=== PATIENT | female | born 1985 | race Caucasian/White ===

== ENCOUNTER 2017-11-18 11:04 | Emergency (ER) | payer OTHER, SELFPAY ==
[2017-11-18 11:06] VITALS: BP 126/69; PULSE 99; RESP 16; TEMP 36.6; O2SAT 99; BMI 29.7
[2017-11-18 11:47] LABS: Absolute Lymphocyte Count 1.35 X10^3/ul (0.83-4.51); Absolute Neutrophil Count 5.6 X10^3/uL (2.0-7.7); Basophil# 0.04 X10^3/uL; Basophil% 0.5 % (0-1); Eosinophils% 1.3 % (0-5); Hematocrit 42.3 % (37-47); Lymphocyte # 1.35 X10^3/ul (4.0); Lymphocyte % 17.9 % (19-41); Mean Corp Hgb Conc 35.5 g/gl (32-36); Mean Corpuscular Hgb 29.6 pg (27.0-32.0); Mean Corpuscular Volume 83.6 fL (81-99); Mean Platelet Vol. 9.5 fl (6.2-12.0); Monocyte# 0.41 X10^3/uL; Monocyte% 5.4 % (0-10); Neutrophil # 5.63 X10^3/uL (2.7-7.7); Neutrophil % 74.8 % (47-70); POSITIVE COUNT NO; POSITIVE DIFFERENTIAL NO; POSITIVE MORPHOLOGY NO; Platelet Count 212 K/mm3 (150-450); RBC Distribution Width CV 12.7 % (11.6-14.6); RBC Distribution Width SD 38.5 fl (35.1-43.9); Red Blood Count 5.06 M/mm3 (4.2-5.4); White Blood Count 7.5 K/mm3 (4.4-11.0)
[2017-11-18 11:48] VITALS: BP 115/73; BP 119/82; PULSE 84; PULSE 89
[2017-11-18] MEDS: 0.9% Normal Saline 1,000 ML 1000 ML IV (11:50)
[2017-11-18 12:03] LABS: Anion Gap 8 (5-15); BUN 12 mg/dL (7-18); BUN/Creat Ratio 17.1 RATIO (10-20); Calcium,Total 8.9 mg/dL (8.5-10.1); Chloride 106 mmol/L (98-107); EST Glomerular Filtration Rate 102 mL/min (>60); Est Glom Filt Rate - Afr Amer 124 mL/min (>60); Estimated Creatinine Clearance 116.39 ml/min; Glucose 92 mg/dL (74-106); Sodium Level 140 mmol/L (136-145)
--- NOTE | 2017-11-18 13:02 | ED.VISSUMM ---
- ER Visit Summary Date of Service: 11/18/17 Chief Complaint: Syncope and lightheadedness History of Present Illness: The patient is a 32 F who presents because of inability to stand without assistance. Last evening while she was putting on her sleep attire she passed out. She does recall becoming warm nauseous prior to passing out. She denies any vomiting or diarrhea. She denies black or maroon stool. She denies any abdominal pain or back pain. She has not had a menstrual period in 1 years since she underwent ablation. She denies fever, chills or night sweats. She denies chest pain, shortness of breath or difficulty breathing. She denies leg pain, swelling or discoloration. She denies any urologic symptoms. For chronic back pain secondary to occupation. was concerned because she complains of bifrontal headache and light sensitivity. She denies neck pain or neck stiffness. She denies any other symptoms. Please read written note. Physical Examination: Vital signs are normal. Orthostatic vital signs were unobtainable because patient cannot stand. Head is atraumatic normocephalic. Pupils are equal round reactive. Extraocular muscles are intact. TMs are pearly white with landmarks noted. Nares patent with no drainage. Posterior pharynx without erythema or exudate. Uvula is midline. There is no dysphonia or dysphasia. Trachea is midline. There is no stridor with auscultation of the neck. Heart is regular without murmur, gallop or rub. S1 and S2 are normal. Lungs are clear to auscultation with good movement of air bilaterally. Abdomen is soft nontender. No hepatosplenomegaly. No guarding or rebound tenderness. There is no asymmetry, swelling, discoloration, leg vein distention, palpable cords or tenderness along the distribution of the deep venous system. Patient is alert and oriented ?3. Motor is 5 over 5. Sensory is intact. DTRs are symmetric with no clonus or Babinski sign. Cranial 2 through 12 are intact. Cerebellar testing is normal. Test Results: CBC and BMP are unremarkable. Orthostatic vital signs are positive. Emergency Department Course and Treatment: Static vital signs and baseline blood work. She did receive 1 L normal saline. After receiving the 1 L normal saline she is now able to stand and was able to walk to the restroom to void. Treatment Plan: Appropriate home-going instructions Disposition: Discharged home in stable and improved condition with spouse Impression: 1. Vasovagal syncopal episode 2. Orthostatic hypotension This note was generated with [employer] dictation software. It may contain incorrect words, spelling, and punctuation that were not noted in review of the chart prior to signing ED Disposition - Plan for ED Patient: Disposition: Home or Assisted Living Chief Complaint: Syncope Instructions: ED Hypotension Orthostatic, ED Syncope Vasovagal Referrals: Jovana Rudd MD [Primary Care Provider] - As Needed
--- NOTE | 2017-11-18 13:12 | ED.RN ---
REVIEWED D/C INSTRUCTIONS, FOLLOW UP CARE, AND S/S THAT WOULD WARRANT A RETURN TO THE ED WITH PT. PT VERBALIZED AN UNDERSTANDING AND DENIES FURTHER QUESTIONS FOR THIS RN. PT SKIN P/W/D, RESP EVEN AND UNLABORED, PT A&O X 3, NO DISTRESS NOTED. PT AMBULATED OUT OF ED, GAIT STEADY.
== END 2017-11-18 13:12 | disposition home or self-care (01) ==
PROVIDERS: Emergency Provider Emergency Medicine; Family Provider Internal Medicine; PCP Internal Medicine
DX: I95.1 Orthostatic hypotension (principal); F32.9 Major depressive disorder, single episode, unspecified
CPT/HCPCS: 80048; 85025; 99284

== ENCOUNTER → 2024-12-11 | Outpatient (CLI) | payer BC, SELFPAY ==
--- NOTE | 2024-12-11 12:56 | US_ITS ---
PROCEDURE: PELVIC W/ TRANSVAGINAL 12/11/2024 REASON FOR EXAM: PELVIC PAIN; POST ABLATION 2016 TECHNIQUE: Transabdominal pelvic ultrasound COMPARISON: None. FINDINGS: The uterus is retroverted and heterogeneous in appearance. The uterus measures up to 8.6 x 6.4 x 5.4 cm. A fibroid is noted within the uterus measuring up to 2 x 1.6 x 1.5 cm. The fibroid is located within the posterior wall. The endometrial thickness measures up to 6.5 mm. The ovaries demonstrate normal arterial and venous flow without evidence of ovarian torsion. The right ovary measures up to 2.4 x 3.1 x 2.3 cm. The left ovary measures up to 2.9 x 3.8 x 1.7 cm. Bilateral ovaries contains cysts. Trace free fluid seen within the cul-de-sac. US/Pelvic w/ Transvaginal IMPRESSION: The uterus appears somewhat heterogeneous. Correlate clinically for adenomyosi s. A 2 cm fibroid is noted within the uterus. No evidence of ovarian torsion. Reading Location: [id number]
== END | disposition home or self-care (01) ==
PROVIDERS: Referring Provider Nurse Practitioner Family; Visit Provider Nurse Practitioner Family
DX: R10.2 Pelvic and perineal pain (principal)
CPT/HCPCS: 76830; 76856

== ENCOUNTER 2025-05-08 05:22 | Day surgery (SDC) | payer BC, SELFPAY ==
[2025-04-24 16:43] LABS: Hematocrit 39.0 % (37-47); Hemoglobin 13.1 g/dL (12.0-15.0); Immature Granulocytes Count 0.030 X10^3/uL (0.0-0.0); Mean Corp Hgb Conc 33.6 g/dL (32-36); Mean Corpuscular Volume 86.9 fL (81-99); Mean Platelet Vol. 9.5 fl (6.2-12.0); NRBC Flagged by Analyzer 0 % (0-5); Platelet Count 263 K/mm3 (150-450); RBC Distribution Width CV 12.4 % (11.6-14.6); RBC Distribution Width SD 39.3 fl (35.1-43.9); Red Blood Count 4.49 M/mm3 (4.2-5.4); White Blood Count 9.0 K/mm3 (4.4-11.0)
[2025-04-24 17:04] LABS: Magnesium 1.9 mg/dL (1.5-2.2)
[2025-05-08] VITALS (15 sets, daily range): BP systolic 109–155; BP diastolic 72–97; PULSE 70–93; RESP 14–22; TEMP 36.1–36.9; O2SAT 95–100; BMI 32.8
--- OUTSIDE RECORDS SUMMARY | 2025-05-08 05:25 | XMS RPT_ITS | CCD ---
Author Organization [facility] Care Team Providers Care Certified Peer Specialist Name Role Phone PHYSICIAN, NONE Primary Care Physician Unavailab Starla Manrique MD Primary Care Provider CLEMENTE SEGURA MD Attending Unavailable BILLY MADISON MD Attending Unavailable STARLA EDDY Primary Care Unavailable PODLOGARCAROL Attending Unavailable STARLA EDDY Primary Care Unavailable Dr. Starla Eddy MD Primary Care Provider Dr. Starla Eddy MD Referring Provider Anayeli Garcia Attending Provider Krishna RIVET TESTER-CAnayeli Referring Provider Care Physician, No Primary Primary Care Provider Unavailable Care Physician, No Primary Referring Provider Un available Dr. Ambika Prieto DO Attending Provider Care Physician, No Primary Primary Care Provider Unavailable Ambika Prieto Attending Unavailabl e Care Physician, No Primary Referring Unava ilable Care Physician, No Primary Primary Care Unava ilable Care Physician, No Primary Primary Care Unava ilable Ambika Prieto Attending Unavailabl e Care Physician, No Primary Referring Unava ilable Care Physician, No Primary Primary Care Unava ilable Ambika Prieto Attending Unavailabl e Care Physician, No Primary Referring Unava ilable Starla Eddy Referring Unavailable Starla Eddy Primary Care Unavailable Anayeli Keller Attending Unavailable Ambika Prieto Attending UnavailAmbika Jacques Referring Unavailabl e Care Physician, No Primary Primary Care Unava ilable Care Physician, No Primary Primary Care Unava ilable Anayeli Keller Attending Unavailable Anayeli Keller Referring Unavailable Anayeli Keller Referring Unavailable Care Physician, No Primary Primary Care Unava ilable Barkman, Anayeli Attending Unavailable Medications Current Medications Medication Drug Class(es) Dates Sig (Normalized) Sig (Original) acetaminophen 325 mg / HYDROcodone bitartrate 5 mg oral tablet (2 sources) Opioid Agonist Start: 2024 End: 02-19-2024 take 1 tablet by mouth every six hours as needed for pain Hudson 325- 5 mg oral tablet Dose = 1 tab(s), Oral, q6h, PRN As needed for severe pain, X 3 day(s), # 12 tab(s), 0 Refill(s), Pyelonephritis, 87 Start Date: 02/16/24 Stop Date: 02/19/24 Status: Ordered Start: 02-18-2023 End: 02-21-2023 take 1 tablet by mouth every four hours as needed for pain Hudson 325- 5 mg oral tablet Dose = 1 tab(s), Oral, q4h, PRN as needed for pain, X 3 day(s), # 18 tab(s), 0 Refill(s), [facility]acy: [facility] #[id number], Status post laparoscopy Status post hysteroscopy, 170.2, cm, 02/18/23 7:15:00 EDT, Height, 92.7 Start Date: 02/18/23 Stop Date: 02/21/23 Status: Ordered cephalexin 500 mg oral capsule (3 sources) Cephalosporin Antibacterial Start: 02-12-2024 End: 02-22-2024 cephalexin 500 mg oral capsule Dose : 500 mg = 1 cap(s), Oral, q6hr, X 10 day(s), # 40 cap(s), 0 Refill(s), 02/22/24 5:43:00 PM EDT, 92.7 Start Date: 02/12/24 Stop Date: 02/22/24 Status: Ordered ibuprofen 600 mg oral tablet (3 sources) Nonsteroidal Anti-inflammatory Drug Start: 02-18-2023 ibuprofen 600 mg oral tablet Dose : 600 mg = 1 tab(s), Oral, q6h, # 40 tab(s), 0 Refill(s), Pharmacy: [facility] #[id number], 170.2, cm, 02/18/23 7:15:00 EDT, Height Start Date: 6/29/23 Status: Ordered magnesium gluconate 500 mg oral tablet (4 sources) Start: 02-04-2023 magnesium gluconate 500 mg oral tablet Dose : 1,000 mg = 2 tab(s), Oral, qHS, 0 Refill(s) Start Date: 02/04/23 Status: Ordered multivitamin tablet (3 sources) take 1 tablet by mouth once daily multivitamin tablet Take 1 tablet by mouth once daily. 0 Active naproxen sodium 550 mg oral tablet (2 sources) Nonsteroidal Anti-inflammatory Drug Start: 02-12-2024 End: 02-22-2024 take 1 tablet by mouth once, then take 1 tablet by mouth twice daily Anaprox-DS 550 mg oral tablet Dose : 550 mg = 1 tab(s), PO, BID, X 10 day(s), # 20 tab(s), 0 Refill(s), 02/22/24 5:43:00 PM EDT Start Date: 02/12/24 Stop Date: 02/22/24 Status: Ordered Kalaeloa (Nk) (2 sources) Start: 03-09-2025 Kalaeloa (Nk) Active March 09, 2025 12:00am ondansetron 4 mg oral tablet (3 sources) Serotonin-3 Receptor Antagonist Start: 2024 End: 02-19-2024 Zofran 4 mg oral tablet Dose : 4 mg = 1 tab(s), Oral, q6h, PRN As needed for nausea and vomiting, X 3 day(s), # 12 tab(s), 0 Refill(s), 02/19/24 12:12:00 PM EDT Start Date: 02/16/24 Stop Date: 02/19/24 Status: Ordered Start: 02-12-2024 End: 02-15-2024 take 1 tablet by mouth twice daily as needed for nausea Zofran ODT use ondansetron oral tablet, disintegrating Dose : 8 mg =, Oral, BID, As needed for nausea vomiting, # 6 tab(s), 0 Refill(s) Start Date: 02/12/24 Stop Date: 02/15/24 Status: Ordered Probiotic (4 sources) Start: 02-04-2023 take 1 capsule by mo uth once daily Probiotic 1 cap, Oral, Daily, 0 Refill(s) Start Date: 02/04/23 Status: Ordered Completed/Discontinued Medications Medication Drug Class(es) Dates Sig (Normalized) Sig (Original) 24 hr buPROPion hydrochloride 150 mg extended release oral tablet (3 sources) Aminoketone Start: 11-18-2017 End: 11-27-2024 take 1 tablet by mouth once daily Bupropion Hcl 150 MG tablet extended release 24 hr Discontinued 150 mg PO DAILY November 18, 2017 12:00am November 27, 2024 11:25am Problems Active Problems Problem Classification Problem Date Documented Date Episodic/Chronic Complications of surgical procedures or medical care (2 sources) Postoperative complication; 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] 03-09-2025 Episodic Disorders of lipid metabolism (3 sources) Hyperlipidemia; Translations: [Hyperlipidemia, unspecified] 10-17-2006 Chronic Menstrual disorders (6 sources) Menorrhagia; Translations: [Excessive and frequent menstruation with regular cycle] Onset: 6 10-08-2015 Chronic Other screening for suspected conditions (not mental disorders or infectious disease) (2 sources) Encounter for screening mammogram for malignant neoplasm of breast; Translations: [Encounter for other screening for malignant neoplasm of breast] Onset: 5 Episodic Other upper respiratory disease (3 sources) Allergic rhinitis; Translations: [Other allergic rhinitis] 06-08-2006 Chronic Residual codes; unclassified (2 sources) Past history of procedure; Translations: [Other specified postprocedural states] Onset: 3 Episodic Urinary tract infections (3 sources) Tubulointerstitial nephritis; Translations: [Tubulo-interstitial nephritis, not specified as acute or chronic] Onset: 4 Episodic Past or Other Problems Problem Classification Problem Date Documented Da te Episodic/Chronic Abdominal pain (15 sources) Right lower quadrant pain; Translations: [Right lower quadrant pain] Onset: 12-16-2006 Resolved: 11-30-2012 Episodic Comment on above: s/p ablation 2017 Anxiety disorders (3 sources) Anxiety state; Translations: [Generalized anxiety disorder] Resolved: 03-13-2013 03-13-2013 Chronic Biliary tract disease (3 sources) Gallstone; Translations: [Calculus of gallbladder without cholecystitis without obstruction] Onset: 09-15-2007 Resolved: 11-30-2012 11-30-2012 Episodic Contraceptive and procreative management (4 sources) Reversal of sterilization done; Translations: [Encounter for reversal of previous sterilization] Onset: 02-18-2023 Resolved: 11-30-2012 Episodic Other gastrointestinal disorders (3 sources) History of pancreatitis; Translations: [Personal history of other diseases of the digestive system] Onset: 03-29-2014 Resolved: 04-05-2014 08-18-2021 Episodic Other non-traumatic joint disorders (3 sources) Pain in right shoulder; Translations: [Pain in joint, shoulder region] Onset: 11-12-2017 11-12-2017 Episodic Other and delivery including normal (9 sources) ; Translations: [Encounter for supervision of normal , unspecified, unspecified trimester] Onset: 10-18-2012 Resolved: 12-19-2014 08-18-2021 Episodic Pancreatic disorders (not diabetes) (3 sources) Chronic pancreatitis; Translations: [Other chronic pancreatitis] Onset: 09-16-2007 Resolved: 03-13-2013 08-18-2021 Chronic Pancreatic disorders (not diabetes) (3 sources) Acute pancreatitis; Translations: [Acute pancreatitis without necrosis or infection, unspecified] Resolved: 03-13-2013 03-13-2013 Episodic Spondylosis; intervertebral disc disorders; other back problems (3 sources) Low back pain; Translations: [Lumbago] Onset: 02-19-2006 Resolved: 06-08-2006 06-08-2006 Episodic Sprains and strains (3 sources) Strain of right trapezius muscle; Translations: [Strain of other muscles, fascia and tendons at shoulder and upper arm level, right arm, initial encounter] Onset: 11-12-2017 11-12-2017 Episodic Results Test Name Value Interpretation Reference Range Facility CBC W/Diff, Automatedon 09-0 -2024 Absolute Lymph 2.76 X10 3/uL Normal 0.83-4.51 [facility] Comment on above: Performed By: #### L 100.0100, BTSPAT #### [facility] [address] [place], [place], [id number] Absolute Neut 5.4 X10 3/uL Normal 2.0-7.7 [facility] Comment on above: Performed By: #### L 100.0100, BTSPAT #### [facility] [address] [place], [address] Basophils/100 WBC (Bld) 0.8 % Normal 0-1 [facility] Comment on above: Performed By: #### L 100.0100, BTSPAT #### [facility] [address] [place], [address] Eosinophils/100 WBC (Bld) 3.7 % Normal 0-5 [facility] Comment on above: Performed By: #### L 100.0100, BTSPAT #### [facility] [address] [place], [address] Erythrocyte distribution width (RBC) [Ratio] 12.4 % Normal 11.6-14.6 [facility] Comment on above: Performed By: #### L 100.0100, BTSPAT #### [facility] [address] [place], [address] Hematocrit (Bld) [Volume fraction] 39.0 % Normal 37-47 [facility] Comment on above: Performed By: #### L 100.0100, BTSPAT #### [facility] [address] [place], [address] Hemoglobin (Bld) [Mass/Vol] 13.1 g/dL Normal 12.0-15.0 [facility] Comment on above: Performed By: #### L 100.0100, BTSPAT #### [facility] [address] [place], [address] IG% 0.300 Normal 0.0-0.9 [facility] Comment on above: Result Comment: IG% - Immature Granulocytes (promyelocytes, myelocytes and metamyelocytes) > 1% indicates that a LEFT SHIFT is Present. Performed By: #### L 100.0100, BTSPAT #### [facility] [address] [place], [address] Lymphocytes/100 WBC (Bld) 30.7 % Normal 19-41 [facility] Comment on above: Performed By: #### L 100.0100, BTSPAT #### [facility] [address] [place], [address] MCH (RBC) [Entitic mass] 29.2 pg Normal 27.0-32.0 [facility] Comment on above: Performed By: #### L 100.0100, BTSPAT #### [facility] [address] [place], [address] MCHC (RBC) [Mass/Vol] 33.6 g/dL Normal 32-36 [facility] Comment on above: Performed By: #### L 100.0100, BTSPAT #### [facility] [address] [place], [address] MCV (RBC) [Entitic vol] 86.9 fL Normal 81-99 [facility] Comment on above: Performed By: #### L 100.0100, BTSPAT #### [facility] [address] [place], [address] Monocytes/100 WBC (Bld) 4.7 % Normal 0-10 [facility] Comment on above: Performed By: #### L 100.0100, BTSPAT #### [facility] [address] [place], [address] Neutrophils/100 WBC (Bld) 59.8 % Normal 47-70 [facility] Comment on above: Performed By: #### L 100.0100, BTSPAT #### [facility] [address] [place], [address] Nucleated RBC (Bld) [#/Vol] 0 10*3/uL Normal 0-5 [facility] Comment on above: Performed By: #### L 100.0100, BTSPAT #### [facility] [address] [place], [address] Platelet mean volume (Bld) [Entitic vol] 9.5 fL Normal 6.2-12.0 [facility] Comment on above: Performed By: #### L 100.0100, BTSPAT #### [facility] [address] [place], [address] Platelets (Bld) [#/Vol] 263 10*3/uL Normal 150-450 [facility] Comment on above: Performed By: #### L 100.0100, BTSPAT #### [facility] [address] [place], [address] RBC (Bld) [#/Vol] 4.49 10*6/uL Normal 4.2-5.4 [facility] Comment on above: Performed By: #### L 100.0100, BTSPAT #### [facility] [address] [place], [address] RDW SD 39.3 fl Normal 35.1-43.9 [facility] Comment on above: Performed By: #### L 100.0100, BTSPAT #### [facility] [address] [place], [address] WBC (Bld) [#/Vol] 9.0 10*3/uL Normal 4.4-11.0 [facility] Comment on above: Performed By: #### L 100.0100, BTSPAT #### [facility] [address] [place], [address] Magnesiumon 04-24-2025 Magnesium [Mass/Vol] 1.9 mg/dL Normal 1.5-2.2 [facility] Comment on above: Performed By: #### L 501.5200 #### [facility] [address] [place], [address] [employer] Office Visit Reporton 04-24-2025 [employer] Office Visit Report [facility], [address] [place] [address] OFFICE VISIT Date of Service: 04/24/25 MR#: [id number] Acct: [id number] Name: VIC PAZ Rep #: [id number] : 1985 Provider: Dr. Ambika Castellanos DO Age/Sex: 40/F [place] [facility] [place]: Signed Intake Vital Signs 03/09/25 14:32 04/24/25 15:57 04/24/25 15:59 Height 5 ft 8 in 5 ft 8 in 5 ft 8 in Weight: 207 lb 4 oz 214 lb BMI 31.5 32.5 BP 128/79 H 109/72 Intake Visit Reasons: TRH Cysto End Lathe Operator Required: No Is patient in pain?: No Allergies No Known Allergies Allergy (Verified 04/24/25 15:57) Medications ???Medication ???Instructions ???Recorded ???Confirmed ???Type NK 03/09/25 04/24/25 History Post menopausal: No Patient : No : No PFSH Medical History Former smoker Headache Lipoma Anxiety High cholesterol Surgical History H/O bilateral salpingectomy S/P D C (status post dilation and curettage) S/P appendectomy S/P tonsillectomy and adenoidectomy S/P cholecystectomy Family History Grandmother Hypertension Grandfather Heart disease CVA (cerebral vascular accident) Social History adopted: No household members: family housing: house number of children: 3 current occupational status: employed current occupation: [employer] pets and animals: Yes pets and animals: cat(s) and dog(s) history of recent travel: No sexually active: Yes Smoking Status: Former smoker second hand exposure: No alcohol intake: current alcohol intake frequency: holidays/special occasions only Alcohol type: wine substance use type: does not use well-balanced diet: daily or most days caffeine: Yes Type: carbonated beverages Number of servings: 1 and coffee Number of servings: 1 eating out: other details: 1/week during the past year weight has: decreased > 10 lbs what type of physical activity do you participate in: other details: gym frequency: 3-4 times per week duration: 30-45 minutes/day eileen/faith: Yarsanism seatbelt use: always do you feel safe at home: Yes additional social history: - Jonnathan HPI TRH Cysto Details: VIC PAZ is a 40 year old (vaginal) who presents for surgery consultation. She is status post ablation and tubal ligation with essure and then laparoscopy. 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 SHe still has light bleeding from time to time but her pain is severe enough that it keeps her in bed. Ultrasound showed the following: REASON FOR EXAM: PELVIC PAIN; POST ABLATION 2017 TECHNIQUE: Transabdominal pelvic ultrasound COMPARISON: None. FINDINGS: The uterus is retroverted and heterogeneous in appearance. The uterus measures up to 8.6 x 6.4 x 5.4 cm. A fibroid is noted within the uterus measuring up to 2 x 1.6 x 1.5 cm. The fibroid is located within the posterior wall. The endometrial thickness measures up to 6.5 mm. The ovaries demonstrate normal arterial and venous flow without evidence of ovarian torsion. The right ovary measures up to 2.4 x 3.1 x 2.3 cm. The left ovary measures up to 2.9 x 3.8 x 1.7 cm. Bilateral ovaries contains cysts. Trace free fluid seen within the cul-de-sac. US/Pelvic w/ Transvaginal IMPRESSION: The uterus appears somewhat heterogeneous. Correlate clinically for adenomyosis. A 2 cm fibroid is noted within the uterus. No evidence of ovarian torsion. History 5 Elective abortions Hx Para 3 Spontaneous abortions Hx # Term Pregnancies Ectopic pregnancies Hx # Pregnancies Multiple births # of living children 3 ROS Const ROS Unobtainable: All systems reviewed are unremarkable except as noted in H Resp Resp: Reports system reviewed and no additional complaints, except as documented; Denies cough GI GI: Reports as per HPI Psych Psych: Reports system reviewed and no additional complaints, except as documented Exam Const General: cooperative, healthy appearing, comfortable and no acute distress Resp Effort Inspection: normal respiratory effort Skin General: no rashes or lesions noted Psych Appearance: grossly normal Speech and Movement: speech and movement normal Coding Level of Care Code Off vis,est,level 4 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 Normal [facility] Type AND Screen - PAT ONLYon 04-24-2025 Ab SCREEN GEL Negative Normal [facility] Comment on above: Order Comment: Surge ry Date: 04/24/25 Reason for Laboratory Test SUGRERY [id number] No N N S HYSTERECTOMY Performed By: #### L 100.0100, BTSPAT #### [facility] [address] [place], [address] [employer] Office Visit Reporton 03-09-2025 [employer] Office Visit Report [facility] [address], [address] [place] [address] OFFICE VISIT Date of Service: 03/09/25 MR#: [id number] Acct: [id number] Name: VIC PAZ Joyce Rep #: [id number] : 1985 Provider: Dr. Ambika Castellanos DO Age/Sex: 40/F [place] [facility] [place]: Signed Intake Vital Signs 11/27/24 11:22 03/09/25 14:32 Height 5 ft 8 in 5 ft 8 in Weight: 207 lb 4 oz BMI 31.5 BP 128/79 H Intake Visit Reasons: Hysterectomy consult *$30 copay ok per triage Chief Complaint: Hysterectomy Consult End Lathe Operator Required: No Is patient in pain?: No Allergies No Known Allergies Allergy (Verified 03/09/25 14:30) Medications ???Medication ???Instructions ???Recorded ???Confirmed ???Type NK 03/09/25 03/09/25 History Post menopausal: No Patient : No : No PFSH Medical History Headache Lipoma Anxiety High cholesterol Surgical History H/O bilateral salpingectomy S/P D C (status post dilation and curettage) S/P appendectomy S/P tonsillectomy and adenoidectomy S/P cholecystectomy Family History Grandmother Hypertension Grandfather Heart disease CVA (cerebral vascular accident) Social History adopted: No household members: family housing: house number of children: 3 current occupational status: employed current occupation: [employer] pets and animals: Yes pets and animals: cat(s) and dog(s) history of recent travel: No sexually active: Yes Smoking Status: Never smoker second hand exposure: No alcohol intake: current alcohol intake frequency: holidays/special occasions only Alcohol type: wine substance use type: does not use well-balanced diet: daily or most days caffeine: Yes Type: carbonated beverages Number of servings: 1 and coffee Number of servings: 1 eating out: other details: 1/week during the past year weight has: decreased > 10 lbs what type of physical activity do you participate in: other details: gym frequency: 3-4 times per week duration: 30-45 minutes/day eileen/faith: Yarsanism seatbelt use: always do you feel safe at home: Yes additional social history: - Jonnathan YAZMIN Hysterectomy consult *$30 copay ok per triage Details: VIC PAZ is a 40 year old (vaginal) who presents for surgery consultation. She is status post ablation and tubal ligation with essure and then laparoscopy. 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 SHe still has light bleeding from time to time but her pain is severe enough that it keeps her in bed. Ultrasound showed the following: REASON FOR EXAM: PELVIC PAIN; POST ABLATION 2016 TECHNIQUE: Transabdominal pelvic ultrasound COMPARISON: None. FINDINGS: The uterus is retroverted and heterogeneous in appearance. The uterus measures up to 8.6 x 6.4 x 5.4 cm. A fibroid is noted within the uterus measuring up to 2 x 1.6 x 1.5 cm. The fibroid is located within the posterior wall. The endometrial thickness measures up to 6.5 mm. The ovaries demonstrate normal arterial and venous flow without evidence of ovarian torsion. The right ovary measures up to 2.4 x 3.1 x 2.3 cm. The left ovary measures up to 2.9 x 3.8 x 1.7 cm. Bilateral ovaries contains cysts. Trace free fluid seen within the cul-de-sac. US/Pelvic w/ Transvaginal IMPRESSION: The uterus appears somewhat heterogeneous. Correlate clinically for adenomyosis. A 2 cm fibroid is noted within the uterus. No evidence of ovarian torsion. History 5 Elective abortions Hx Para 3 Spontaneous abortions Hx # Term Pregnancies Ectopic pregnancies Hx # Pregnancies Multiple births # of living children 3 ROS Const ROS Unobtainable: All systems reviewed are unremarkable except as noted in H Resp Resp: Reports system reviewed and no additional complaints, except as documented; Denies cough GI GI: Reports as per HPI Psych Psych: Reports system reviewed and no additional complaints, except as documented Exam Const General: cooperative, healthy appearing, comfortable and no acute distress Resp Effort Inspection: normal respiratory effort Skin General: no rashes or lesions noted Psych Appearance: grossly normal Speech and Movement: speech and movement normal Coding Level of Care Code Off vis,est,level 4 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 Normal [facility] Pelvic w/ Transvaginalon Pelvic w/ Transvaginal [facility] [address] [place] [address] Pelvic w/ Transvaginal MR#: [id number] Acct: [id number] Name: VIC PAZ Joyce Rep #: [id number] : 1985 F 39 From: Guerrero Madison i, MD PCP: Care Physician,No Primary Status: REG CLI Study: Pelvic w/ Transvaginal Date of Exam: 12/11/24 Exam# [id number] Ordering Dr: Anayeli Keller RIVET TESTER-C PROCEDURE: PELVIC W/ TRANSVAGINAL 12/11/2024 REASON FOR EXAM: PELVIC PAIN; POST ABLATION 2016 TECHNIQUE: Transabdominal pelvic ultrasound COMPARISON: None. FINDINGS: The uterus is retroverted and heterogeneous in appearance. The uterus measures up to 8.6 x 6.4 x 5.4 cm. A fibroid is noted within the uterus measuring up to 2 x 1.6 x 1.5 cm. The fibroid is located within the posterior wall. The endometrial thickness measures up to 6.5 mm. The ovaries demonstrate normal arterial and venous flow without evidence of ovarian torsion. The right ovary measures up to 2.4 x 3.1 x 2.3 cm. The left ovary measures up to 2.9 x 3.8 x 1.7 cm. Bilateral ovaries contains cysts. Trace free fluid seen within the cul-de-sac. US/Pelvic w/ Transvaginal IMPRESSION: The uterus appears somewhat heterogeneous. Correlate clinically for adenomyosis. A 2 cm fibroid is noted within the uterus. No evidence of ovarian torsion. Reading Location: [id number] CC: MARILUZ Keller; No Primary Care Physician Application Spec: Signed Normal [facility] [employer] Office Visit Reporton 11-27-2024 [employer] Office Visit Report [facility] [address], [address] [place] [address] OFFICE VISIT Date of Service: 11/27/24 MR#: [id number] Acct: [id number] Name: VIC PAZ Rep #: [id number] : 1985 Provider: MARILUZ Negro Age/Sex: 39/F Location[facility] Status: Signed Intake Vital Signs 11/18/17 11:06 11/27/24 11:15 11/27/24 11:22 Height 5 ft 8 in 5 ft 8 in 5 ft 8 in Weight: 201 lb BMI 30.5 BP 105/70 Intake Visit Reasons: 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) End Lathe Operator Required: No Is patient in pain?: No Allergies No Known Allergies Allergy (Verified 11/27/24 11:18) Is last menstrual period known: No Patient : No : No Do you think of yourself as: straight/heterosexu al Current gender identity: female [facility]LY [facility] Medical History (Updated 11/27/24 @ 11:50 by MARILUZ Pradhan) Headache Lipoma Anxiety High cholesterol Surgical History (Updated 11/27/24 @ 11:26 by Anayeli Keller NP-C) H/O bilateral salpingectomy S/P D C (status post dilation and curettage) S/P appendectomy S/P tonsillectomy and adenoidectomy S/P cholecystectomy Family History Grandmother Hypertension Grandfather Heart disease CVA (cerebral vascular accident) Social History adopted: No household members: family housing: house number of children: 3 current occupational status: employed current occupation: [employer] pets and animals: Yes pets and animals: cat(s) and dog(s) history of recent travel: No sexually active: Yes Smoking Status: Never smoker second hand exposure: No alcohol intake: current alcohol intake frequency: holidays/special occasions only Alcohol type: wine substance use type: does not use well-balanced diet: daily or most days caffeine: Yes Type: carbonated beverages Number of servings: 1 and coffee Number of servings: 1 eating out: other details: 1/week during the past year weight has: decreased > 10 lbs what type of physical activity do you participate in: other details: gym frequency: 3-4 times per week duration: 30-45 minutes/day eileen/faith: Yarsanism seatbelt use: always do you feel safe at home: Yes additional social history: - Jonnathan History 5 Elective abortions Hx Para 3 Spontaneous abortions Hx # Term Pregnancies Ectopic pregnancies Hx # Pregnancies Multiple births # of living children 3 HPI Encounter for routine gynecological examination Details: VIC PAZ is a 39 year old who presents for annual exam. She reports she has history of ablation-completed in 2016. She reports in the last year and a half/2 yrs she has had spotting and cramping. She reports sometimes her cramping is so severe that she has to take Motrin and heating pad. She does have spotting with this. In 2022 she did have a procedure to have a piece of Essure removed from uterus. Last PAP: 2022; normal per patient-Dr Rivera [facility] office[place]. Request records. History of abnormal PAP: at age 20; LEEP completed and negative per patient. Normal PAP smears since. Last mammogram: None History of abnormal mammogram: None Colon cancer screening: none Other preventative health care screenings: PCP: --for records if needed. Female Reproductive History Last Menstrual Period: 10/21/24 (around this time; unsure specific. ) Cycle Length: 21-35 Bleeding Duration: 2 Questions: metorrhagia: No, sexually active: Yes, dyspareunia: No and PCB: No ROS Const Constitutional: Denies chills, fatigue, fever(s), headache(s) or weight loss Eyes Eyes: Denies change in vision ENT ENT: Denies dizziness Resp Resp: Denies cough GI GI: Denies abdominal pain, constipation or nausea : Denies difficulty voiding, dysuria, hematuria, nipple discharge, pelvic pain, prolapse symptoms, urinary incontinence, vaginal discharge, vaginal dryness, vaginal odor or vaginal pruritus Skin Skin/Breast: Denies alopecia, rash, breast mass, breast pain, breast skin changes or nipple discharge Neuro Neuro: Denies dizziness Psych Psych: Denies anxiety or depression Endo Endo: Denies cold intolerance, excessive sweating or heat intolerance Exam Const General: cooperative, healthy appearing, comfortable, no acute distress, well groomed and well hydrated Nutritional Appearance: well nourished Orientation: alert, awake and oriented x3 HENMT Head: normal to inspection and normocephalic Ears: hearing grossly normal bilaterally and external ears normal Nose: external nose normal Face and sinus: normal facial exam Eyes General: appearance normal, both eyes and all related structures Neck Neck: normal visual inspection, full ROM and no lymphadenopathy Thyroid: thyroid no (more content not included)... Normal [facility] Bacteria Ur Culton Bacteria identified Cx Nom (U) CULTURE, URINE: No growth (<1,000 CFU/ml) Normal [facility] Comment on above: Performed By: #### 6 30-4 #### [facility] CLIA [id number] [address] [place] [address] [place] CNOVon 03-23-2024 CNOV Office Visit (UCWSTR) ---- VIC PAZ ([id number]) 1985 F Date Time Provider Department 03/23/24 4:45 PM JOHNATHAN TREJO UCWSTR During your visit today, we recorded the following information about you: Temperature Pulse Respiration Blood pressure 98.4 degrees 65/minute 18/minute 124/85 Weight Last Period 86 kg 03/23/24 Johnathan Trejo APRN.WINE CONSULTANT 03/23/2024 5:30 PM Signed Subjective HPI Nontoxic-appearing female presents urgent care chief complaint left flank pain. Duration of symptom 1 day. Associated symptoms episodic left flank pain. Rates pain 3-4 out of 10. No current pain. Presents today concerned about possible kidney infection. 4 weeks ago was seen at [facility]. Diagnosed with pyelonephritis. Urine culture positive susceptible to antibiotics. During skin no calculi were noted. Presents today for evaluation. States this does not feel muscle skeletal. Pain is not reproducible. Has not had pain during today's visit. Denies any fever body aches chills nausea vomiting abdominal pain vaginal discharge vaginal itching. No rashes. Currently on menstrual cycle. Is not breast-feeding. Denies chance of . Past medical history prescription medications allergies reviewed. .Patient presents with: Flank Pain: Left side x 1 day PAST MEDICAL HISTORY 2005: Abnormal Pap smear of cervix 11/27: Acute pancreatitis Comment: idiopathic vs ? ocp (was on 1 yr)-no problem since No date: Allergic rhinitis due to other allergen No date: Anemia No date: Anxiety state, unspecified Comment: on 6 mo, w/ ocd traits No date: Benign neoplasm of skin, site unspecified Comment: rt shoulder, large melanocytic, but no change since childhood No date: Headache(784.0) Comment: see 11/27 notes No date: Lipoma Comment: mid back, 2 cm, not changed in yrs No date: Other and unspecified hyperlipidemia Comment: ldl 160+ No date: Surveillance of other previously prescribed contraceptive method Comment: depo: too much spotting- used for 6mo. Loestrin: ? pancreatitis. 11/12/2017: Trapezius muscle strain, right, initial encounter PAST SURGICAL HISTORY 2008: APPENDECTOMY 02/26: CHOLECYSTECTOMY Comment: chronic sweta without stones No date: DILATION AND CURETTAGE DXAND/THER NONOBSTETRIC Comment: Dilation AND curettage 01/24/15: ESSURE 2017: HYSTEROSCOPY,W/ENDO METRIAL ABLATION Comment: Chayo No date: PAST SURGICAL HISTORY OF Comment: Tubes in ears 2017: SALPINGECTOMY Comment: removal of essures 1995: TONSILLECTOMY PRIMARY/SECONDARY Comment: Tonsillectomy ALLERGIES Patient has no known allergies. MEDICATIONS multivitamin tablet Take 1 tablet by mouth once daily. FAMILY HISTORY Problem Relation Age of Onset Hypertension Maternal Grandmother Stroke Maternal Grandfather Hypertension Paternal Grandmother Heart Paternal Grandfather Social History Tobacco Use Smoking status: Former Packs/day: 0.50 Years: 7.00 Additional pack years: 0.00 Total pack years: 3.50 Types: Cigarettes Quit date: 10/21/2009 Years since quittin.4 Smokeless tobacco: Never Substance Use Topics Alcohol use: Yes Comment: maybe once or twice a month, couple drinks,NOT WHILE Drug use: No BP 124/85 Pulse 65 Temp 36.9 ?C (98.4 ?F) Resp 18 Wt 86 kg (189 lb 9.5 oz) LMP 03/23/2024 SpO2 100% BMI 30.14 kg/m? Review of Systems Constitutional: Negative for chills, fever and malaise/fatigue. HENT: Negative for congestion, ear discharge, ear pain, sinus pain and sore throat. Eyes: Negative for blurred vision, pain, discharge and redness. Respiratory: Negative for cough, hemoptysis, sputum production, shortness of breath, wheezing and stridor. Cardiovascular: Negative for chest pain. Gastrointestinal: Negative for abdominal pain, diarrhea, nausea and vomiting. Genitourinary: Positive for flank pain. Negative for dysuria, frequency, hematuria and urgency. Musculoskeletal: Negative for myalgias. Skin: Negative for itching and rash. Neurological: Negative for dizziness and headaches. Objective Physical Exam Constitutional: General: She is not in acute distress. Appearance: She is not diaphoretic. HENT: Head: Normocephalic. Jaw: No trismus, tenderness, swelling or pain on movement. Eyes: Conjunctiva/sclera: Conjunctivae normal. Pupils: Pupils are equal, round, and reactive to light. Cardiovascular: Rate and Rhythm: Normal rate and regular rhythm. Heart sounds: Normal heart sounds. Pulmonary: Effort: Pulmonary effort is normal. No tachypnea, accessory muscle usage or respiratory distress. Breath sounds: Normal breath sounds. No stridor. No wheezing, rhonchi or rales. Abdominal: General: There is no distension. Palpations: Abdomen is soft. Tenderness: There is no abdominal tenderness. There is no right CVA tenderness, left CVA tenderness, guarding (more content not included)... Normal [facility] UA DIP, URINE (POC)on 2023 BILIRUBIN UA (POCT) Negative Negative [facility] CLARITY UA (POCT) Clear [facility] COLOR UA (POCT) Yellow [facility] GLUCOSE UA (POCT) Negative Negative mg/dL [facility] Hemoglobin Ql (U) Trace-intact Abnormal Negative [facility] Interpretation and review of laboratory results Abnormal [facility] KETONE UA (POCT) Negative Negative mg/dL [facility] LEUKOCYTES UA (POCT) Negative Negative [facility] NITRITE UA (POCT) Negative Negative [facility] PH UA (POCT) 6.5 4.5 - 8.0 [facility] Protein Ql (U) Negative Negative mg/dL [facility] SPECIFIC GRAVITY UA (POCT) 1.025 1.005 - 1.030 [facility] UROBILINOGEN UA (POCT) 0.2 Normal E.U./dL [facility] Location:[address], [place], [place], [id number] [place] [address] POINT OF CARE [facility] .Auto Diffon 2024 Basophil, Absolute 0.0 10 3/mcL Normal 0.0-0.2 [facility] ([place]) Comment on above: Performed By: #### M JARED, ANEU, ADIFF, CBC #### [address] [place], [place] [address] Basophils/100 WBC (Bld) 0.4 % Normal 0.0-2.5 [facility] ([place]) Comment on above: Performed By: #### M JARED, ANEU, ADIFF, CBC #### [address] [place], [place] [address] Eosinophil, Absolute 0.1 10 3/mcL Normal 0.0-0.4 [facility] ([place]) Comment on above: Performed By: #### M JARED, ANEU, ADIFF, CBC #### [address] [address] Eosinophils/100 WBC (Bld) 0.6 % Normal 0.0-7.0 [facility] ([place]) Comment on above: Performed By: #### M JARED, ANEU, ADIFF, CBC #### [address] [address] Lymphocyte, Absolute 1.6 10 3/mcL Normal 0.8-3.9 [facility] ([place]) Comment on above: Performed By: #### M JARED, ANEU, ADIFF, CBC #### [address] [address] Lymphocytes/100 WBC (Bld) 16.6 % Normal 10.0-50.0 [facility] ([place]) Comment on above: Performed By: #### M JARED, ANEU, ADIFF, CBC #### [address] [address] Monocyte, Absolute 1.1 10 3/mcL High 0.2-1.0 [facility] ([place]) Comment on above: Performed By: #### M JARED, ANEU, ADIFF, CBC #### [address] [address] Monocytes/100 WBC (Bld) 10.7 % Normal 1.7-13.0 [facility] ([place]) Comment on above: Performed By: #### M JARED, ANEU, ADIFF, CBC #### [address] [address] Neutrophils/100 WBC (Bld) 71.7 % Normal 37.0-80.0 [facility] ([place]) Comment on above: Performed By: #### M JARED, ANEU, ADIFF, CBC #### [address] [address] .GFRon 2024 GFR 93 ml/min/1.73sqm Normal [facility] ([place]) Comment on above: Result Comment: GFR Population mean for , Non- Americans Ages 20-29 = 116 mL/min/1.73 sq.m. Ages 30-39 = 107 mL/min/1.73 sq.m. Ages 40-49 = 99 mL/min/1.73 sq.m. Ages 50-59 = 93 mL/min/1.73 sq.m. Ages 60-69 = 85 mL/min/1.73 sq.m. Ages 70+ = 75 mL/min/1.73 sq.m. Chronic Kidney Disease: Less than 60 mL/min/1.73 square meters End Stage Renal Disease: Less than 15 mL/min/1.73 square meters Performed By: #### P REGU, UA, UAMICAO #### [address] [address] GFR Non- 77 ml/min/1.73sqm Normal [facility] ([place]) Comment on above: Result Comment: GFR Population mean for , Non- Americans Ages 20-29 = 116 mL/min/1.73 sq.m. Ages 30-39 = 107 mL/min/1.73 sq.m. Ages 40-49 = 99 mL/min/1.73 sq.m. Ages 50-59 = 93 mL/min/1.73 sq.m. Ages 60-69 = 85 mL/min/1.73 sq.m. Ages 70+ = 75 mL/min/1.73 sq.m. Chronic Kidney Disease: Less than 60 mL/min/1.73 square meters End Stage Renal Disease: Less than 15 mL/min/1.73 square meters Performed By: #### P REGU, UA, UAMICAO #### [address] [address] .MDWon 2024 Monocyte Distribution Width 25.56 High 0.00-20.00 [facility] ([place]) Comment on above: Result Comment: For adults in ED, MDW>20.0 may be associated with a higher risk of sepsis during the first 12hrs of hospital admission Performed By: #### M JAN COLEMAN ADIFF, CBC #### [address] [address] .NEUABSon 2024 Neutrophil, Absolute 7.1 10 3/mcL High 2.9-6.2 [facility] ([place]) Comment on above: Performed By: #### M JARED ANEU, ADIFF, CBC #### [place] [id number] CBCon 2024 Erythrocyte distribution width (RBC) [Ratio] 12.9 % Normal 11.5-14.5 [facility] ([place]) Comment on above: Performed By: #### M JARED, ANEU, ADIFF, CBC #### [place] [address] Hematocrit (Bld) [Volume fraction] 36.6 % Low 37.0-47.0 [facility] ([place]) Comment on above: Performed By: #### M JAN COLEMAN, ADIFF, CBC #### [place] [address] Hgb 12.7 G/dL Normal 12.0-16.0 [facility] ([place]) Comment on above: Performed By: #### M JARED, ANEU, ADIFF, CBC #### [place] [address] MCH (RBC) [Entitic mass] 29.7 pg Normal 27.0-31.2 [facility] ([place]) Comment on above: Performed By: #### M JARED ANEU, ADIFF, CBC #### [place] [address] MCHC 34.8 G/dL Normal 33.0-37.0 [facility] ([place]) Comment on above: Performed By: #### M JARED, ANEU, ADIFF, CBC #### [place] [address] MCV (RBC) [Entitic vol] 85.4 fL Normal 80.0-94.0 [facility] ([place]) Comment on above: Performed By: #### M JARED, ANEU, ADIFF, CBC #### [place] [address] Platelet 238 10 3/mcL Normal 130-400 [facility] ([place]) Comment on above: Performed By: #### M JAN COLEMAN ADIFF, CBC #### [address] [address] Platelet mean volume (Bld) [Entitic vol] 7.4 fL Normal 7.4-10.4 [facility] ([place]) Comment on above: Performed By: #### M JAN COLEMAN ADIFF, CBC #### [address] [address] RBC 4.28 10 6/mcL Normal 4.20-5.40 [facility] ([place]) Comment on above: Performed By: #### M JAN COLEMAN ADIFF, CBC #### [address] [address] WBC 9.9 10 3/mcL Normal 4.6-10.8 [facility] ([place]) Comment on above: Performed By: #### M JAN COLEMAN ADIFF, CBC #### [address] [address] CMPon 2024 Albumin Level 3.5 G/dL Normal 3.5-5.0 [facility] ([place]) Comment on above: Performed By: #### C MP, GFR #### [address] [address] Albumin/Globulin [Mass ratio] 0.9 {ratio} Low 1.1-2.5 [facility] ([place]) Comment on above: Performed By: #### C MP, GFR #### [address] [address] ALP [Catalytic activity/Vol] 105 U/L Normal 40-135 [facility] ([place]) Comment on above: Performed By: #### C MP, GFR #### [address] [address] ALT [Catalytic activity/Vol] 35 U/L Normal 14-59 [facility] ([place]) Comment on above: Performed By: #### C MP, GFR #### [address] [address] AST [Catalytic activity/Vol] 20 U/L Normal 10-40 [facility] ([place]) Comment on above: Performed By: #### C MP, GFR #### [address] [address] Bili Total 0.4 mg/dL Normal 0.2-1.0 [facility] ([place]) Comment on above: Result Comment: Use of this assay is not recommended for patients undergoing treatment with eltrombopag due to the potential for falsely elevated results. Performed By: #### C MP, GFR #### [address] [address] BUN/Creatinine Ratio 11 ratio Normal 7-27 [facility] ([place]) Comment on above: Performed By: #### C MP, GFR #### [address] [address] Calcium [Mass/Vol] 8.5 mg/dL Normal 8.4-10.2 [facility] ([place]) Comment on above: Performed By: #### C MP, GFR #### [address] [address] Chloride [Moles/Vol] 102 mmol/L Normal 98-107 [facility] ([place]) Comment on above: Performed By: #### C MP, GFR #### [address] [address] CO2 [Moles/Vol] 30 mmol/L High 22-29 [facility] ([place]) Comment on above: Performed By: #### C MP, GFR #### [address] [address] Creatinine [Mass/Vol] 0.83 mg/dL Normal 0.55-1.02 [facility] ([place]) Comment on above: Performed By: #### C MP, GFR #### [address] [address] Electrolyte Balance 9.0 mEq/L Normal 4.0-15.0 [facility] ([place]) Comment on above: Performed By: #### C MP, GFR #### [address] [address] Globulin 3.7 G/dL Normal [facility] ([place]) Comment on above: Performed By: #### C MP, GFR #### [address] [address] Glucose [Mass/Vol] 87 mg/dL Normal 70-105 [facility] ([place]) Comment on above: Performed By: #### C MP, GFR #### [address] [address] Potassium [Moles/Vol] 3.4 mmol/L Low 3.5-5.1 [facility]) Comment on above: Performed By: #### C MP, GFR #### [address] [address] Sodium [Moles/Vol] 141 mmol/L Normal 136-145 [facility]) Comment on above: Performed By: #### C MP, GFR #### [address] [address] Total Protein 7.2 G/dL Normal 6.4-8.2 [facility]) Comment on above: Performed By: #### C MP, GFR #### [address] [address] Urea nitrogen [Mass/Vol] 9 mg/dL Normal 7-18 [facility]) Comment on above: Performed By: #### C MP, GFR #### [address] [address] LABORATORYOrdered By: SYSTEM SYSTEM on 2024 Albumin BCP dye [Mass/Vol] 3.5 G/dL Normal 3.5 - 5.0 G/dL AO ADM SS Albumin/Globulin [Mass ratio] 0.9 {ratio} Low 1.1 - 2.5 ratio AO ADM SS ALP [Catalytic activity/Vol] 105 U/L Normal 40 - 135 U/L AO ADM SS ALT With P-5'-P [Catalytic activity/Vol] 35 U/L Normal 14 - 59 U/L AO ADM SS AST With P-5'-P [Catalytic activity/Vol] 20 U/L Normal 10 - 40 U/L AO ADM SS Basophil, Absolute 0.0 103/mcL Normal 0.0 - 0.2 10^3/mcL AO Workflow SS Basophils/100 WBC (Bld) 0.4 % Normal 0.0 - 2.5 % AO Workflow SS Bilirubin [Mass/Vol] 0.4 mg/dL Normal 0.2 - 1 .0 mg/dL AO ADM SS Comment on above: Interpretive Data: U se of this assay is not recommended for patients undergoing treatment with eltrombopag due to the potential for falsely elevated results. Calcium [Mass/Vol] 8.5 mg/dL Normal 8.4 - 10. 2 mg/dL AO ADM SS Chloride [Moles/Vol] 102 mmol/L Normal 98 - 10 7 mmol/L AO ADM SS CO2 [Moles/Vol] 30 mmol/L High 22 - 29 mmol/L AO ADM SS Creatinine [Mass/Vol] 0.83 mg/dL Normal 0.55 - 1.02 mg/dL AO ADM SS Electrolyte Balance 9.0 mEq/L Normal 4.0 - 15 .0 mEq/L AO ADM SS Eosinophil, Absolute 0.1 103/mcL Normal 0.0 - 0 .4 10^3/mcL AO Workflow SS Eosinophils/100 WBC (Bld) 0.6 % Normal 0.0 - 7.0 % AO Workflow SS Erythrocyte distribution width (RBC) [Ratio] 12.9 % Normal 11.5 - 14.5 % AO Workflow SS GFR/1.73 sq M.predicted among blacks MDRD (S/P/Bld) [Vol rate/Area] 93 ml/min/1.73sqm Invalid Interpretation Code AO Chemistry S Comment on above: Interpretive Data: GFR Population mean for , Non- Americans Ages 20-29 = 116 mL/min/1.73 sq.m. Ages 30-39 = 107 mL/min/1.73 sq.m. Ages 40-49 = 99 mL/min/1.73 sq.m. Ages 50-59 = 93 mL/min/1.73 sq.m. Ages 60-69 = 85 mL/min/1.73 sq.m. Ages 70+ = 75 mL/min/1.73 sq.m. Chronic Kidney Disease: Less than 60 mL/min/1.73 square meters End Stage Renal Disease: Less than 15 mL/min/1.73 square meters GFR/1.73 sq M.predicted among non-blacks MDRD (S/P/Bld) [Vol rate/Area] 77 ml/min/1.73sqm Invalid Interpretation Code AO Chemistry S Comment on above: Interpretive Data: GFR Population mean for , Non- Americans Ages 20-29 = 116 mL/min/1.73 sq.m. Ages 30-39 = 107 mL/min/1.73 sq.m. Ages 40-49 = 99 mL/min/1.73 sq.m. Ages 50-59 = 93 mL/min/1.73 sq.m. Ages 60-69 = 85 mL/min/1.73 sq.m. Ages 70+ = 75 mL/min/1.73 sq.m. Chronic Kidney Disease: Less than 60 mL/min/1.73 square meters End Stage Renal Disease: Less than 15 mL/min/1.73 square meters Globulin 3.7 G/dL Invalid Interpretation Code AO ADM SS Glucose [Mass/Vol] 87 mg/dL Normal 70 - 105 mg/dL AO ADM SS Hematocrit (Bld) [Volume fraction] 36.6 % Low 37.0 - 47.0 % AO Workflow SS Hemoglobin (Bld) [Mass/Vol] 12.7 G/dL Normal 12.0 - 16.0 G/dL AO Workflow SS Lipase [Catalytic activity/Vol] 41 U/L Normal 16 - 77 U/L AO ADM SS Lymphocyte, Absolute 1.6 103/mcL Normal 0.8 - 3 .9 10^3/mcL AO Workflow SS Lymphocytes/100 WBC (Bld) 16.6 % Normal 10.0 - 50.0 % AO Workflow SS MCH (RBC) [Entitic mass] 29.7 pg Normal 27.0 - 31.2 pg AO Workflow SS MCHC 34.8 G/dL Normal 33.0 - 37.0 G/dL AO Workflow SS MCV (RBC) [Entitic vol] 85.4 fL Normal 80.0 - 94.0 fL AO Workflow SS Monocyte distribution width Auto (Bld) [Entitic vol] 25.56 1 High 0.00 - 20.00 AO Workflow SS Comment on above: Result Comment: For adults in ED, MDW>20.0 may be associated with a higher risk of sepsis during the first 12hrs of hospital admission Monocyte, Absolute 1.1 103/mcL High 0.2 - 1.0 10^3/mcL AO Workflow SS Monocytes/100 WBC (Bld) 10.7 % Normal 1.7 - 13.0 % AO Workflow SS Neutrophil, Absolute 7.1 103/mcL High 2.9 - 6 .2 10^3/mcL AO Workflow SS Neutrophils/100 WBC (Bld) 71.7 % Normal 37.0 - 80.0 % AO Workflow SS Platelet mean volume (Bld) [Entitic vol] 7.4 fL Normal 7.4 - 10.4 fL AO Workflow SS Platelets (Bld) [#/Vol] 238 103/mcL Normal 130 - 400 10^3/mcL AO Workflow SS Potassium [Moles/Vol] 3.4 mmol/L Low 3.5 - 5.1 mmol/L AO ADM SS Protein [Mass/Vol] 7.2 G/dL Normal 6.4 - 8.2 G/dL AO ADM SS RBC (Bld) [#/Vol] 4.28 106/mcL Normal 4.20 - 5.4 0 10^6/mcL AO Workflow SS Sodium [Moles/Vol] 141 mmol/L Normal 136 - 145 mmol/L AO ADM SS Urea nitrogen [Mass/Vol] 9 mg/dL Normal 7 - 18 mg/dL AO ADM SS Urea nitrogen/Creatinine [Mass ratio] 11 ratio Normal 7 - 27 ratio AO ADM SS WBC (Bld) [#/Vol] 9.9 103/mcL Normal 4.6 - 10.8 10^3/mcL AO Workflow SS LIPon 2024 Lipase Level 41 U/L Normal 16-77 [facility] ([place]) Comment on above: Performed By: #### P LIBORIO FITCH, HAROON #### Timothy [address] [address] CNOVon 02-14-2024 CNOV Office Visit (FAMPWS) ---- VIC PAZ ([id number]) 1985 F Date Time Provider Department 02/14/24 1:20 PM CAROL CURIEL During your visit today, we recorded the following information about you: Temperature Pulse Respiration Blood pressure 97.6 degrees 71/minute 16/minute 104/70 Weight 87.5 kg Carol Curiel APRN.WINE CONSULTANT 02/14/2024 1:59 PM Signed 02/14/2024 Patient presents with: ED Follow-up: Seen Sat 02/11 at [facility], diagnosed with kidney infection SUBJECTIVE: This is a 38 year old that is here today for Above Complaints. HOSPITAL/ER FOLLOW UP: Reason for visit: left flank pain Which facility: [facility] [place] Date of visit: 02/12/2024 Diagnosis: pyelonephritis Testing done: CT ABD/PEL Treatment given: Keflex Taking Keflex as prescribed. Reports doesn't feel a whole lot better. Fever with chills last night of 100.9. Alternating Motrin and Tylenol with mild little relief. Still with left flank pain 3/10 and wraps around to her left abdomen. Appetite is decreased. Urinating without difficulty. Denies nausea, vomiting, or dysuria. Currently on her menses so does have some blood mixed with her urine No ER records to review at appointment PAST MEDICAL HISTORY Diagnosis Date Abnormal Pap smear of cervix 2005 Acute pancreatitis 11/27 idiopathic vs ? 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 Loestrin: ? pancreatitis. Trapezius muscle strain, right, initial encounter 11/12/2017 ALLERGIES Patient has no known allergies. MEDICATIONS Current Outpatient Medications Medication Sig multivitamin tablet Take 1 tablet by mouth once daily. No current facility-administer ed medications for this visit. Medications and allergies reviewed by this provider. SOCIAL HISTORY Social History Tobacco Use Smoking status: Former Packs/day: 0.50 Years: 7.00 Additional pack years: 0.00 Total pack years: 3.50 Types: Cigarettes Quit date: 10/21/2009 Years since quittin.3 Smokeless tobacco: Never Substance Use Topics Alcohol use: Yes Comment: maybe once or twice a month, couple drinks,NOT WHILE Drug use: No REVIEW OF SYSTEMS All other reviewed and negative other than HPI. OBJECTIVE: BP 104/70 Pulse 71 Temp 36.4 ?C (97.6 ?F) Resp 16 Wt 87.5 kg (192 lb 12.8 oz) LMP 11/06/2016 SpO2 97% BMI 30.65 kg/m? . Vital signs reviewed by this provider. APPEARANCE Well appearing, alert, in no acute distress, well-hydrated, well nourished. EYES conjunctiva and sclera normal. HEART RRR with normal S1 and S2, no murmurs, no gallops, no JVD appreciated LUNG clear to auscultation. No wheezes, rhonchi or rales ABDOMEN bowel sounds normoactive, no bruits, soft, non-tender, non-distended BACK: Patient reports CVA tenderness with palpation SKIN Skin color, texture, turgor normal, no suspicious rashes or lesions to exposed skin Hepatitis B Vaccine(1 of 3 - 19+ 3-dose series) Never done HPV Vaccine(2 - 3-dose series) due on 06/04/2007 Covid-19 Vaccine( - 2022- season) Never done Behavioral Health Screening Never done Cervical Cancer Screening due on 10/29/2023 Influenza Vaccine(Season Ended) due on 04/23/2024 DTaP,Tdap,Td Vaccine(4 - Td or Tdap) due on 08/17/2024 Hepatitis C Screening Completed HIV Screening Completed ASSESSMENT/PLAN: 1. Acute pyelonephritis - ICD9: 590.10, ICD10: N10 - reviewed ER discharge and it says to follow-up with Dr. Luna at [facility] for culture results which she has not - discussed with patient she can reach out to them to see if culture results are back which would let them know if she is on appropriate antibiotic- if she is unable to get a hold of them I recommend she return to ER for re evaluation. Patient agreeable with plan Carol Podlogar, DUSTER TENDER.WINE CONSULTANT Prescription instructions reviewed with patient as applicable. Patient advised if symptoms do not improve or if symptoms worsen sooner, to contact their primary care physician. Potential red flag symptoms discussed with the patient. Reviewed appropriate action plan to take if red flag symptoms occur. Patient agreeable to treatment plan. I spent a total of 25 minutes on the date of the service which included preparing to see the patient, [id number] patient care, completing clinical documentation, obtaining and/or reviewing separately obtained history, performing a medically appropriate examination, and counseling and educating (more content not included)... Normal [facility] .Urinalysis Microscopic (AO) on 02-12-2024 UA Bacteria 4+ /hpf Abnormal [facility] ([place]) Comment on above: Performed By: #### P REGU, UA, UAMICAO #### [address] [address] UA RBC 5-10 Abnormal None Seen [facility] ([place]) Comment on above: Performed By: #### P REGU, UA, UAMICAO #### [address] [address] UA Squam Epithelial 5-10 Abnormal None Seen [facility] ([place]) Comment on above: Performed By: #### P REGU, UA, UAMICAO #### [address] [address] UA WBC LOADED Abnormal None Seen [facility] ([place]) Comment on above: Performed By: #### P REGU, UA, UAMICAO #### [address] [address] [address] ABDOMEN/PELVIS W/O CONTRA STon 02-12-2024 CT ABDOMEN/PELVIS W/O CONTRAST ORIGINAL EXAMINATION: CT OF THE ABDOMEN AND PELVIS WITHOUT CONTRAST 02/12/2024 5:13 pm TECHNIQUE: CT of the abdomen and pelvis was performed without the administration of intravenous contrast. Multiplanar reformatted images are provided for review. Automated exposure control, iterative reconstruction, and/or weight based adjustment of the mA/kV was utilized to reduce the radiation dose to as low as reasonably achievable. COMPARISON: CT abdomen pelvis 08/10/2015 HISTORY: ORDERING SYSTEM PROVIDED HISTORY: Reason for Exam: LEFT flank pain FINDINGS: No acute osseous abnormalities. No significant degenerative changes. Small bilateral pars defects at L5-S1. The visualized lung bases are predominantly clear. No pleural or pericardial effusion. Cholecystectomy clips. The unenhanced liver, spleen, pancreas, and adrenal glands are unremarkable. Mild haziness and fat stranding surrounding the left kidney. No evidence of hydronephrosis or urolithiasis. Small calcific density adjacent to the left uterus was also seen on prior and is favored to represent a pelvic phlebolith. The bladder is unremarkable. Small calcific density in the right uterus may represent a calcified fibroid or surgical clip. No adnexal masses. Small amount of free pelvic fluid, which may be physiologic in nature. Small calcifications in the region of the cervix/lower uterus. The uterus is retroflexed and retroverted, unchanged since 2015. The stomach and small bowel are unremarkable. The appendix is not definitively identified, however no pericecal inflammation is seen. The colon is unremarkable. Nonaneurysmal aorta. No pathologically enlarged lymph nodes are identified. No free intraperitoneal air. Small fat containing umbilical hernia. IMPRESSION: Mild haziness and fat stranding surrounding the left kidney with no visualized obstructive uropathy. This may be seen with an ascending infectious/inflamma tory process. Correlation with urinalysis is recommended. Additional chronic and incidental findings as above. I have personally reviewed the images of this examination and agree with the resident's findings and interpretation. Interpreted by: Nikolai Brewster Preliminary Report By: Idalia Samson Electronically signed By Nikolai Brewster Dictated Date: 02/12/2024 5:24:21 PM Prelim Date: 02/12/2024 5:32:48 PM Sign Date: 02/12/2024 5:37:47 PM Ordering Provider: CLEMENTE Garcia [facility] ([place]) LABORATORYOrdered By: Kay Lassiter on 02-12-2024 Appearance (U) Slightly Cloudy *ABN* (02/12/24 4:22 PM) Invalid Interpretation Code Clear AO Auto Urine SS Bacteria LM.HPF (Urine sed) [#/Area] 4 /[HPF] Invalid Interpretation Code AO Auto Urine SS Bilirubin Ql (U) Negative (02/12/24 4:22 PM) Normal Negative AO Auto Urine SS Color (U) Yellow (02/12/24 4:22 PM) Normal AO Auto Urine SS Glucose Test strip (U) [Mass/Vol] Negative Normal Negative AO Auto Urine SS HCG ( test) Ql Negative (02/12/24 4:22 PM) Normal AO Manual Urine SS Hemoglobin Auto test strip (U) [Mass/Vol] Small *ABN* (02/12/24 4:22 PM) Invalid Interpretation Code Negative AO Auto Urine SS Ketones Ql (U) Negative Normal Negative AO Auto Ur ine SS test (u) int Not detected Invalid Interpretation Code AO Manual Urine SS UA Leuk Est Moderate *ABN* (02/12/24 4:22 PM) Invalid Interpretation Code Negative AO Auto Urine SS UA Nitrite Positive *ABN* (02/12/24 4:22 PM) Invalid Interpretation Code Negative AO Auto Urine SS UA pH 6.0 (02/12/24 4:22 PM) Normal 5.0 - 8.0 AO Auto Urine SS UA Protein Trace mg/dL Normal Negative AO Auto Urine SS UA RBC 5-10 /HPF Invalid Interpretation Code None Seen AO Auto Urine SS UA Spec Grav 1.025 (02/12/24 4:22 PM) Normal 1.015-1.025 AO Auto Urine SS UA Specimen Type Clean Catch (02/12/24 4:22 PM) Normal AO Auto Urine SS UA Squam Epithelial 5-10 /HPF Invalid Interpretation Code None Seen AO Auto Urine SS UA Urobilinogen 0.2 E.U./dL Normal 0.2-1.0 AO Auto Urine SS WBC LM.HPF (Urine sed) [#/Area] LOADED /HPF Invalid Interpretation Code None Seen AO Auto Urine SS PREGUon 02-12-2024 HCG ( test) Ql (U) Negative Normal [facility] ([place]) Comment on above: Performed By: #### P REGU, UA, UAMICAO #### [address] [address] test (u) int Not detected Invalid Interpretation Code [facility] ([place]) Comment on above: Performed By: #### P REGU, UA, UAMICAO #### [address] [address] UAon 02-12-2024 Color (U) Yellow Normal [facility] ([place]) Comment on above: Performed By: #### P REGU, UA, UAMICAO #### [address] [address] Glucose (U) [Mass/Vol] Negative Normal Negative [facility] ([place]) Comment on above: Performed By: #### P REGU, UA, UAMICAO #### [address] [address] Ketones Ql (U) Negative Normal Negative [facility] ([place]) Comment on above: Performed By: #### P REGU, UA, UAMICAO #### [place] [address] UA Appear Slightly Cloudy Abnormal Clear [facility] ([place]) Comment on above: Performed By: #### P REGU, UA, UAMICAO #### [address] [address] UA Blood Small Abnormal Negative [facility] ([place]) Comment on above: Performed By: #### P REGU, UA, UAMICAO #### [address] [address] UA Leuk Est Moderate Abnormal Negative [facility] ([place]) Comment on above: Performed By: #### P REGU, UA, UAMICAO #### [place] [id number] UA Nitrite Positive Abnormal Negative [facility] ([place]) Comment on above: Performed By: #### P REGU, UA, UAMICAO #### [place] [address] UA pH 6.0 Normal 5.0 - 8.0 [facility] ([place] Comment on above: Performed By: #### P REGU, UA, UAMICAO #### [place] [address] UA Protein Trace Normal Negative [facility] ([place]) Comment on above: Performed By: #### P REGU, UA, UAMICAO #### [place] [address] UA Spec Grav 1.025 Normal 1.015-1.025 [facility] ([place]) Comment on above: Performed By: #### P REGU, UA, UAMICAO #### [address] [address] UA Specimen Type Clean Catch Normal [facility] ([place]) Comment on above: Performed By: #### P REGU, UA, UAMICAO #### [address] [address] UA Urobilinogen 0.2 E.U./dL Normal 0.2-1.0 [facility] ([place]) Comment on above: Performed By: #### P REGU, UA, UAMICAO #### [address] [address] Urobilinogen (U) [Mass/Vol] Negative Normal Negative [facility] ([place]) Comment on above: Performed By: #### P REGU, UA, UAMICAO #### [address] [address] LABORATORYOrdered By: Lloyd Reza on 02-18-2023 HCG ( test) Ql Negative (02/18/23 6:46 AM) Invalid Interpretation Code AO Manual Urine SS test (u) int Not detected Invalid Interpretation Code AO Manual Urine SS LABORATORYOrdered By: Kait Lei on 02-04-2023 Basophil, Absolute 0.1 103/mcL Invalid Interpretation Code 0.0 - 0.2 10^3/mcL AO Workflow SS Basophils/100 WBC (Bld) 1.2 % Invalid Interpretation Code 0.0 - 2.5 % AO Workflow SS Eosinophil, Absolute 0.1 103/mcL Invalid Interpretation Code 0.0 - 0.4 10^3/mcL AO Workflow SS Eosinophils/100 WBC (Bld) 1.9 % Invalid Interpretation Code 0.0 - 7.0 % AO Workflow SS Erythrocyte distribution width (RBC) [Ratio] 13.1 % Invalid Interpretation Code 11.5 - 14.5 % AO Workflow SS Hematocrit (Bld) [Volume fraction] 41.0 % Invalid Interpretation Code 37.0 - 47.0 % AO Workflow SS Hemoglobin (Bld) [Mass/Vol] 14.0 G/dL Invalid Interpretation Code 12.0 - 16.0 G/dL AO Workflow SS Lymphocyte, Absolute 2.4 103/mcL Invalid Interpretation Code 0.8 - 3.9 10^3/mcL AO Workflow SS Lymphocytes/100 WBC (Bld) 34.5 % Invalid Interpretation Code 10.0 - 50.0 % AO Workflow SS MCH (RBC) [Entitic mass] 28.7 pg Invalid Interpretation Code 27.0 - 31.2 pg AO Workflow SS MCHC 34.2 G/dL Invalid Interpretation Code 33.0 - 37.0 G/dL AO Workflow SS MCV (RBC) [Entitic vol] 83.9 fL Invalid Interpretation Code 80.0 - 94.0 fL AO Workflow SS Monocyte, Absolute 0.3 103/mcL Invalid Interpretation Code 0.2 - 1.0 10^3/mcL AO Workflow SS Monocytes/100 WBC (Bld) 3.7 % Invalid Interpretation Code 1.7 - 13.0 % AO Workflow SS Neutrophil, Absolute 4.1 103/mcL Invalid Interpretation Code 2.9 - 6.2 10^3/mcL AO Workflow SS Neutrophils/100 WBC (Bld) 58.7 % Invalid Interpretation Code 37.0 - 80.0 % AO Workflow SS Platelet mean volume (Bld) [Entitic vol] 8.5 fL Invalid Interpretation Code 7.4 - 10.4 fL AO Workflow SS Platelets (Bld) [#/Vol] 238 103/mcL Invalid Interpretation Code 130 - 400 10^3/mcL AO Workflow SS RBC (Bld) [#/Vol] 4.89 106/mcL Invalid Interpretation Code 4.20 - 5.40 10^6/mcL AO Workflow SS WBC (Bld) [#/Vol] 7.0 103/mcL Invalid Interpretation Code 4.6 - 10.8 10^3/mcL AO Workflow SS LABORATORYOrdered By: SYSTEM SYSTEM on 02-04-2023 Calcium [Mass/Vol] 8.9 mg/dL Invalid Interpretation Code 8.4 - 10.2 mg/dL AO ADM SS Chloride [Moles/Vol] 104 mmol/L Invalid Interpretation Code 98 - 107 mmol/L AO ADM SS CO2 [Moles/Vol] 25 mmol/L Invalid Interpretation Code 22 - 29 mmol/L AO ADM SS Creatinine [Mass/Vol] 0.83 mg/dL Invalid Interpretation Code 0.55 - 1.02 mg/dL AO ADM SS Electrolyte Balance 12.0 mEq/L Invalid Interpretation Code 4.0 - 15.0 mEq/L AO ADM SS GFR/1.73 sq M.predicted among blacks MDRD (S/P/Bld) [Vol rate/Area] 94 ml/min/1.73sqm Invalid Interpretation Code AO Chemistry S GFR/1.73 sq M.predicted among non-blacks MDRD (S/P/Bld) [Vol rate/Area] 77 ml/min/1.73sqm Invalid Interpretation Code AO Chemistry S Glucose [Mass/Vol] 100 mg/dL Invalid Interpretation Code 70 - 105 mg/dL AO ADM SS Potassium [Moles/Vol] 4.2 mmol/L Invalid Interpretation Code 3.5 - 5.1 mmol/L AO ADM SS Sodium [Moles/Vol] 141 mmol/L Invalid Interpretation Code 136 - 145 mmol/L AO ADM SS Urea nitrogen [Mass/Vol] 10 mg/dL Invalid Interpretation Code 7 - 18 mg/dL AO ADM SS Urea nitrogen/Creatinine [Mass ratio] 12 ratio Invalid Interpretation Code 7 - 27 ratio AO ADM SS CBC and Differentialon 07-17 Abs Baso 0.03 k/uL Normal <0.11 [facility] Comment on above: Performed By: #### C BCDIF, BETAMM, CMP, LIPA #### [facility] [address] [facility] [phone] Abs [place] 0.37 k/uL Normal <0.87 [facility] Comment on above: Performed By: #### C BCDIF, BETAMM, CMP, LIPA #### [facility] [address] [facility] [phone] Abs Neut 5.44 k/uL Normal 1.45-7.50 [facility] Comment on above: Performed By: #### C BCDIF, BETAMM, CMP, LIPA #### [facility] [address] [facility] [phone] Basophils/100 WBC (Bld) 0.4 % Normal [facility] Comment on above: Performed By: #### C BCDIF, BETAMM, CMP, LIPA #### [facility] [address] [facility] [phone] Eosinophils (Bld) [#/Vol] 0.34 10*3/uL Normal <0.46 [facility] Comment on above: Performed By: #### C BCDIF, BETAMM, CMP, LIPA #### [facility] [address] Eosinophils/100 WBC (Bld) 4.2 % Normal [facility] Comment on above: Performed By: #### C BCDIF, BETAMM, CMP, LIPA #### [facility] [address] [place] [address] Erythrocyte distribution width (RBC) [Ratio] 12.8 % Normal 11.5-15.0 [facility] Comment on above: Performed By: #### C BCDIF, BETAMM, CMP, LIPA #### [facility] [address] [place] [address] Hematocrit (Bld) [Volume fraction] 41.5 % Normal 36.0-46.0 [facility] Comment on above: Performed By: #### C BCDIF, BETAMM, CMP, LIPA #### [facility] [address] [place] [address] Hemoglobin (Bld) [Mass/Vol] 13.9 g/dL Normal 11.5-15.5 [facility] Comment on above: Performed By: #### C BCDIF, BETAMM, CMP, LIPA #### [facility] [address] [place] [address] Lymphocytes (Bld) [#/Vol] 1.95 10*3/uL Normal 1.00-4.00 [facility] Comment on above: Performed By: #### C BCDIF, BETAMM, CMP, LIPA #### [facility] [address] [place], [place] [phone] Lymphocytes/100 WBC (Bld) 24.0 % Normal [facility] Comment on above: Performed By: #### C BCDIF, BETAMM, CMP, LIPA #### [facility] [address] [place] [address] MCH (RBC) [Entitic mass] 28.0 pG Normal 26.0-34.0 [facility] Comment on above: Performed By: #### C BCDIF, BETAMM, CMP, LIPA #### [facility] [address] [place] [address] MCHC (RBC) [Mass/Vol] 33.5 g/dL Normal 30.5-36.0 [facility] Comment on above: Performed By: #### C BCDIF, BETAMM, CMP, LIPA #### [facility] [address] [place] [phone] MCV (RBC) [Entitic vol] 83.5 fL Normal 80.0-100.0 [facility] Comment on above: Performed By: #### C BCDIF, BETAMM, CMP, LIPA #### [facility] [address] [place] [phone] Monocytes/100 WBC (Bld) 4.6 % Normal [facility] Comment on above: Performed By: #### C BCDIF, BETAMM, CMP, LIPA #### [facility] [address] Neutrophils/100 WBC (Bld) 66.8 % Normal [facility] Comment on above: Performed By: #### C BCDIF, BETAMM, CMP, LIPA #### [facility] [address] [place] [address] Platelet mean volume (Bld) [Entitic vol] 10.0 fL Normal 9.0-12.7 [facility] Comment on above: Performed By: #### C BCDIF, BETAMM, CMP, LIPA #### [facility] [address] [place], [place] [address] Platelets (Bld) [#/Vol] 232 10*3/uL Normal 150-400 [facility] Comment on above: Performed By: #### C BCDIF, BETAMM, CMP, LIPA #### [facility] [address] [place] [phone] RBC (Bld) [#/Vol] 4.97 10*6/uL Normal 3.90-5.20 [facility] Comment on above: Performed By: #### C BCDIF, BETAMM, CMP, LIPA #### [facility] [address] [place], [place] [address] WBC (Bld) [#/Vol] 8.13 10*3/uL Normal 3.70-11.00 [facility] Comment on above: Performed By: #### C BCDIF, BETAMM, CMP, LIPA #### [facility] [address] [facility] [phone] Comp Metabolic Panelon 07-17 Albumin [Mass/Vol] 4.2 g/dL Normal 3.9-4.9 [facility] Comment on above: Performed By: #### C BCDIF, BETAMM, CMP, LIPA #### [facility] [address] [facility] [phone] ALP [Catalytic activity/Vol] 58 U/L Normal 34-123 [facility] Comment on above: Performed By: #### C BCDIF, BETAMM, CMP, LIPA #### [facility] [address] [facility] [phone] ALT [Catalytic activity/Vol] 13 U/L Normal 7-38 [facility] Comment on above: Performed By: #### C BCDIF, BETAMM, CMP, LIPA #### [facility] [address] [facility] [phone] Anion gap [Moles/Vol] 10 mmol/L Normal 9-18 [facility] Comment on above: Performed By: #### C BCDIF, BETAMM, CMP, LIPA #### [facility] [address] [facility] [phone] AST [Catalytic activity/Vol] 16 U/L Normal 13-35 [facility] Comment on above: Performed By: #### C BCDIF, BETAMM, CMP, LIPA #### [facility] [address] [facility] [phone] Bilirubin [Mass/Vol] 0.3 mg/dL Normal 0.2-1.3 [facility] Comment on above: Performed By: #### C BCDIF, BETAMM, CMP, LIPA #### [facility] [address] [facility] [phone] Calcium [Mass/Vol] 9.2 mg/dL Normal 8.5-10.2 [facility] Comment on above: Performed By: #### C BCDIF, BETAMM, CMP, LIPA #### [facility] [address] [facility] [phone] Chloride [Moles/Vol] 102 mmol/L Normal 97-105 [facility] Comment on above: Performed By: #### C BCDIF, BETAMM, CMP, LIPA #### [facility] [address] [facility] [phone] CO2 [Moles/Vol] 28 mmol/L Normal 22-30 [facility] Comment on above: Performed By: #### C BCDIF, BETAMM, CMP, LIPA #### [facility] [address] [facility] [phone] Creatinine [Mass/Vol] 0.73 mg/dL Normal 0.58-0.96 [facility] Comment on above: Performed By: #### C BCDIF, BETAMM, CMP, LIPA #### [facility] [address] [facility] [phone] eGFR- Amer. >60 Normal [facility] Comment on above: Performed By: #### C BCDIF, BETAMM, CMP, LIPA #### [facility] [address] [facility] [phone] GFR/1.73 sq M predicted among non-blacks MDRD (S/P/Bld) [Vol rate/Area] mL/min/{1.73_m2} Normal [facility] Comment on above: Result Comment: eGFR (Estimated GFR) Units of measure: mL/min/1.73 meters squared eGFR is derived from the reexpressed MDRD Study equation using the following parameters: serum creatinine, age, gender and race. The creatinine assay has been calibrated to be traceable to IDMS. An eGFR <60 mL/min/1.73m2 for >3 months is consistent with chronic kidney disease. Refer to KDOQI guidelines for clinical interpretation. In patients with unstable renal function, e.g. those with acute kidney injury, the eGFR may not accurately reflect actual GFR. Performed By: #### C BCDIF, BETAMM, CMP, LIPA #### [facility] [address] [facility] [phone] Glucose [Mass/Vol] 78 mg/dL Normal 74-99 [facility] Comment on above: Result Comment: The [place] [employer] (ADA) provides guidance for cutoff values for fasting glucose and random glucose. The ADA defines fasting as no caloric intake for at least 8 hours. Fasting plasma glucose results between 100 to 125 mg/dL indicate increased risk for diabetes (prediabetes). Fasting plasma glucose results greater than or equal to 126 mg/dL meet the criteria for diagnosis of diabetes. In the absence of unequivocal hyperglycemia, results should be confirmed by repeat testing. In a patient with classic symptoms of hyperglycemia or hyperglycemic crisis, random plasma glucose results greater than or equal to 200 mg/dL meet the criteria for diagnosis of diabetes. Reference: Standards of Medical Care in Diabetes 2016, [place] [employer]. Diabetes Care. 2016.39(Suppl 1). Performed By: #### C BCDIF, BETAMM, CMP, LIPA #### [facility] [address] [place], [place] [phone] Potassium [Moles/Vol] 3.7 mmol/L Normal 3.7-5.1 [facility] Comment on above: Performed By: #### C BCDIF, BETAMM, CMP, LIPA #### [facility] [address] [place] [address] Protein [Mass/Vol] 6.9 g/dL Normal 6.3-8.0 [facility] Comment on above: Performed By: #### C BCDIF, BETAMM, CMP, LIPA #### [facility] [address] [place] [address] Sodium [Moles/Vol] 140 mmol/L Normal 136-144 [facility] Comment on above: Performed By: #### C BCDIF, BETAMM, CMP, LIPA #### [facility] [address] [place] [address] Urea nitrogen [Mass/Vol] 9 mg/dL Normal 7-21 [facility] Comment on above: Performed By: #### C BCDIF, BETAMM, CMP, LIPA #### [facility] [address] [place], [place] [id number] ED NOTEon 07-17-2019 ED NOTE HNO ID: [id number] Author: Jelena WilliamsonRn) MEENAKSHI Lucia Service: ? Author Type: Registered Nurse Type: ED Notes Filed: 07/17/2019 3:59 PM Note Text: Discharge instructions and prescriptions reviewed with patient via teachback. 2 prescriptions sent with patient. Pt awake and alert, respirations regular and unlabored. Pt verbalizes understanding. No further questions for this RN. [facility] ED NOTE HNO ID: [id number] Author: Yuridia WilliamsonRn) MEENAKSHI Alejandre Service: ? Author Type: Registered Nurse Type: ED Notes Filed: 07/17/2019 2:18 PM Note Text: Medic at bedside for line/labs Normal [facility] ED NOTE HNO ID: [id number] Author: Nguyen (Rn) MEENAKSHI Blandon Service: Nursing Author Type: Registered Nurse Type: ED Notes Filed: 07/17/2019 1:44 PM Note Text: Patient presents to ED with abdominal pain that started this a.m. Patient states she has a hx of pancreatitis, last flare up was about 15 years ago and this feels similar. Patient states pancreatitis was determined to be related to stress [facility] ED PROV NOTEon 07-17-2019 ED PROV NOTE HNO ID: [id number] Author: Pramod Mcwilliams (Pa) Service: ? Author Type: Physician Ap Processor Type: ED Provider Notes Filed: 07/17/2019 3:55 PM Note Text: ED Provider Note Patient Name: Vic Paz SERVICE DATE: 07/17/19 History Patient presents with: Abdominal Pain 34-year-old female with a past medical history of pancreatitis, anxiety, presents that ED today with a chief complaint of abdominal pain. Patient states the pain started this morning and has progressively worsened throughout the day. The pain is in the middle of her abdomen that she states this feels very similar to her pancreatitis flareup. She has had her gallbladder removed as well as her appendix. She denies any alcohol use. Denies any urinary frequency, denies any blood in the urine or stool, denies any vaginal bleeding or discharge, denies any constipation or diarrhea. Patient denies any shortness of breath or chest pain. She took some Motrin this morning without any relief. She denies any other complaints. PAST MEDICAL HISTORY Diagnosis Date - Abnormal Pap smear of cervix 2005 - Acute pancreatitis 11/27 idiopathic vs ? ocp (was on 1 yr)-no problem since - Allergic rhinitis due to other allergen - Anemia - Anxiety state, unspecified on 6 mo, w/ ocd traits - Benign neoplasm of skin, site unspecified rt shoulder, large melanocytic, but no change since childhood - Headache(784.0) see 11/27 notes - Lipoma mid back, 2 cm, not changed in yrs - Other and unspecified hyperlipidemia ldl 160+ - Surveillance of other previously prescribed contraceptive method depo: too much spotting- used for 6mo. Loestrin: ? pancreatitis. - Trapezius muscle strain, right, initial encounter 11/12/2017 PAST SURGICAL HISTORY Procedure Laterality Date - APPENDECTOMY 2007 - DANDC, DIAG AND/OR THERAPEUTIC Dilation AND curettage - ESSURE 01/24/15 - HYSTEROSCOPY,W/ENDO METRIAL ABLATION 2017 [place] - PAST SURGICAL HISTORY OF Tubes in ears - REMOVAL GALLBLADDER 02/26 chronic sweta without stones - REMOVAL OF TONSILS,<12 Y/O 1994 Tonsillectomy - SALPINGECTOMY 2016 removal of essures FAMILY HISTORY Problem Relation Age of Onset - Hypertension Maternal Grandmother - Stroke Maternal Grandfather - Hypertension Paternal Grandmother - Heart Paternal Grandfather Social History Tobacco Use - Smoking status: Former Smoker Packs/day: 0.50 Years: 7.00 Pack years: 3.50 Types: Cigarettes Last attempt to quit: 10/21/2009 Years since quittin.7 - Smokeless tobacco: Never Used Substance and Sexual Activity - Alcohol use: Yes Comment: maybe once or twice a month, couple drinks,NOT WHILE - Drug use: No - Sexual activity: Yes Partners: Male control/protection: Surgical ALLERGIES No Known Allergies Review of Systems Constitutional: Negative for chills and fever. HENT: Negative for drooling, ear discharge, hearing loss, mouth sores, postnasal drip, sneezing and voice change. Eyes: Negative for photophobia and visual disturbance. Respiratory: Negative for chest tightness, shortness of breath and wheezing. Cardiovascular: Negative for chest pain and palpitations. Gastrointestinal: Positive for abdominal pain and nausea. Negative for abdominal distention, anal bleeding, blood in stool, constipation, diarrhea, rectal pain and vomiting. Genitourinary: Negative for dysuria, flank pain, hematuria, pelvic pain, vaginal bleeding and vaginal discharge. Musculoskeletal: Negative for arthralgias, neck pain and neck stiffness. Skin: Negative for color change. Neurological: Negative for dizziness, numbness and headaches. Psychiatric/Behavio ral: Negative for agitation and confusion. The patient is not hyperactive. Physical Exam BP 118/61 Pulse 67 Temp (Src) 97.8 (Oral) Resp 16 Wt 200 lb (90.7kg) SpO2 99% O2 Therapy: Room Air Physical Exam Constitutional: Appearance: She is well-developed. HENT: Head: Normocephalic and atraumatic. Eyes: Conjunctiva/sclera: Conjunctivae normal. Neck: Musculoskeletal: Normal range of motion and neck supple. Cardiovascular: Rate and Rhythm: Normal rate and regular rhythm. Pulmonary: Effort: Pulmonary effort is normal. No respiratory distress. Breath sounds: Normal breath sounds. No wheezing. Abdominal: General: Bowel sounds are normal. Palpations: Abdomen is soft. Tenderness: There is tenderness in the epigastric area. Comments: Abdomen is soft. Bowel sounds active in all 4 quadrants. TTP over the Epigastric region. There is no guarding or rebound tenderness on exam, no murphys or McBurneys, no mass or hernia appreciated on exam, no CVA tenderness Musculoskeletal: Normal range of motion. Skin: General: Skin is warm and dry. Neurological: Mental Status: She is alert and oriented to person, place, and time. Psychiatric: Behavior: Behavior normal. Diagnostic Testing ED Labs Ordered and Reviewed - No data to display Procedures ED Course / Clinical Impression Clinical Impressions as of Jul 17 1552 Epigastric abdominal pain Elevated lipase (R10.13) Epigastric abdominal pain (primary encounter diagnosis) Comment: acute Plan: oxyCODONE-acetamino phen (PERCOCET) 5-325 mg tablet Fluids Zofran Percocet See pcp see gi Return to ed if sx worsen (R74.8) Elevated lipase Comment: acute Plan: oxyCODONE-acetamino phen (PERCOCET) 5-325 mg tablet Fluids Zofran Percocet See pcp and gi Return to ed if sx worsen MDM / Disposition / Plan The medical record is reviewed.Triage note is reviewed and incorporated. The nursing note is reviewed and consistent with patient's history and physical exam findings. The vital signs were reviewed and the vital signs are : BP 118/61 Pulse 67 Temp 36.6 ?C (97.8 ?F) (Oral) Resp 16 Wt 90.7 kg (200 lb) SpO2 99% BMI 31.80 kg/m? This is a well-appearing female with a pmh of pancreatitis who presents to the ED with a chief complaint of abdominal pain who is, afebrile , hemodynamically stable, in no acute distress patient whose symptoms are controlled in the ED with ivf, morphine, zofran and benadryl . The plan is to obtain labs, . Based on patient's pmh, chief complaint and physical exam findings, differential diagnoses include but is not limited, pancreatitis vs acute abdomen, vs pud, vs vs uti. LABS Reveal : lipase of 175 cbc and cmp within normal limits ua within normal limits negative hcg ASSESSMENT AND PLAN: 34-year-old female presents ED for abdominal pain. Patient had a history of peptic otitis in the past and feels that she might have the same thing. Patient states that the symptoms started this morning. She does not drink alcohol, does not have a gallbladder in place. She was told last time she had the pancreatitis flareup that it was stress-induced. After IV fluids and pain medication, patient feels better. Sister. is at bedside. We went over the lab work and due to her elevated lipase I did offer patient an admission for observation for symptomatic control however patient would like to go home. I will give her Percocet and Zofran to go home. She'll hold her PCP and GI doctor. DISCHARGE INSTRUCTIONS The patient has remained hemodynamically stable throughout the entire ED visit and is without objective evidence or laboratory findings for acute process requiring urgent intervention or hospitalization. The patient and/or family had all the tests and diagnosis explained to them and were given both verbal and written discharge instructions. I answered the patient's question as well as family to the best of my ability about the patient's symptoms. The patient is stable for discharge, and patient is instructed to follow up with pcp and educated to return to ed if symptoms worsen or starts to experience any new symptoms. I did educate the patient that at this time there is no indication for urgent intervention or hospitalization, however certain conditions or diagnosis sometimes take time to present, therefore if symptoms worsen, patient should presents back to the ED. Patient and family are agreeable with plan and are comfortable with the disposition. . At this time, based on the patient's history, physical exam findings, lab results and clinical picture , the most likely diagnosis is elevated lipase Pt educated on the most common causes of Elevated lipase Pt was sent home with prescription of zofran, percocet Pt instructed to follow up with PCP in 1-2 days Discharge care instructions, medications, follow up instructions, and reasons to return to the ED immediately, such as worsening of symptoms or any new symptoms, were provided verbally and in writing to patient (patient guardian / sales representative printing), who verbalized understanding. This note was partially generated using [employer] voice recognition system, and there may be some incorrect words, spellings, and punctuation that were not noted in checking the note before saving SIGNATURE: GURJIT Slaughter (Pa) 07/17/19 1555 Normal [facility] Lipaseon 07-17-2019 Lipase [Catalytic activity/Vol] 175 U/L High 16-61 [facility] Comment on above: Performed By: #### C BCDIF, BETAMM, CMP, LIPA #### [facility] [address] [address] Serum Beta HCG East//ANNE/ME D/SL/LOon 07-17-2019 HCG.beta subunit Qn Negative Normal Negative [facility] Comment on above: Result Comment: Fals e positives and false negatives are rare but have been described. Clinical correlation of the findings is recommended. Performed By: #### C BCDIF, BETAMM, CMP, LIPA #### [facility] [address] [place] [address] Urinalysison 07-17-2019 Bilirubin, Urine Negative Normal Negative [facility] Comment on above: Performed By: #### U A, UAMIC #### [facility] [address] [place] [address] Clarity (U) Clear Normal Clear [facility] Comment on above: Performed By: #### U A, UAMIC #### [facility] [address] [place] [address] Color (U) Yellow Normal Yellow [facility] Comment on above: Performed By: #### U A, UAMIC #### [facility] [address] [place] [address] Glucose Ql (U) Negative Normal Negative [facility] Comment on above: Performed By: #### U A, UAMIC #### [facility] [address] [place] [address] Hemoglobin/Blood,Ur Trace Critically abnormal Negative [facility] Comment on above: Performed By: #### U A, UAMIC #### [facility] [address] [place] [address] Ketones Ql (U) Negative Normal Negative [facility] Comment on above: Performed By: #### U A, UAMIC #### [facility] [address] [phone] Leukest Trace Critically abnormal Negative [facility] Comment on above: Performed By: #### U A, UAMIC #### [facility] [address] [place] [address] Nitrite Ql (U) Negative Normal Negative [facility] Comment on above: Performed By: #### U A, UAMIC #### [facility] [address] [address] pH (Bld) 6.0 Normal 5.0-8.0 [facility] Comment on above: Performed By: #### U A, UAMIC #### [facility] [address] [address] Protein (U) [Mass/Vol] Negative Normal Negative [facility] Comment on above: Performed By: #### U A, UAMIC #### [facility] [address] [place] [address] Specific [place], Ur 1.010 Normal 1.001-1.029 [facility] Comment on above: Performed By: #### U A UAMIC #### [facility] [address] [place] [address] Urobilinogen Qn (U) 0.2 Normal 0.2-1.0 [facility] Comment on above: Performed By: #### U A, UAMIC #### [facility] [address] [place] [address] Urine Microscopic (FOR LAB U SE ONLY)on 07-17-2019 Bacteria LM.HPF (Urine sed) [#/Area] Few Critically abnormal 0 [facility] Comment on above: Performed By: #### U A UAMIC #### [facility] [address] [place], [place] [phone] Cast SEE COMMENT Normal 0 [facility] Comment on above: Result Comment: 0 Performed By: #### U A, UAMIC #### [facility] [address] [place] [address] Epithelial cells LM.HPF (Urine sed) [#/Area] SEE COMMENT Normal [facility] Comment on above: Result Comment: 0-5 Squamous Epithelial Cells Performed By: #### U A, UAMIC #### [facility] [address] [place], [place] [phone] RBC (U) [#/Vol] 0-3 Normal 0-3 [facility] Comment on above: Performed By: #### U A, UAMIC #### [facility] [address] [facility] [phone] WBC (Bld) [#/Vol] 0-5 Normal 0-5 [facility] Comment on above: Performed By: #### U A, UAMIC #### [facility] [address] [facility] [phone] Vital Signs Date Time Vital Sign Value Performing Clinician Facility 04-24-2025 15:59-0400 Body height 172.72 cm No Primary Care Physician [facility] 04-24-2025 15:57-0400 Body mass index (BMI) [Ratio] 32.5 kg/m2 No Primary Care Physician [facility] 04-24-2025 15:57-0400 Body weight 97.06 kg No Primary Care Physician [facility] 04-24-2025 15:57-0400 Diastolic blood pressure 72 mm[Hg] No Primary Care Physician [facility] 04-24-2025 15:57-0400 Systolic blood pressure 109 mm[Hg] No Primary Care Physician [facility] 03-09-2025 14:32-0400 Body height 172.[address] Starla Eddy MD Work Phone: [phone] [place] [address] 03-09-2025 14:32-0400 Body mass index (BMI) [Ratio] 31.5 kg/m2 Dr. Starla Eddy MD Work Phone: [phone] [place] [address] 03-09-2025 14:32-0400 Body weight [address] Starla Eddy MD Work Phone: [phone])[phone] [place] [address] 03-09-2025 14:32-0400 Diastolic blood pressure 79 mm[Hg] Dr. Starla Eddy MD Work Phone: [phone])[phone] [place] [address] 03-09-2025 14:32-0400 Systolic blood pressure 128 mm[Hg] Dr. Starla Eddy MD Work Phone: [phone] [place] [address] 11-27-2024 11:22-0400 Body height 172.[address] Starla Eddy MD Work Phone: [phone] [place] [address] 11-27-2024 11:15-0400 Body mass index (BMI) [Ratio] 30.5 kg/m2 Dr. Starla Eddy MD Work Phone: [facility] 11-27-2024 11:15-0400 Body weight 91.[address] Starla Eddy MD Work Phone: [facility] 11-27-2024 11:15-0400 Diastolic blood pressure 70 mm[Hg] Dr. Starla Eddy MD Work Phone: [facility] 11-27-2024 11:15-0400 Systolic blood pressure 105 mm[Hg] Dr. Starla Eddy MD Work Phone: [facility] 03-23-2024 16:58-0400 Body mass index (BMI) [Ratio] 30.14 kg/m2 Johnathan Neil DUSTER TENDER.WINE CONSULTANT Work Phone: [facility] 03-23-2024 16:58-0400 Body temperature 98.4 [degF] Johnathan Trejo DUSTER TENDER.WINE CONSULTANT Work Phone: [facility] 03-23-2024 16:58-0400 Body weight 86 kg Johnathan Trejo DUSTER TENDER.WINE CONSULTANT Work Phone: [facility] 03-23-2024 16:58-0400 Diastolic blood pressure 85 mm[Hg] Johnathan Trejo DUSTER TENDER.WINE CONSULTANT Work Phone: [facility] 03-23-2024 16:58-0400 Heart rate 65 /min Johnathan Trejo DUSTER TENDER.WINE CONSULTANT Work Phone: [facility] 03-23-2024 16:58-0400 Respiratory rate 18 /min Johnathan Trejo DUSTER TENDER.WINE CONSULTANT Work Phone: [facility] 03-23-2024 16:58-0400 SaO2% (BldA) [Mass fraction] 100 % Johnathan Trejo DUSTER TENDER.WINE CONSULTANT Work Phone: [facility] 03-23-2024 16:58-0400 Systolic blood pressure 124 mm[Hg] Johnathan Trejo DUSTER TENDER.WINE CONSULTANT Work Phone: [facility] 2024 10:59-0400 Body height 172.7 cm BILLY MADISON MD [facility] 2024 10:59-0400 Body temperature 98.24 [degF] BILLY MADISON MD [facility] 2024 10:59-0400 Body weight 87 kg BILLY MADISON MD [facility] 2024 10:59-0400 Diastolic Blood Pressure Non-Invasive 76 mm[Hg] BILLY MADISON MD [facility] 2024 10:59-0400 Heart rate 91 /min BILLY MADISON MD [facility] 2024 10:59-0400 Respiratory rate 18 /min BILLY MADISON MD [facility] 2024 10:59-0400 Systolic Blood Pressure Non-Invasive 110 mm[Hg] BILLY MADISON MD [facility] 02-14-2024 13:28-0400 Body mass index (BMI) [Ratio] 30.65 kg/m2 Carol Santoslogjairo DUSTER TENDER.WINE CONSULTANT Work Phone: [facility] 02-14-2024 13:28-0400 Body temperature 97.59 [degF] Carol Podlogjairo DUSTER TENDER.WINE CONSULTANT Work Phone: [facility] 02-14-2024 13:28-0400 Body weight 87.45 kg Carol Santoslogjairo DUSTER TENDER.WINE CONSULTANT Work Phone: [facility] 02-14-2024 13:28-0400 Diastolic blood pressure 70 mm[Hg] Carol Podlogjairo DUSTER TENDER.WINE CONSULTANT Work Phone: [facility] 02-14-2024 13:28-0400 Heart rate 71 /min Carol Podlogar DUSTER TENDER.WINE CONSULTANT Work Phone: [facility] 02-14-2024 13:28-0400 Respiratory rate 16 /min Carol Podlogar DUSTER TENDER.WINE CONSULTANT Work Phone: [facility] 02-14-2024 13:28-0400 SaO2% (BldA) [Mass fraction] 97 % Carol Podlogar DUSTER TENDER.WINE CONSULTANT Work Phone: [facility] 02-14-2024 13:28-0400 Systolic blood pressure 104 mm[Hg] Carol Podlogar DUSTER TENDER.WINE CONSULTANT Work Phone: [facility] 02-12-2024 17:59-0400 Diastolic Blood Pressure Non-Invasive 76 mm[Hg] CLEMENTE SEGURA MD [facility] 02-12-2024 17:59-0400 Heart rate 112 /min CLEMENTE SEGURA MD [facility] 02-12-2024 17:59-0400 Respiratory rate 18 /min CLEMENTE SEGURA MD [facility] 02-12-2024 17:59-0400 Systolic Blood Pressure Non-Invasive 109 mm[Hg] CLEMENTE SEGURA MD [facility] 02-12-2024 16:00-0400 Blood Pressure Cuff Size CLEMENTE SEGURA MD [facility] 02-12-2024 16:00-0400 Blood Pressure Location CLEMENTE SEGURA MD [facility] 02-12-2024 16:00-0400 Blood Pressure Method CLEMENTE SEGURA MD [facility] 02-12-2024 16:00-0400 Body temperature 97.16 [degF] CLEMENTE SEGURA MD [facility] 02-12-2024 16:00-0400 Diastolic Blood Pressure Non-Invasive 80 mm[Hg] CLEMENTE SEGURA MD [facility] 02-12-2024 16:00-0400 Heart rate 109 /min CLEMENTE SEGURA MD [facility] 02-12-2024 16:00-0400 Systolic Blood Pressure Non-Invasive 124 mm[Hg] CLEMENTE SEGURA MD [facility] 02-18-2023 11:00-0400 Diastolic Blood Pressure Non-Invasive 78 1 AMINTA SHEROCK DO [facility] 02-18-2023 11:00-0400 Heart rate 64 /min AMINTA SHEROCK DO [facility] 02-18-2023 11:00-0400 Respiratory rate 16 /min AMINTA SHEROCK DO [facility] 02-18-2023 11:00-0400 Systolic Blood Pressure Non-Invasive 107 1 AMINTA SHEROCK DO [facility] 02-18-2023 10:45-0400 Diastolic Blood Pressure Non-Invasive 69 1 AMINTA SHEROCK DO [facility] 02-18-2023 10:45-0400 Heart rate 68 /min AMINTA SHEROCK DO [facility] 02-18-2023 10:45-0400 Respiratory rate 12 /min AMITNA SHEROCK DO [facility] 02-18-2023 10:45-0400 Systolic Blood Pressure Non-Invasive 114 1 AMINTA SHEROCK DO [facility] 02-18-2023 10:35-0400 Diastolic Blood Pressure Non-Invasive 61 1 AMINTA RAPP DO [facility] 02-18-2023 10:35-0400 Heart rate 71 /min AMINTA RAPP DO [facility] 02-18-2023 10:35-0400 Respiratory rate 23 /min AMINTA NICOLASOCK DO [facility] 02-18-2023 10:35-0400 Systolic Blood Pressure Non-Invasive 113 1 AMINTA RAPP DO [facility] 02-18-2023 10:21-0400 Body temperature 96.8 [degF] AMINTA NICOLASOCK DO [facility] 02-18-2023 10:15-0400 Respiratory Rate - Anes 6 br/min AMINTA RAPP DO [facility] 02-18-2023 10:10-0400 Respiratory Rate - Anes 33 br/min AMINTA RAPP DO [facility] 02-18-2023 10:05-0400 Body temperature 97.52 [degF] AMINTA NICOLASOCK DO [facility] 02-18-2023 10:05-0400 Respiratory Rate - Anes 30 br/min AMINTA RAPP DO [facility] 02-18-2023 10:00-0400 Body temperature 97.38 [degF] AMINTA SHEROCK DO [facility] 02-18-2023 09:55-0400 Body temperature 97.39 [degF] AMINTA FIDENCIOOCK DO [facility] 02-18-2023 06:57-0400 Body height 170.2 cm AMINTA SHEROCK DO [facility] 02-18-2023 06:57-0400 Body temperature 98.42 [degF] AMINTA SHEROCK DO [facility] 02-18-2023 06:57-0400 Body weight 92.7 kg AMINTA SHEROCK DO [facility] 02-18-2023 06:57-0400 Heart rate 87 /min AMINTA SHEROCK DO [facility] 02-04-2023 09:12-0400 Blood Pressure Location AMINTA SHEROCK DO [facility] 02-04-2023 09:12-0400 Body height 170.2 cm AMINTA SHEROCK DO [facility] 02-04-2023 09:12-0400 Body weight 92.7 kg AMINTA SHEROCK DO [facility] 02-04-2023 09:12-0400 Body weight 32 kg/m2 AMINTA SHEROCK DO [facility] 02-04-2023 09:12-0400 Diastolic Blood Pressure Non-Invasive 68 1 AMINTA SHEROCK DO [facility] 02-04-2023 09:12-0400 Heart rate 71 /min AMINTA SHEROCK DO [facility] 02-04-2023 09:12-0400 Respiratory rate 20 /min AMINTA SHEROCK DO [facility] 02-04-2023 09:120400 Systolic Blood Pressure Non-Invasive 104 1 AMINTA RAPP [facility] Encounters Encounter Date Encounter Type Care Provider Facility Start: 05-04-2025 Encounter for other preprocedural examination Ambika Prieto [facility] Start: 04-24-2025 End: 04-24-[address] Ambika Prieto DO -[facility] Work Phone: Start: 04-24-2025 End: 04-24-2025 ambulatory No Primary Care Physician -[facility] Start: 03-09-2025 End: 03-09-[address] Ambika Prieto DO -[facility] Work Phone: Start: 03-09-2025 End: 03-09-[address] Starla Eddy MD Work Phone: -[facility] Start: 03-05-2025 ambulatory No Primary Car e Physician Facility[facility] Start: 02-20-2025 ambulatory No Primary Car e Physician Facility:[facility] Start: 12-11-2024 End: 12-11-[address] Starla Eddy MD Work Phone: [facility] Work Phone: Start: 12-11-2024 End: 12-11-2024 Patient encounter procedure Anayeli MCGRAW -Ultrasound, [facility] Work Phone: Start: 12-11-2024 End: 12-11-2024 ambulatory Anayeli Keller [facility] [facility] Start: 11-27-2024 End: 11-27-2024 Patient encounter procedure Anayeli MCGRAW -[facility] @ Start: 11-27-2024 End: 11-27-2024 Patient encounter status Anayeli MCGRAW [facility] Start: 11-27-2024 End: 11-27-2024 ambulatory Starla Eddy [facility] Start: 03-23-2024 End: 03-23-2024 ambulatory STARLA EDDY Facility:[facility] Start: 03-23-2024 End: 03-23-2024 Office outpatient visit 15 minutes Johnathan Neil DUSTER TENDER.WINE CONSULTANT Work Phone: [facility] Comment on above: Flank pain (Primary Dx) Start: 2024 End: 2024 Emergency department patient visit BILLY MADISON MD [facility] Start: 02-14-2024 End: 02-14-2024 ambulatory CAROL PODLOGAR Facility:[facility] Start: 02-14-2024 End: 02-14-2024 Patient encounter procedure Carol Podlogjairo DUSTER TENDER.WINE CONSULTANT Work Phone: [facility] Comment on above: Acute pyelonephritis (Primary Dx) Start: 02-13-2024 ambulatory Madelin burch RN NURSE WATER OPERATOR Start: 02-13-2024 Follow-up encounter Madelin Lockwood RN NURSE WATER OPERATOR Comment on above: Follow Up Start: 02-12-2024 End: 02-12-2024 Emergency department patient visit CLEMENTE SEGURA MD [facility] Start: 02-18-2023 End: 02-18-2023 SAME DAY STAY AMINTA RAPP DO [facility] Start: 02-04-2023 End: 02-04-2023 Admission to establishment AMINTA RAPP DO [facility] Procedures Date Procedure Procedure Detail Performing Clinician Start: 12-11-[address] Percy Eddy MD Work Phone: Start: 03-23-2024 Urnls dip stick/tabl et rgnt auto w/o microscopy Alex Gipson PA Work Phone: Appendectomy AMINTA Brice DO Cholecystectomy AMINTA TILLEY DO Ligation of fallopian tube N RHEA RAPP DO Plan of Treatment Date Care Activity Detail Author Start: 05-08-2025 ambulatory Ambulatory Facility:[facility] Start: 02-19-2025 MG Breast - bilatera l Screening [facility] Start: 08-17-2024 Urine microalbumin profile DTaP,Tdap,Td Vaccine (4 - Td or Tdap) [facility] Start: 04-23-2024 Influenza vaccination [facility] Start: 10-29-2023 Screening for malign ant neoplasm of cervix Cervical Cancer Screening [facility] Start: 08-23-2023 Behavioral Health Screening Behavioral Health Screening [facility] Start: 04-23-2023 Covid-19 Vaccine ( season) Covid-19 Vaccine ( season) [facility] Start: 06-04-2007 HPV Vaccine (2 - 3-d ose series) HPV Vaccine (2 - 3-dose series) [facility] Start: 02-17-2004 Hepatitis B Vaccine (1 of 3 - 19+ 3-dose series) Hepatitis B Vaccine (1 of 3 - 19+ 3-dose series) [facility] Start: 2003 Anxiety Screening Anxiety Screening [facility] Start: 2003 Depression Screening Depression Scre ening [facility] Bacteria identified in Urine by Culture URINE CULTURE Microbiology Routine Flank pain Ordered: 03/23/2024 [facility] Work Phone: Comment on above: Ordered: 03/23/2024 MG Breast - bilatera l Screening [facility] Immunizations Immunization Date Immunization Notes Care Provider Fa cility 07-30-2021 influenza virus vacc ine, unspecified formulation Madelin Lockwood RN [facility] 08-17-2014 tetanus toxoid, redu carter diphtheria toxoid, and acellular pertussis vaccine, adsorbed Madelin Lockwood RN [facility] 05-28-2014 influenza, seasonal, injectable Madelin Lockwood RN [facility] 01-04-2013 tetanus toxoid, redu carter diphtheria toxoid, and acellular pertussis vaccine, adsorbed Madelin Lockwood RN [facility] 05-07-2007 human papilloma viru s vaccine, quadrivalent Madelin Lockwood RN [facility] 06-08-1997 tetanus and diphther ia toxoids, not adsorbed, for adult use Madelin Lockwood RN [facility] Payers Date Payer Category Payer Self-pay [id number] 2024 Unknown [id number] 2024 Unknown [id number] 2022 Unknown ANTHEM [employer]ALJ[employer]E SS PPO [id number] 2022-Present [phone] [address] [place] [address] PPO [id number] 2022 Unknown [id number] 2021 Private Health Insurance [facility] CHOICE PLUS [id number] 2021-Present [phone] [address] [place] [address] HMO [id number] 1985 Unknown [id number] 1985 Unknown [id number] Unknown [id number] Unknown [id number] Unknown [id number] Unknown [id number] Unknown [id number] Unknown [id number] Unknown [id number] Unknown [id number] Social History Date Type Detail Facility Start: 02-04-2023 End: 04-24-2025 Tobacco smoking status Ex-smoker (finding) [facility] Sex [facility] End: 10-21-2009 History of tobacco use Current smoker [facility] End: 10-21-2009 History of tobacco use Cigarette Smoker [facility] Start: 12-19-2012 End: 09-18-2022 Cigarettes smoked current (pack per day) - Reported 0.5 [facility] Start: 12-19-2012 End: 02-14-2024 Tobacco use and exposure Smokeless tobacco non-user [facility] Start: 07-09-2020 End: 03-23-2024 Alcohol intake Current drinker of alcohol (finding) [facility] Start: 07-09-2020 End: 09-18-2022 Tobacco use panel [facility] PHQ2 Score 0 [facility] Start: 10-18-2012 Alcohol Comment maybe once or twice a month, couple drinks,NOT WHILE [facility] Start: 1985 Sex Assigned At Not on file [facility] Start: 11-27-2024 [facility] Never [facility] tobacco (finding) [facility] Start: 12-14-2024 Sex Female (finding) [facility] Start: 1985 Sex Assigned At Female [facility] Sexual Orientation Heterosexual (finding) [facility] Functional Status Date Assessment Result Facility 2024 Functional Status Assistive Device None A [facility] 02-12-2024 Functional Status Ambulation in [place], Ambulation in Room [facility] 02-18-2023 Functional Status ice on [facility] 02-18-2023 Functional Status Maintained [facility] 02-04-2023 Functional Status Sensory Deficits None A [facility] Mental Status Date Assessment Result Facility 2024 Mental Status Orientation Oriented x 4 [facility] 02-12-2024 Mental Status Oriented x 4 [facility] 02-18-2023 Mental Status Orientation Oriented x 4 [facility] 02-18-2023 Mental Status [facility] Clinical Notes 02-18-2023 to 03-09-2025 Note Date & Type Note Facility 03-09-2025 Evaluation note Diagnosis Onset Date Resolution Pelvic pain acute March 09 2:28pm 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 2:28pm [facility] Work Phone: 1(874) 572-829304-22-2025 Radiology Diagnostic study note [facility] Imaging Services [address] [place] [address] Pelvic w/ Transvaginal MR#: [id number] Acct: [id number] Name: VIC PAZ Rep #: [id number] : 1985 F 39 From: Daniel Mccullough MD PCP: Care Physician,No Primary Status: REG CLI Study:Pelvic w/ Transvaginal Date of Exam: 12/11/24 Exam# [id number] Ordering Dr: Anayeli Keller RIVET TESTER-C PROCEDURE: PELVIC W/ TRANSVAGINAL 12/11/2024 REASON FOR EXAM: PELVIC PAIN; POST ABLATION 2016 TECHNIQUE: Transabdominal pelvic ultrasound COMPARISON: None. FINDINGS: The uterus is retroverted and heterogeneous in appearance. The uterus measures up to 8.6 x 6.4 x 5.4 cm. A fibroid is noted within the uterus measuring up to 2 x 1.6 x 1.5 cm. The fibroid is located within the posterior wall. The endometrial thickness measures up to 6.5 mm. The ovaries demonstrate normal arterial and venous flow without evidence of ovarian torsion. The right ovary measures up to 2.4 x 3.1 x 2.3 cm. The left ovary measures up to 2.9 x 3.8 x 1.7 cm. Bilateral ovaries contains cysts. Trace free fluid seen within the cul-de-sac. US/Pelvic w/ Transvaginal IMPRESSION: The uterus appears somewhat heterogeneous. Correlate clinically for adenomyosis. A 2 cm fibroid is noted within the uterus. No evidence of ovarian torsion. Reading Location: [id number] CC: MARILUZ Keller; No Primary Care Physician ~ Application Spec: Signed [facility]04-07-2025 Evaluation note* Diagnosis Onset Date Resolution Status Admit Date Pelvic pain acute November 27 11:00am Encounter for routine gynecological examination noneactive November 27, 2024 11:00am [facility] Work Phone: 1(157) 175-588008-01-2024 NoteHNO ID: [id number] Author: JOHNATHAN TREJO APRN.WINE CONSULTANT Service: ? Author Type: Nurse Practitioner Type: Progress Notes Filed: 03/23/2024 17:30 Note Text: Subjective HPI Nontoxic-appearing female presents urgent care chief complaint left flank pain. Duration of symptom 1 day. Associated symptoms episodic left flank pain. Rates pain 3-4 out of 10. No current pain. Presents today concerned about possible kidney infection. 4 weeks ago was seen at [facility]. Diagnosed with pyelonephritis. Urine culture positive susceptible to antibiotics. During skin no calculi were noted. Presents today for evaluation. States this does not feel muscle skeletal. Pain is not reproducible. Has not had pain during today's visit. Denies any fever body aches chills nausea vomiting abdominal pain vaginal discharge vaginal itching. No rashes. Currently on menstrual cycle. Is not breast-feeding. Denies chance of . Past medical history prescription medications allergies reviewed. .Patient presents with: Flank Pain: Left side x 1 day PAST MEDICAL HISTORY 2006: Abnormal Pap smear of cervix 11/27: Acute pancreatitis Comment: idiopathic vs ? ocp (was on 1 yr)-no problem since No date: Allergic rhinitis due to other allergen No date: Anemia No date: Anxiety state, unspecified Comment: on 6 mo, w/ ocd traits No date: Benign neoplasm of skin, site unspecified Comment: rt shoulder, large melanocytic, but no change since childhood No date: Headache(784.0) Comment: see 11/27 notes No date: Lipoma Comment: mid back, 2 cm, not changed in yrs No date: Other and unspecified hyperlipidemia Comment: ldl 160+ No date: Surveillance of other previously prescribed contraceptive method Comment: depo: too much spotting- used for 6mo. Loestrin: ? pancreatitis. 11/12/2017: Trapezius muscle strain, right, initial encounter PAST SURGICAL HISTORY 2008: APPENDECTOMY 02/26: CHOLECYSTECTOMY Comment: chronic sweta without stones No date: DILATION AND CURETTAGE DXAND/THER NONOBSTETRIC Comment: Dilation AND curettage 01/24/15: ESSURE 2017: HYSTEROSCOPY,W/ENDOMETRIAL ABLATION Comment: Chayo No date: PAST SURGICAL HISTORY OF Comment: Tubes in ears 2017: SALPINGECTOMY Comment: removal of essures 1994: TONSILLECTOMY PRIMARY/SECONDARY Comment: Tonsillectomy ALLERGIES Patient has no known allergies. MEDICATIONS multivitamin tablet Take 1 tablet by mouth once daily. FAMILY HISTORY Problem Relation Age of Onset Hypertension Maternal Grandmother Stroke Maternal Grandfather Hypertension Paternal Grandmother Heart Paternal Grandfather Social History Tobacco Use Smoking status: Former Packs/day: 0.50 Years: 7.00 Additional pack years: 0.00 Total pack years: 3.50 Types: Cigarettes Quit date: 10/21/2009 Years since quittin.4 Smokeless tobacco: Never Substance Use Topics Alcohol use: Yes Comment: maybe once or twice a month, couple drinks,NOT WHILE Drug use: No BP 124/85 Pulse 65 Temp 36.9 ?C (98.4 ?F) Resp 18 Wt 86 kg (189 lb 9.5 oz) LMP 03/23/2024 SpO2 100% BMI 30.14 kg/m? Review of Systems Constitutional: Negative for chills, fever and malaise/fatigue. HENT: Negative for congestion, ear discharge, ear pain, sinus pain and sore throat. Eyes: Negative for blurred vision, pain, discharge and redness. Respiratory: Negative for cough, hemoptysis, sputum production, shortness of breath, wheezing and stridor. Cardiovascular: Negative for chest pain. Gastrointestinal: Negative for abdominal pain, diarrhea, nausea and vomiting. Genitourinary: Positive for flank pain. Negative for dysuria, frequency, hematuria and urgency. Musculoskeletal: Negative for myalgias. Skin: Negative for itching and rash. Neurological: Negative for dizziness and headaches. Objective Physical Exam Constitutional: General: She is not in acute distress. Appearance: She is not diaphoretic. HENT: Head: Normocephalic. Jaw: No trismus, tenderness, swelling or pain on movement. Eyes: Conjunctiva/sclera: Conjunctivae normal. Pupils: Pupils are equal, round, and reactive to light. Cardiovascular: Rate and Rhythm: Normal rate and regular rhythm. Heart sounds: Normal heart sounds. Pulmonary: Effort: Pulmonary effort is normal. No tachypnea, accessory muscle usage or respiratory distress. Breath sounds: Normal breath sounds. No stridor. No wheezing, rhonchi or rales. Abdominal: General: There is no distension. Palpations: Abdomen is soft. Tenderness: There is no abdominal tenderness. There is no right CVA tenderness, left CVA tenderness, guarding or rebound. Musculoskeletal: Cervical back: Normal range of motion and neck supple. No edema, erythema, rigidity or tenderness. No pain with movement. Normal range of motion. Lymphadenopathy: Cervical: No cervical adenopathy. Skin: General: Skin is warm and dry. Neurological: Mental Status: She (more content not included)...[facility] 03-23-2024 History of Present illness Narrative* Johnathan Trejo, VERA.[facility] - 03/23/2024 5:25 PM EDT Subjective HPI Nontoxic-appearing female presents urgent care chief complaint left flank pain. Duration of symptom1 day. Associated symptoms episodic left flank pain. Rates pain 3-4 out of 10. No current pain. Presents today concerned about possible kidney infection. 4 weeks ago was seen at [facility]. Diagnosedwith pyelonephritis. Urine culture positive susceptible to antibiotics. During skin no calculi werenoted. Presents today for evaluation. States this does not feel muscle skeletal. Pain is not reproducible. Has not had pain during today's visit. Denies any fever body aches chills nausea vomiting abdominal pain vaginal discharge vaginal itching. No rashes. Currently on menstrual cycle. Is not breast-feeding. Denies chance of . Past medical history prescription medications allergies reviewed. .Patient presents with: Flank Pain: Left side x 1 day PAST MEDICAL HISTORY 2005: Abnormal Pap smear of cervix 11/27: Acute pancreatitis Comment: idiopathic vs ? ocp (was on 1 yr)-no problem since No date: Allergic rhinitis due to other allergen No date: Anemia No date: Anxiety state, unspecified Comment: on 6 mo, w/ ocd traits No date: Benign neoplasm of skin, site unspecified Comment: rt shoulder, large melanocytic, but no change since childhood No date: Headache(784.0) Comment: see 11/27 notes No date: Lipoma Comment: mid back, 2 cm, not changed in yrs No date: Other and unspecified hyperlipidemia Comment: ldl 160+ No date: Surveillance of other previously prescribed contraceptive method Comment: depo: too much spotting- used for 6mo. Loestrin: ? pancreatitis. 11/12/2017: Trapezius muscle strain, right, initial encounter PAST SURGICAL HISTORY 2008: APPENDECTOMY 02/26: CHOLECYSTECTOMY Comment: chronic sweta without stones No date: DILATION & CURETTAGE DX&/THER NONOBSTETRIC Comment: Dilation & curettage 01/24/15: ESSURE 2017: HYSTEROSCOPY,W/ENDOMETRIAL ABLATION Comment: Chayo No date: PAST SURGICAL HISTORY OF Comment: Tubes in ears 2017: SALPINGECTOMY Comment: removal of essures 1994: TONSILLECTOMY PRIMARY/SECONDARY <AGE 12 Comment: Tonsillectomy ALLERGIES Patient has no known allergies. MEDICATIONS multivitamin tablet Take 1 tablet by mouth once daily. FAMILY HISTORY Problem Relation Age of Onset Hypertension Maternal Grandmother Stroke Maternal Grandfather Hypertension Paternal Grandmother Heart Paternal Grandfather Social History Tobacco Use Smoking status: Former Packs/day: 0.50 Years: 7.00 Additional pack years: 0.00 Total pack years: 3.50 Types: Cigarettes Quit date: 10/21/2009 Years since quittin.4 Smokeless tobacco: Never Substance Use Topics Alcohol use: Yes Comment: maybe once or twice a month, couple drinks,NOT WHILE Drug use: No BP 124/85 Pulse 65 Temp 36.9 C (98.4 F) Resp 18 Wt 86 kg (189 lb 9.5 oz) LMP 03/23/2024 SpO2 100% BMI 30.14 kg/m Review of Systems Constitutional: Negative for chills, fever and malaise/fatigue. HENT: Negative for congestion, ear discharge, ear pain, sinus pain and sore throat. Eyes: Negative for blurred vision, pain, discharge and redness. Respiratory: Negative for cough, hemoptysis, sputum production, shortness of breath, wheezing and stridor. Cardiovascular: Negative for chest pain. Gastrointestinal: Negative for abdominal pain, diarrhea, nausea and vomiting. Genitourinary: Positive for flank pain. Negative for dysuria, frequency, hematuria and urgency. Musculoskeletal: Negative for myalgias. Skin: Negative for itching and rash. Neurological: Negative for dizziness and headaches. Objective Physical Exam Constitutional: General: She is not in acute distress. Appearance: She is not diaphoretic. HENT: Head: Normocephalic. Jaw: No trismus, tenderness, swelling or pain on movement. Eyes: Conjunctiva/sclera: Conjunctivae normal. Pupils: Pupils are equal, round, and reactive to light. Cardiovascular: Rate and Rhythm: Normal rate and regular rhythm. Heart sounds: Normal heart sounds. Pulmonary: Effort: Pulmonary effort is normal. No tachypnea, accessory muscle usage or respiratory distress. Breath sounds: Normal breath sounds. No stridor. No wheezing, rhonchi or rales. Abdominal: General: There is no distension. Palpations: Abdomen is soft. Tenderness: There is no abdominal tenderness. There is no right CVA tenderness, left CVA tenderness, guarding or rebound. Musculoskeletal: Cervical back: Normal range of motion and neck supple. No edema, erythema, rigidity or tenderness. No pain with movement. Normal range of motion. Lymphadenopathy: Cervical: No cervical adenopathy. Skin: General: Skin is warm and dry. Neurological: Mental Status: She is alert and oriented to person, place, and time. ASSESSMENT/PLAN: 1. Flank pain - ICD9: 789.09, ICD10: R10.9 - UA DIP, URINE (POC) - URINE CULTURE No acute findings noted on urine dip other than trace amount of blood. No abnormal findings noted on assessment. Will culture urine. Treat according to culture results. Red flags for ER evaluation discussed. Patient was educated on supportive therapies. Patient will follow up with primary care provider as needed. Patient was instructed to immediately proceed to emergency room for any new, worsening, or symptoms lasting longer than anticipated. The patient's clinical presentation is otherwise unremarkable at this time. Based on exam and clinical finding, the patient is stable for discharge. Plan of care was discussed with patient. Patient verbalizes understanding and agrees to plan of care. This note was generated using Gridium software. It may contain errors in wording, punctuation, or spelling. Johnathan Trejo APRN.WINE CONSULTANT [facility] Discharge instructions Patient Education 2024 12:12:31 Pyelonephritis, Female (Adult) Kidney Infection (Adult Female) An infection in one or both kidneys is called pyelonephritis. It usually happens when bacteria (or rarely, viruses, fungi, or other disease-causing organisms) get into the kidney. The bacteria (or other disease-causing organisms) can enter the kidneys from the bladder or blood traveling from other parts of the body. A kidney infection can become serious. It can cause severe illness, scarring ofthe kidneys, or kidney failure if not treated properly. Common causes for this problem include: Not keeping the genital area clean and dry, which promotes the growth of bacteria Wiping back to front which drags bacteria from the rectum toward the urinary opening (urethra) Wearing tight pants or underwear (this lets moisture build up in the genital area, which helps bacteria grow) Holding urine in for long periods of time Dehydration Kidney infections can cause symptoms similar to a bladder infection. Symptoms include: Pain (or burning) when urinating Having to urinate more often than usual Blood in the urine (pink or red) Abdominal pain or discomfort, usually in the lower abdomen Pain in the side or back Pain above the pubic bone Fever or chills Vomiting Loss of appetite Treatment is oral antibiotics, or in more severe cases, intramuscular or IV antibiotics. These are started right away and may be changed once urine culture results determine the infecting organisms. Treatment helps prevent a more serious kidney infection. Medicines Medicines can help in the treatment of a bladder infection: Take antibiotics until they are used up, even if you feel better. It is important to finish them tomake sure the infection is gone. Unless another medicine was prescribed, you can use [id number] medicines for pain, fever, or discomfort. If you have chronic liver of kidney disease, talk with your healthcare provider before using these medicines. Also talk with your provider if you've ever had a stomach ulcer or gastrointestinal (GI) bleeding, or are taking blood thinners. Home care The following are general care guidelines: Stay home from work or school. Rest in bed until your fever breaks and you are feeling better, or as advised by your healthcare provider. Drink lots of fluid unless you must restrict fluids for other medical reasons. This will force the medicine into your urinary system and flush the bacteria out of your body. Ask your healthcare provider how much you should drink. Don't have sex until you have finished all of your medicine and your symptoms are gone. Don't have caffeine, alcohol, or spicy foods. These foods may irritate the kidneys and bladder. Don't take bubble baths. Sensitivity to the chemicals in bubble baths can irritate the urethra. Make sure you wipe from front to back after using the toilet. Wear loose cloths and cotton underwear. Prevention These self-care steps can help prevent future infections: Drink plenty of fluids to prevent dehydration and flush out the bladder. Do this unless you must restrict fluids for other health reasons, or your healthcare provider told you not to. Proper cleaning after going to the bathroom in important. Make sure you wipe from front to back after using the toilet. Urinate more often. Don't try to hold urine in for a long time. Don't wear tight-fitting pants and underwear. Improve your diet to prevent constipation. Eat more fruits, vegetables, and fiber. Eat less junk and fatty foods. Constipation can make a urinary tract infection more likely. Talk with your healthcare provider if you have trouble with bowel movements. Urinate right after intercourse to flush out the bladder. Follow-up care Follow up with your healthcare provider, or as advised. Additional testing may be needed to make sure the infection has cleared. Close follow-up and further testing is very important to find the cause and to prevent future infections. If a urine culture was done, you will be contacted if your treatment needs to be changed. If directed, you may call to find out the results. If you had an X-ray, CT scan, or other diagnostic test, you will be notified of any new findings that may affect your care. Call 911 Call 911 if any of the following occur: Trouble breathing Fainting or loss of consciousness Rapid or very slow heart rate Weakness, dizziness, or fainting Difficulty arousing or confusion When to seek medical advice Call your healthcare provider right away if any of these occur: Fever 100.4 F (38 C) or higher, or as directed by your healthcare provider Not feeling better within 1 to 2 days after starting antibiotics Any symptom that continues after 3 days of treatment Increasing pain in the stomach, back, side, or groin area Repeated vomiting Not able to take prescribed medicine due to nausea or another reason Bloody, dark-colored, or foul smelling urine Trouble urinating or decreased urine output No urine for 8 hours, no tears when crying, sunken eyes, or dry mouth [id number] [employer]. [address] [place] [address] 11818. All rights reserved. This information is not intended as a substitute for professional medical care. Always follow yourhealthcare professional's instructions. Follow Up Care 2024 10:50:03 With:Follow up with primary care provider Address:Unknown When:3-5 days Comments:Schedule appointment for follow-up.Push fluids.Continue Tylenol and Advil for pain and fever as needed.Use Hudson as prescribed for severe pain and Zofran for nausea and vomiting as needed.Finish antibiotic (cephalexin) as previously prescribed.Return to the ED if symptoms worsen. [facility] 06-26-2024 Note Discharge Instructions Thank you for allowing [facility] to assist you with your healthcare needs. The following is importantdischarge information regarding your hospital visit. Diagnosis from Today's Visit Pyelonephritis What to Do Next Instructions from Your Care Team No qualifying data available. Post Acute Orders No qualifying data available. You Need to Schedule the Following Appointments Follow Up with Follow up with primary care provider When:Within 3-5 days Additional Information: Schedule appointment for follow-up. Push fluids. Continue Tylenol and Advil for pain and fever as needed. Use Hudson as prescribed for severe pain and Zofran for nausea and vomiting as needed. Finish antibiotic (cephalexin) as previously prescribed. Return to the ED if symptoms worsen. Allergies [facility] Medications Please ask your primary doctor or pharmacist before taking any other medication not listed, including over the counter drugs, herbal medications, vitamins and or supplements as they may interact withyour home medications. What How Much When Why Instructions Last Dose New acetaminophen-hydrocodone (Hudson 325- 5 mg oral tablet) 1 tab(s) by mouth Every 6 hours as needed for As needed for severe pain Pyelonephritis Duration: 3 Days Printed Prescription Changed ondansetron (Zofran 4 mg oral tablet) 1 tab(s) by mouth Every 6 hours as needed for As needed for nausea and vomiting Duration: 3 Days Printed Prescription Changed ondansetron (Zofran ODT use ondansetron oral tablet, disintegrating ) 8 Milligram by mouth Two (2) times a day Duration: 3 Days As needed for nausea vomiting Unchanged cephalexin (cephalexin 500 mg oral capsule) 1 cap by mouth Every 6 hours Duration: 10 Days Unchanged herbal/ nutritional product (Probiotic) 1 cap by mouth Every day Unchanged ibuprofen (ibuprofen 600 mg oral tablet) 1 tab(s) by mouth Every 6 hours Unchanged magnesium gluconate (magnesium gluconate 500 mg oral tablet) 2 tab(s) by mouth Daily at bedtime Unchanged naproxen (Anaprox-DS 550 mg oral tablet) 1 tab(s) by mouth Two (2) times a day Duration: 10 Days Please take this list to your next doctor s visit. Bring all medications you take, including over the counter medications, herbals and other supplements with you to your doctor s visit. Patients and families are reminded to discard old lists and to update any records with all medication providers or retail pharmacies. Medication Leaflets acetaminophen and hydrocodone (a SEET a [place] and dayami BORGES done) Verdrocet What is the most important information I should know about acetaminophen and hydrocodone? MISUSE OF OPIOID MEDICINE CAN CAUSE ADDICTION, OVERDOSE, OR . Keep the medication in a place where others cannot get to it. Taking opioid medicine during may cause life-threatening withdrawal symptoms in the . Fatal side effects can occur if you use opioid medicine with alcohol, or with other drugs that cause drowsiness or slow your breathing. Stop taking this medicine and call your doctor right away if you have skin redness or a rash that spreads and causes blistering and peeling. What is acetaminophen and hydrocodone? Acetaminophen and hydrocodone is a combination medicine used to relieve moderate to severe pain. Acetaminophen and hydrocodone contains an opioid medicine, and may be habit-forming. Acetaminophen and hydrocodone may also be used for purposes not listed in this medication guide. What should I discuss with my healthcare provider before taking acetaminophen and hydrocodone? You should not use this medicine if you are allergic to acetaminophen or hydrocodone, or if you have: severe asthma or breathing problems; or a blockage in your stomach or intestines. Tell your doctor if you have ever had: breathing problems, sleep apnea (breathing stops during sleep); liver disease; a drug or alcohol addiction; kidney disease; a head injury or seizures; urination problems; or problems with your thyroid, pancreas, or gallbladder. If you use opioid medicine while you are , your baby could become dependent on the drug. This can cause life-threatening withdrawal symptoms in the baby after it is born. Babies born dependent on opioids may need medical treatment for several weeks. Ask a doctor before using opioid medicine if you are . Tell your doctor if you notice severe drowsiness or slow breathing in the nursing baby. How should I take acetaminophen and hydrocodone? Follow all directions on your prescription label. Never take this medicine in larger amounts, or for longer than prescribed. An overdose can damage your liver or cause . Tell your doctor if you feel an increased urge to use more of this medicine. Never share this medicine with another person, especially someone with a history of drug abuse or addiction. MISUSE CAN CAUSE ADDICTION, OVERDOSE, OR . Keep the medicine in a place where others cannot get to it. Selling or giving away this medicine is against the law. Measure liquid medicine carefully. Use the dosing syringe provided, or use a medicine dose-measuring device (not a kitchen spoon). If you need surgery or medical tests, tell the doctor ahead of time that you are using this medicine. You should not stop using this medicine suddenly. Follow your doctor's instructions about tapering your dose. Store at room temperature away from moisture and heat. Keep track of your medicine. You should be aware if anyone is using it improperly or without a prescription. Do not keep leftover opioid medication. Just one dose can cause in someone using this medicine accidentally or improperly. Ask your pharmacist where to locate a drug take-back disposal program.If there is no take-back program, flush the unused medicine down the toilet. What happens if I miss a dose? Since this medicine is used for pain, you are not likely to miss a dose. Skip any missed dose if itis almost time for your next dose. Do not use two doses at one time. What happens if I overdose? Seek emergency medical attention or call the Poison Help line at . An overdose of this medicine can be fatal, especially in a child or other person using the medicine without a prescription. Overdose symptoms may include nausea, vomiting, sweating, severe drowsiness, pinpoint pupils, slow breathing, or no breathing. Your doctor may recommend you get naloxone (a medicine to reverse an opioid overdose) and keep it with you at all times. A person caring for you can give the naloxone if you stop breathing or don't wake up. Your caregiver must still get emergency medical help and may need to perform CPR (cardiopulmonary resuscitation) on you while waiting for help to arrive. Anyone can buy naloxone from a pharmacy or local health department. Make sure any person caring foryou knows where you keep naloxone and how to use it. What should I avoid while taking acetaminophen and hydrocodone? Avoid driving or operating machinery until you know how this medicine will affect you. Dizziness ordrowsiness can cause falls, accidents, or severe injuries. Do not drink alcohol. Dangerous side effects or could occur. Ask a doctor or pharmacist before using any other medicine that may contain acetaminophen (sometimes abbreviated as APAP). Taking certain medications together can lead to a fatal overdose. What are the possible side effects of acetaminophen and hydrocodone? Get emergency medical help if you have signs of an allergic reaction: hives; difficulty breathing; swelling of your face, lips, tongue, or throat. Opioid medicine can slow or stop your breathing, and may occur. A person caring for you should give naloxone and/or seek emergency medical attention if you have slow breathing with long pauses,blue colored lips, or if you are hard to wake up. In rare cases, acetaminophen may cause a severe skin reaction that can be fatal. This could occur even if you have taken acetaminophen in the past and had no reaction. Stop taking this medicine and call your doctor right away if you have skin redness or a rash that spreads and causes blistering andpeeling. Call your doctor at once if you have: noisy breathing, sighing, shallow breathing, breathing that stops; a light-headed feeling, like you might pass out; liver problems--nausea, upper stomach pain, tiredness, loss of appetite, dark urine, slim-colored stools, jaundice (yellowing of the skin or eyes); low cortisol levels-- nausea, vomiting, loss of appetite, dizziness, worsening tiredness or weakness; o high levels of serotonin in the body--agitation, hallucinations, fever, sweating, shivering, fast heart rate, muscle stiffness, twitching, loss of coordination, nausea, vomiting, diarrhea. Serious breathing problems may be more likely in older adults and in those who are debilitated or have wasting syndrome or chronic breathing disorders. Common side effects include: dizziness, drowsiness, feeling tired; nausea, vomiting, stomach pain; constipation; or headache. This is not a complete list of side effects and others may occur. Call your doctor for medical advice about side effects. You may report side effects to FDA at 9-703-DZQ-9155. What other drugs will affect acetaminophen and hydrocodone? You may have breathing problems or withdrawal symptoms if you start or stop taking certain other medicines. Tell your doctor if you also use an antibiotic, antifungal medication, heart or blood pressure medication, seizure medication, or medicine to treat HIV or hepatitis C. Opioid medication can interact with many other drugs and cause dangerous side effects or . Be sure your doctor knows if you also use: cold or allergy medicines, bronchodilator asthma/COPD medication, or a diuretic ('water pill'); medicines for motion sickness, irritable bowel syndrome, or overactive bladder; other opioids--opioid pain medicine or prescription cough medicine; a sedative like Valium--diazepam, alprazolam, lorazepam, Xanax, Klonopin, Versed, and others; drugs that make you sleepy or slow your breathing--a sleeping pill, muscle relaxer, medicine to treat mood disorders or mental illness; drugs that affect serotonin levels in your body--a stimulant, or medicine for depression, Parkinson's disease, migraine headaches, serious infections, or nausea and vomiting. This list is not complete. Other drugs may affect acetaminophen and hydrocodone, including prescription and [id number]-cdjwzsl medicines, vitamins, and herbal products. Not all possible interactions are listed here. Where can I get more information? Your doctor or pharmacist can provide more information about acetaminophen and hydrocodone. Remember, keep this and all other medicines out of the reach of children, never share your medicines with others, and use this medication only for the indication prescribed. Every effort has been made to ensure that the information provided by [employer]') is accurate, up-to-date, and complete, but no guarantee is made to that effect. Drug information contained herein may be time sensitive. [employer] information has been compiled for use by healthcare practitioners and consumers in the [place] and therefore [employer] does not warrant that uses outside of the [place] are appropriate, unless specifically indicated otherwise. [employer] drug information does not endorse drugs, diagnose patients or recommend therapy. [employer] drug information isan informational resource designed to assist licensed healthcare practitioners in caring for their p atients and/or to serve consumers viewing this service as a supplement to, and not a substitute for, the expertise, skill, knowledge and judgment of healthcare practitioners. The absence of a warningfor a given drug or drug combination in no way should be construed to indicate that the drug or drug combination is safe, effective or appropriate for any given patient. [employer] does not assume any responsibility for any aspect of healthcare administered with the aid of information [employer] provides. The information contained herein is not intended to cover all possible uses, directions, precautions, warnings, drug interactions, allergic reactions, or adverse effects. If you have questions about the drugs you are taking, check with your doctor, nurse or pharmacist. Copyright 7924-1046 [employer] Version: 19.02. Revision Date: 11/30/2023. ondansetron (oral) (on KRISHNA se estrella) What is the most important information I should know about ondansetron? You should not use ondansetron if you are also using apomorphine (Apokyn). What is ondansetron? Ondansetron blocks the actions of chemicals in the body that can trigger nausea and vomiting. Ondansetron is used to prevent nausea and vomiting that may be caused by surgery, cancer chemotherapy, or radiation treatment. Ondansetron may be used for purposes not listed in this medication guide. What should I discuss with my health care provider before taking ondansetron? You should not use ondansetron if: you are also using apomorphine (Apokyn); or you are allergic to ondansetron or similar medicines (dolasetron, granisetron, palonosetron). To make sure ondansetron is safe for you, tell your doctor if you have: liver disease; an electrolyte imbalance (such as low levels of potassium or magnesium in your blood); congestive heart failure, slow heartbeats; a personal or family history of long QT syndrome; or a blockage in your digestive tract (stomach or intestines). Ondansetron is not expected to harm an unborn baby. Tell your doctor if you are . It is not known whether ondansetron passes into breast milk or if it could harm a nursing baby. Tell your doctor if you are breast-feeding a baby. Ondansetron is not approved for use by anyone younger than 4 years old. Ondansetron orally disintegrating tablets may contain phenylalanine. Tell your doctor if you have phenylketonuria (PKU). How should I take ondansetron? Follow all directions on your prescription label. Do not take this medicine in larger or smaller amounts or for longer than recommended. Ondansetron can be taken with or without food. The first dose of ondansetron is usually taken before the start of your surgery, chemotherapy, or radiation treatment. Follow your doctor's dosing instructions very carefully. Take the ondansetron regular tablet with a full glass of water. To take the orally disintegrating tablet (Zofran ODT): Keep the tablet in its blister pack until you are ready to take it. Open the package and peel back the foil. Do not push a tablet through the foil or you may damage the tablet. Use dry hands to remove the tablet and place it in your mouth. Do not swallow the tablet whole. Allow it to dissolve in your mouth without chewing. Swallow several times as the tablet dissolves. To use ondansetron oral soluble film (strip) (Zuplenz): Keep the strip in the foil pouch until you are ready to use the medicine. Using dry hands, remove the strip and place it on your tongue. It will begin to dissolve right away. Do not swallow the strip whole. Allow it to dissolve in your mouth without chewing. Swallow several times after the strip dissolves. If desired, you may drink liquid to help swallow the dissolved strip. Wash your hands after using Zuplenz. Measure liquid medicine with the dosing syringe provided, or with a special dose-measuring spoon ormedicine cup. If you do not have a dose-measuring device, ask your pharmacist for one. Store at room temperature away from moisture, heat, and light. Store liquid medicine in an upright position. What happens if I miss a dose? Take the missed dose as soon as you remember. Skip the missed dose if it is almost time for your next scheduled dose. Do not take extra medicine to make up the missed dose. What happens if I overdose? Seek emergency medical attention or call the Poison Help line at . Overdose symptoms may include sudden loss of vision, severe constipation, feeling light-headed, or fainting. What should I avoid while taking ondansetron? Ondansetron may impair your thinking or reactions. Be careful if you drive or do anything that requires you to be alert. What are the possible side effects of ondansetron? Get emergency medical help if you have signs of an allergic reaction: rash, hives; fever, chills, difficult breathing; swelling of your face, lips, tongue, or throat. Call your doctor at once if you have: severe constipation, stomach pain, or bloating; headache with chest pain and severe dizziness, fainting, fast or pounding heartbeats; fast or pounding heartbeats; jaundice (yellowing of the skin or eyes); blurred vision or temporary vision loss (lasting from only a few minutes to several hours); high levels of serotonin in the body--agitation, hallucinations, fever, fast heart rate, overactivereflexes, nausea, vomiting, diarrhea, loss of coordination, fainting. Common side effects may include: diarrhea or constipation; headache; drowsiness; or tired feeling. This is not a complete list of side effects and others may occur. Call your doctor for medical advice about side effects. You may report side effects to FDA at 6-207-ZNU-9812. What other drugs will affect ondansetron? Ondansetron can cause a serious heart problem, especially if you use certain medicines at the same time, including antibiotics, antidepressants, heart rhythm medicine, antipsychotic medicines, and medicines to treat cancer, malaria, HIV or AIDS. Tell your doctor about all medicines you use, and those you start or stop using during your treatment with ondansetron. Taking ondansetron while you are using certain other medicines can cause high levels of serotonin to build up in your body, a condition called 'serotonin syndrome,' which can be fatal. Tell your doctor if you also use: medicine to treat depression; medicine to treat a psychiatric disorder; a narcotic (opioid) medication; or medicine to prevent nausea and vomiting. This list is not complete and many other drugs can interact with ondansetron. This includes prescription and [id number]-[id number] medicines, vitamins, and herbal products. Give a list of all your medicines to any healthcare provider who treats you. Where can I get more information? Your pharmacist can provide more information about ondansetron. Remember, keep this and all other medicines out of the reach of children, never share your medicines with others, and use this medication only for the indication prescribed. Every effort has been made to ensure that the information provided by [employer] is accurate, up-to-date, and complete, but no guarantee is made to that effect. Drug information contained herein may be time sensitive. [employer] information has been compiled for use by healthcare practitioners and consumers in the [place] and therefore [employer] does not warrant that uses outside of the [place] are appropriate, unless specifically indicated otherwise. [employer] information does not endorse drugs, diagnose patients or recommend therapy. [employer] drug information isan informational resource designed to assist licensed healthcare practitioners in caring for their p atients and/or to serve consumers viewing this service as a supplement to, and not a substitute for, the expertise, skill, knowledge and judgment of healthcare practitioners. The absence of a warningfor a given drug or drug combination in no way should be construed to indicate that the drug or drug combination is safe, effective or appropriate for any given patient. [employer] does not assume any responsibility for any aspect of healthcare administered with the aid of information [employer] provides. The information contained herein is not intended to cover all possible uses, directions, precautions, warnings, drug interactions, allergic reactions, or adverse effects. If you have questions about the drugs you are taking, check with your doctor, nurse or pharmacist. Copyright 7212-8990 [employer] Version: 16.. Revision Date: 03/25/2023. Education Materials Kidney Infection (Adult Female) An infection in one or both kidneys is called pyelonephritis. It usually happens when bacteria (or rarely, viruses, fungi, or other disease-causing organisms) get into the kidney. The bacteria (or other disease-causing organisms) can enter the kidneys from the bladder or blood traveling from other parts of the body. A kidney infection can become serious. It can cause severe illness, scarring ofthe kidneys, or kidney failure if not treated properly. Common causes for this problem include: Not keeping the genital area clean and dry, which promotes the growth of bacteria Wiping back to front which drags bacteria from the rectum toward the urinary opening (urethra) Wearing tight pants or underwear (this lets moisture build up in the genital area, which helps bacteria grow) Holding urine in for long periods of time Dehydration Kidney infections can cause symptoms similar to a bladder infection. Symptoms include: Pain (or burning) when urinating Having to urinate more often than usual Blood in the urine (pink or red) Abdominal pain or discomfort, usually in the lower abdomen Pain in the side or back Pain above the pubic bone Fever or chills Vomiting Loss of appetite Treatment is oral antibiotics, or in more severe cases, intramuscular or IV antibiotics. These are started right away and may be changed once urine culture results determine the infecting organisms. Treatment helps prevent a more serious kidney infection. Medicines Medicines can help in the treatment of a bladder infection: Take antibiotics until they are used up, even if you feel better. It is important to finish them tomake sure the infection is gone. Unless another medicine was prescribed, you can use [id number] medicines for pain, fever, or discomfort. If you have chronic liver of kidney disease, talk with your healthcare provider before using these medicines. Also talk with your provider if you've ever had a stomach ulcer or gastrointestinal (GI) bleeding, or are taking blood thinners. Home care The following are general care guidelines: Stay home from work or school. Rest in bed until your fever breaks and you are feeling better, or as advised by your healthcare provider. Drink lots of fluid unless you must restrict fluids for other medical reasons. This will force the medicine into your urinary system and flush the bacteria out of your body. Ask your healthcare provider how much you should drink. Don't have sex until you have finished all of your medicine and your symptoms are gone. Don't have caffeine, alcohol, or spicy foods. These foods may irritate the kidneys and bladder. Don't take bubble baths. Sensitivity to the chemicals in bubble baths can irritate the urethra. Make sure you wipe from front to back after using the toilet. Wear loose cloths and cotton underwear. Prevention These self-care steps can help prevent future infections: Drink plenty of fluids to prevent dehydration and flush out the bladder. Do this unless you must restrict fluids for other health reasons, or your healthcare provider told you not to. Proper cleaning after going to the bathroom in important. Make sure you wipe from front to back after using the toilet. Urinate more often. Don't try to hold urine in for a long time. Don't wear tight-fitting pants and underwear. Improve your diet to prevent constipation. Eat more fruits, vegetables, and fiber. Eat less junk and fatty foods. Constipation can make a urinary tract infection more likely. Talk with your healthcare provider if you have trouble with bowel movements. Urinate right after intercourse to flush out the bladder. Follow-up care Follow up with your healthcare provider, or as advised. Additional testing may be needed to make sure the infection has cleared. Close follow-up and further testing is very important to find the cause and to prevent future infections. If a urine culture was done, you will be contacted if your treatment needs to be changed. If directed, you may call to find out the results. If you had an X-ray, CT scan, or other diagnostic test, you will be notified of any new findings that may affect your care. Call 911 Call 911 if any of the following occur: Trouble breathing Fainting or loss of consciousness Rapid or very slow heart rate Weakness, dizziness, or fainting Difficulty arousing or confusion When to seek medical advice Call your healthcare provider right away if any of these occur: Fever 100.4 F (38 C) or higher, or as directed by your healthcare provider Not feeling better within 1 to 2 days after starting antibiotics Any symptom that continues after 3 days of treatment Increasing pain in the stomach, back, side, or groin area Repeated vomiting Not able to take prescribed medicine due to nausea or another reason Bloody, dark-colored, or foul smelling urine Trouble urinating or decreased urine output No urine for 8 hours, no tears when crying, sunken eyes, or dry mouth [id number] [employer]. [address] [place] [address]. All rights reserved. This information is not intended as a substitute for professional medical care. Always follow yourhealthcare professional's instructions. Additional Information VACCINATE! IT SAVES LIVES! Members of the community who have not yet received the COVID-19 vaccine and would like to receive it can visit one of [facility] vaccine clinics. There are many vaccine clinic locations within the [facility]. For locations and available times, please visit [email or web address].[email or web address]/. It is important to note that some COVID mobile vaccine clinics are held outdoors and may be canceled in rainy or stormy conditions. To learn more about pediatric vaccinations (ages 5-11), we invite you to visit the [facility] webpage. [email or web address]/[email or web address] learn more about the COVID-19 vaccine, we invite you to visit the CDC website for a list of frequently asked questions. https://www.cdc.gov/coronavirus/2019-ncov/vaccines/faq.html [facility] Patient Portal Access Instructions: Stay connected with your healthcare team and access your personal medical information anytime with the [facility] Patient Portal. If you would like a full copy of your medical records please contact the [facility] Medical Records Department Wednesday through Wednesday between 8a.m. and 4:30p.m. Please follow the directions below to access the portal: 1.Access the email account you provided upon registration to the hospital.2.Look for an invitation email from [facility].3.Open the email and access the invitation link: Accept Invitation to [facility]4.Fill in the required leal to create your account. Sign into [email or web address] with your username and password that you created in the above steps to stay up to date. You can then view a summary of results, a summary of your visits, and the ability to download your summaries to your computer or send the information securely to a physician. Remember that your healthcare information is confidential, so carefully consider who you will allow to register on the [facility] Patient Portal for access to your information. You can also access the [facility] Patient Portal on the [employer]. Simply click on Health Records under [employer] and then click on the [employer] logo. HOW TO SAFELY DISPOSE OF PRESCRIPTION MEDICATIONS Please use one of the following methods to safely dispose of your unused medications. 1.Use a drug disposal kit: the drug disposal pouch allows you to safely discard your old and unuseddrugs. Ask your nurse to give you one when you are discharged.2.Visit a local take-back location: Many local pharmacies and police departments have programs that collect old and unwanted prescriptiondrugs. Call your local pharmacy or go to http://[employer]z.Joint Loyalty/1N5Io7k to find one close to you.3.Make use of household items: Use cat litter or old coffee grounds to dispose medications if other options arenot available. Mix your drugs with these household products, seal them in an airtight container andthrow it into the garbage. Call [facility]: [phone] to be sure your drugs can be disposed of in this way. Some medicines may require a different approach.4.Never flush your medications down the toilet. IF YOU HAVE BEEN PRESCRIBED AN OPIOIDS FOR PAIN If you have been prescribed an opioid (such as hydrocodone, oxycodone or morphine), it is critical to understand the possible side effects and risks of opioid pain medications. Even when taken as directed, opioids can have several side effects including: Tolerance, meaning you might need to take more of a medication for the same pain relief. Nausea, vomiting and/or constipation. Sleepiness, dizziness, dry mouth, confusion, depression or itching. Physical dependence, meaning you have withdrawal symptoms when a medication is stopped ? this can develop within a few days. KNOW YOUR RESPONSIBILITIES It is important to know exactly how much and how often to take the opioid pain medications you are prescribed. Never take opioids in higher amounts or more often than prescribed. Do not combine opioids with alcohol or other drugs that cause drowsiness, such as benzodiazepines, also known as benzos,including diazepam and alprazolam, muscle relaxants or sleep aids. Never sell or share prescriptionopioids. This is illegal. Store opioids in a secure place and out of reach of others (including children, family, friends and visitors). The last page(s) of this document has been signed and retained as a CHART COPY Signatures Patient Education Materials Pyelonephritis, Female (Adult) Medication Leaflets acetaminophen and hydrocodone, ondansetron (oral) My discharge plan and instructions have been reviewed and explained to me and I,VIC PAZ understand my current condition and have read and understand these discharge instructions. I have received a written copy of the plan/instructions. If I have questions, I am aware that I should contact my doctor. 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 MICRO - Microbiology PROCEDURE: Urine Culture [O1 *1] SOURCE: Urine BODY SITE: COLLECTED DATE/TIME: 02/12/2024 16:22 EDT RECEIVED DATE/TIME: 02/13/2024 13:08 EDT START DATE/TIME: 02/13/2024 13:08 EDT FREE TEXT SOURCE: FINAL REPORTS Final Report [] Verified Date/Time/Personnel: 2024 07:32 EDT >100,000 cfu/ml Escherichia coli >100,000 cfu/ml Escherichia coli #2 PRELIMINARY REPORTS Preliminary Report [] Verified Date/Time/Personnel: 02/15/2024 08:32 EDT >100,000 cfu/ml Escherichia coli DANIEL to follow >100,000 cfu/ml Escherichia coli #2 DANIEL to follow Preliminary Report [] Verified Date/Time/Personnel: 02/14/2024 11:16 EDT Culture results pending. SUSCEPTIBILITY RESULTS Escherichia coli Antibiotic DANIEL Dilut DANIEL Inter Ampicillin <=8 Susceptible Ampicillin/ <=4/2 Susceptible Sulbactam Aztreonam <=4 Susceptible Cefazolin <=2 Susceptible Ciprofloxacin <=0.25 Susceptible Ertapenem <=0.5 Susceptible Gentamicin <=2 Susceptible ID Panel Not Not Applicable Applicable Imipenem <=1 Susceptible Levofloxacin <=0.5 Susceptible Meropenem <=1 Susceptible Minocycline <=4 Susceptible Nitrofurantoin <=32 Susceptible Trimethoprim/ <=0.5/9.5 Susceptible Sulfa Escherichia coli #2 Antibiotic DANIEL Dilut DANIEL Inter Ampicillin <=8 Susceptible Ampicillin/ <=4/2 Susceptible Sulbactam Aztreonam <=4 Susceptible Cefazolin <=2 Susceptible Ciprofloxacin <=0.25 Susceptible Ertapenem <=0.5 Susceptible Gentamicin <=2 Susceptible ID Panel Not Not Applicable Applicable Imipenem <=1 Susceptible Levofloxacin <=0.5 Susceptible Meropenem <=1 Susceptible Minocycline <=4 Susceptible Nitrofurantoin <=32 Susceptible MICRO - Microbiology SUSCEPTIBILITY RESULTS Escherichia coli #2 Antibiotic DANIEL Dilut DANIEL Inter Trimethoprim/ <=0.5/9.5 Susceptible Sulfa Order Comments O1: Urine Culture Added by Discern Performing Locations *1: This test was performed at: [facility], [address] [place] [address], [facility] , [facility] ([place])02-14-2024 Instructions* Patient Instructions* Carol Curiel APRN.CNP - 02/14/2024 1:43 PM EDT With: KIMBERLY LUNA Address: [address] [facility] [address] [facility] [place] [address] Business (1) documented in this encounterOhiohealth [facility]06-[facility]24 NoteHNO ID: [id number] Author: CAROL CURIEL APRN.CNP Service: ? Author Type: Nurse Practitioner Type: Progress Notes Filed: 02/14/2024 13:59 Note Text: 02/14/2024 Patient presents with: ED Follow-up: Seen Sat 02/11 at [facility], diagnosed with kidney infection SUBJECTIVE: This is a 38 year old that is here today for Above Complaints. HOSPITAL/ER FOLLOW UP: Reason for visit: left flank pain Which facility: [facility] Date of visit: 02/12/2024 Diagnosis: pyelonephritis Testing done: CT ABD/PEL Treatment given: Keflex Taking Keflex as prescribed. Reports doesn't feel a whole lot better. Fever with chills last night of 100.9. Alternating Motrin and Tylenol with mild little relief. Still with left flank pain 3/10 and wraps around to her left abdomen. Appetite is decreased. Urinating without difficulty. Denies nausea, vomiting, or dysuria. Currently on her menses so does have some blood mixed with her urine No ER records to review at appointment PAST MEDICAL HISTORY Diagnosis Date Abnormal Pap smear of cervix 2005 Acute pancreatitis 11/27 idiopathic vs ? 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 Loestrin: ? pancreatitis. Trapezius muscle strain, right, initial encounter 11/12/2017 ALLERGIES Patient has no known allergies. MEDICATIONS Current Outpatient Medications Medication Sig multivitamin tablet Take 1 tablet by mouth once daily. No current facility-administered medications for this visit. Medications and allergies reviewed by this provider. SOCIAL HISTORY Social History Tobacco Use Smoking status: Former Packs/day: 0.50 Years: 7.00 Additional pack years: 0.00 Total pack years: 3.50 Types: Cigarettes Quit date: 10/21/2009 Years since quittin.3 Smokeless tobacco: Never Substance Use Topics Alcohol use: Yes Comment: maybe once or twice a month, couple drinks,NOT WHILE Drug use: No REVIEW OF SYSTEMS All other reviewed and negative other than HPI. OBJECTIVE: BP 104/70 Pulse 71 Temp 36.4 ?C (97.6 ?F) Resp 16 Wt 87.5 kg (192 lb 12.8 oz) LMP 11/06/2016 SpO2 97% BMI 30.65 kg/m? . Vital signs reviewed by this provider. APPEARANCE Well appearing, alert, in no acute distress, well-hydrated, well nourished. EYES conjunctiva and sclera normal. HEART RRR with normal S1 and S2, no murmurs, no gallops, no JVD appreciated LUNG clear to auscultation. No wheezes, rhonchi or rales ABDOMEN bowel sounds normoactive, no bruits, soft, non-tender, non-distended BACK: Patient reports CVA tenderness with palpation SKIN Skin color, texture, turgor normal, no suspicious rashes or lesions to exposed skin Hepatitis B Vaccine(1 of 3 - 19+ 3-dose series) Never done HPV Vaccine(2 - 3-dose series) due on 06/04/2007 Covid-19 Vaccine( - season) Never done Behavioral Health Screening Never done Cervical Cancer Screening due on 10/29/2023 Influenza Vaccine(Season Ended) due on 04/23/2024 DTaP,Tdap,Td Vaccine(4 - Td or Tdap) due on 08/17/2024 Hepatitis C Screening Completed HIV Screening Completed ASSESSMENT/PLAN: 1. Acute pyelonephritis - ICD9: 590.10, ICD10: N10 - reviewed ER discharge and it says to follow-up with Dr. Luna at [facility] for culture results which she has not - discussed with patient she can reach out to them to see if culture results are back which would let them know if she is on appropriate antibiotic- if she is unable to get a hold of them I recommend she return to ER for re evaluation. Patient agreeable with plan Carol Curiel APRN.WINE CONSULTANT Prescription instructions reviewed with patient as applicable. Patient advised if symptoms do not improve or if symptoms worsen sooner, to contact their primary care physician. Potential red flag symptoms discussed with the patient. Reviewed appropriate action plan to take if red flag symptoms occur. Patient agreeable to treatment plan. I spent a total of 25 minutes on the date of the service which included preparing to see the patient, [id number] patient care, completing clinical documentation, obtaining and/or reviewing separately obtained history, performing a medically appropriate examination, and counseling and educating the patient/family/caregiver.[facility]06-24-2024 History of Present illness Narrative* Carol Curiel APRN.CNP - 02/14/2024 1:24 PM EDT 02/14/2024 Patient presents with: ED Follow-up: Seen Sat 02/11 at [facility], diagnosed with kidney infection SUBJECTIVE: This is a 38 year old that is here today for Above Complaints. HOSPITAL/ER FOLLOW UP: Reason for visit: left flank pain Which facility: [facility] Date of visit: 02/12/2024 Diagnosis: pyelonephritis Testing done: CT ABD/PEL Treatment given: Keflex Taking Keflex as prescribed. Reports doesn't feel a whole lot better. Fever with chills last night of 100.9. Alternating Motrin and Tylenol with mild little relief. Still with left flank pain 3/10 and wraps around to her left abdomen. Appetite is decreased. Urinating without difficulty. Denies nausea, vomiting, or dysuria. Currently on her menses so does have some blood mixed with her urine No ER records to review at appointment PAST MEDICAL HISTORY Diagnosis Date Abnormal Pap smear of cervix 2005 Acute pancreatitis 11/27 idiopathic vs ? 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 Loestrin: ? pancreatitis. Trapezius muscle strain, right, initial encounter 11/12/2017 ALLERGIES Patient has no known allergies. MEDICATIONS Current Outpatient Medications Medication Sig multivitamin tablet Take 1 tablet by mouth once daily. No current facility-administered medications for this visit. Medications and allergies reviewed by this provider. SOCIAL HISTORY Social History Tobacco Use Smoking status: Former Packs/day: 0.50 Years: 7.00 Additional pack years: 0.00 Total pack years: 3.50 Types: Cigarettes Quit date: 10/21/2009 Years since quittin.3 Smokeless tobacco: Never Substance Use Topics Alcohol use: Yes Comment: maybe once or twice a month, couple drinks,NOT WHILE Drug use: No REVIEW OF SYSTEMS All other reviewed and negative other than HPI. OBJECTIVE: BP 104/70 Pulse 71 Temp 36.4 C (97.6 F) Resp 16 Wt 87.5 kg (192 lb 12.8 oz) LMP 11/06/2016 SpO2 97% BMI 30.65 kg/m . Vital signs reviewed by this provider. APPEARANCE Well appearing, alert, in no acute distress, well-hydrated, well nourished. EYES conjunctiva and sclera normal. HEART RRR with normal S1 and S2, no murmurs, no gallops, no JVD appreciated LUNG clear to auscultation. No wheezes, rhonchi or rales ABDOMEN bowel sounds normoactive, no bruits, soft, non-tender, non-distended BACK: Patient reports CVA tenderness with palpation SKIN Skin color, texture, turgor normal, no suspicious rashes or lesions to exposed skin Hepatitis B Vaccine(1 of 3 - 19+ 3-dose series) Never done HPV Vaccine(2 - 3-dose series) due on 06/04/2007 Covid-19 Vaccine( - season) Never done Behavioral Health Screening Never done Cervical Cancer Screening due on 10/29/2023 Influenza Vaccine(Season Ended) due on 04/23/2024 DTaP,Tdap,Td Vaccine(4 - Td or Tdap) due on 08/17/2024 Hepatitis C Screening Completed HIV Screening Completed ASSESSMENT/PLAN: 1. Acute pyelonephritis - ICD9: 590.10, ICD10: N10 - reviewed ER discharge and it says to follow-up with Dr. Luna at [facility] for culture results which she has not - discussed with patient she can reach out to them to see if culture results are back which would let them know if she is on appropriate antibiotic- if she is unable to get a hold of them I recommendshe return to ER for re evaluation. Patient agreeable with plan Carol Curiel APRN.CHARLEEN Prescription instructions reviewed with patient as applicable. Patient advised if symptoms do not improve or if symptoms worsen sooner, to contact their primary care physician. Potential red flag symptoms discussed with the patient. Reviewed appropriate action plan to take if red flag symptoms occur. Patient agreeable to treatment plan. I spent a total of 25 minutes on the date of the service which included preparing to see the patient, [id number] patient care, completing clinical documentation, obtaining and/or reviewing separately obtained history, performing a medically appropriate examination, and counseling and educating the patient/family/caregiver. documented in this encounterOhiohealth [facility]06-23-2024 Miscellaneous Notes* Telephone Encounter - Madelin Lockwood RN - 02/13/2024 8:41 PM EDT Reason for call; new onset fever Outcome: pcp triage: Dr Morataya consulted and recommends pt be seen for an OV tomorrow and in themeanwhile stay well hydrated. Pt will try to schedule via my chart or call in the morning to schedule. Reason for Disposition [1] Fever > 100.0 F (37.8 C) AND [2] new-onset since starting antibiotics Urine infection (FEMALE; cystitis, pyelonephritis, urethritis) diagnosed recently Answer Assessment - Initial Assessment Questions 1. MAIN SYMPTOM: New onset fever since starting atb for kidney infection temp 100.9F at 8:30pm. Last Tylenol 7:20pm 2. [id number]:Pt feeling about the same other horn. 3. PAIN: pain same 4/10 taking Tylenol 4. FEVER:100.9F 5. OTHER SYMPTOMS: none 6. DIAGNOSIS: When was the UTI diagnosed? Dx yesterday at [facility] ER 7. ANTIBIOTIC: Keflex 4 times daily 8. ANTIBIOTIC - START DATE: Got doses in ER yesterday and has taken 2 so far today at home. Was a bit of delay in starting atb at home as pt had to wait for pharmacy to open. Protocols used: Recent Medical Visit for Illness Follow-up [id number], Urinary Tract Infection on Antibiotic Follow-up Call - [id number]-[id number]-OC documented in this encounterOhiohealth [facility]06-23-2024 Telephone encounter Note * Telephone Encounter - Madelin Lockwood RN - 02/13/2024 8:41 PM EDT Reason for call; new onset fever Outcome: pcp triage: Dr Morataya consulted and recommends pt be seen for an OV tomorrow and in themeanwhile stay well hydrated. Pt will try to schedule via my chart or call in the morning to schedule. Reason for Disposition [1] Fever > 100.0 F (37.8 C) AND [2] new-onset since starting antibiotics Urine infection (FEMALE; cystitis, pyelonephritis, urethritis) diagnosed recently Answer Assessment - Initial Assessment Questions 1. MAIN SYMPTOM: New onset fever since starting atb for kidney infection temp 100.9F at 8:30pm. Last Tylenol 7:20pm 2. [id number]:Pt feeling about the same other horn. 3. PAIN: pain same 4/10 taking Tylenol 4. FEVER:100.9F 5. OTHER SYMPTOMS: none 6. DIAGNOSIS: When was the UTI diagnosed? Dx yesterday at [facility] ER 7. ANTIBIOTIC: Keflex 4 times daily 8. ANTIBIOTIC - START DATE: Got doses in ER yesterday and has taken 2 so far today at home. Was a bit of delay in starting atb at home as pt had to wait for pharmacy to open. Protocols used: Recent Medical Visit for Illness Follow-up [id number], Urinary Tract Infection on Antibiotic Follow-up Call - Rytzuv-LLXIF-YF [facility]06-22-[facility] Hospital Discharge instructions Patient Education 02/12/2024 17:42:30 Pyelonephritis, Female (Adult) Kidney Infection (Adult Female) An infection in one or both kidneys is called pyelonephritis. It usually happens when bacteria (or rarely, viruses, fungi, or other disease-causing organisms) get into the kidney. The bacteria (or other disease-causing organisms) can enter the kidneys from the bladder or blood traveling from other parts of the body. A kidney infection can become serious. It can cause severe illness, scarring ofthe kidneys, or kidney failure if not treated properly. Common causes for this problem include: Not keeping the genital area clean and dry, which promotes the growth of bacteria Wiping back to front which drags bacteria from the rectum toward the urinary opening (urethra) Wearing tight pants or underwear (this lets moisture build up in the genital area, which helps bacteria grow) Holding urine in for long periods of time Dehydration Kidney infections can cause symptoms similar to a bladder infection. Symptoms include: Pain (or burning) when urinating Having to urinate more often than usual Blood in the urine (pink or red) Abdominal pain or discomfort, usually in the lower abdomen Pain in the side or back Pain above the pubic bone Fever or chills Vomiting Loss of appetite Treatment is oral antibiotics, or in more severe cases, intramuscular or IV antibiotics. These are started right away and may be changed once urine culture results determine the infecting organisms. Treatment helps prevent a more serious kidney infection. Medicines Medicines can help in the treatment of a bladder infection: Take antibiotics until they are used up, even if you feel better. It is important to finish them tomake sure the infection is gone. Unless another medicine was prescribed, you can use liyo-nqc-yisgvlj medicines for pain, fever, or discomfort. If you have chronic liver of kidney disease, talk with your healthcare provider before using these medicines. Also talk with your provider if you've ever had a stomach ulcer or gastrointestinal (GI) bleeding, or are taking blood thinners. Home care The following are general care guidelines: Stay home from work or school. Rest in bed until your fever breaks and you are feeling better, or as advised by your healthcare provider. Drink lots of fluid unless you must restrict fluids for other medical reasons. This will force the medicine into your urinary system and flush the bacteria out of your body. Ask your healthcare provider how much you should drink. Don't have sex until you have finished all of your medicine and your symptoms are gone. Don't have caffeine, alcohol, or spicy foods. These foods may irritate the kidneys and bladder. Don't take bubble baths. Sensitivity to the chemicals in bubble baths can irritate the urethra. Make sure you wipe from front to back after using the toilet. Wear loose cloths and cotton underwear. Prevention These self-care steps can help prevent future infections: Drink plenty of fluids to prevent dehydration and flush out the bladder. Do this unless you must restrict fluids for other health reasons, or your healthcare provider told you not to. Proper cleaning after going to the bathroom in important. Make sure you wipe from front to back after using the toilet. Urinate more often. Don't try to hold urine in for a long time. Don't wear tight-fitting pants and underwear. Improve your diet to prevent constipation. Eat more fruits, vegetables, and fiber. Eat less junk and fatty foods. Constipation can make a urinary tract infection more likely. Talk with your healthcare provider if you have trouble with bowel movements. Urinate right after intercourse to flush out the bladder. Follow-up care Follow up with your healthcare provider, or as advised. Additional testing may be needed to make sure the infection has cleared. Close follow-up and further testing is very important to find the cause and to prevent future infections. If a urine culture was done, you will be contacted if your treatment needs to be changed. If directed, you may call to find out the results. If you had an X-ray, CT scan, or other diagnostic test, you will be notified of any new findings that may affect your care. Call 911 Call 911 if any of the following occur: Trouble breathing Fainting or loss of consciousness Rapid or very slow heart rate Weakness, dizziness, or fainting Difficulty arousing or confusion When to seek medical advice Call your healthcare provider right away if any of these occur: Fever 100.4 F (38 C) or higher, or as directed by your healthcare provider Not feeling better within 1 to 2 days after starting antibiotics Any symptom that continues after 3 days of treatment Increasing pain in the stomach, back, side, or groin area Repeated vomiting Not able to take prescribed medicine due to nausea or another reason Bloody, dark-colored, or foul smelling urine Trouble urinating or decreased urine output No urine for 8 hours, no tears when crying, sunken eyes, or dry mouth [id number] [employer]. [address] [place] [address]. All rights reserved. This information is not intended as a substitute for professional medical care. Always follow yourhealthcare professional's instructions. Follow Up Care 02/12/2024 15:50:00 With:KIMBERLY LUNA Address: [address] [facility] [address] [facility] [place] [address]- Business (1) When:2-4 days With:Your PCP or Dr. Luna Address:Unknown When:2-4 days Comments:Schedule appointment as soon as possibleReturn to ED if symptoms worsenIncrease fluidsFollow-up forrecheck and culture resultsReturn for symptoms as describedCan use Anaprox DS for painAnd can use Tylenol [facility] 06-22-2024 Note Discharge Instructions Thank you for allowing [facility] to assist you with your healthcare needs. The following is importantdischarge information regarding your hospital visit. Diagnosis from Today's Visit Pyelonephritis What to Do Next Instructions from Your Care Team No qualifying data available. Post Acute Orders No qualifying data available. You Need to Schedule the Following Appointments Follow Up with KIMBERLY LUNA When:Within 2-4 days Where:[address] [facility] [place] [address]- Business (1) Follow Up with Your PCP or Dr. Luna When:Within 2-4 days Additional Information: Schedule appointment as soon as possible Return to ED if symptoms worsen Increase fluids Follow-up for recheck and culture results Return for symptoms as described Can use Anaprox DS for pain And can use Tylenol Allergies NKA Medications Please ask your primary doctor or pharmacist before taking any other medication not listed, including over the counter drugs, herbal medications, vitamins and or supplements as they may interact withyour home medications. What How Much When Instructions Last Dose New cephalexin (cephalexin 500 mg oral capsule) 1 cap by mouth Every 6 hours Duration: 10 Days Printed Prescription New naproxen (Anaprox-DS 550 mg oral tablet) 1 tab(s) by mouth Two (2) times a day Duration: 10 Days Printed Prescription New ondansetron (Zofran ODT use ondansetron oral tablet, disintegrating ) 8 Milligram by mouth Two (2) times a day Duration: 3 Days As needed for nausea vomiting Printed Prescription Unchanged herbal/ nutritional product (Probiotic) 1 cap by mouth Every day Unchanged ibuprofen (ibuprofen 600 mg oral tablet) 1 tab(s) by mouth Every 6 hours Unchanged magnesium gluconate (magnesium gluconate 500 mg oral tablet) 2 tab(s) by mouth Daily at bedtime Please take this list to your next doctor s visit. Bring all medications you take, including over the counter medications, herbals and other supplements with you to your doctor s visit. Patients and families are reminded to discard old lists and to update any records with all medication providers or retail pharmacies. Education Materials Kidney Infection (Adult Female) An infection in one or both kidneys is called pyelonephritis. It usually happens when bacteria (or rarely, viruses, fungi, or other disease-causing organisms) get into the kidney. The bacteria (or other disease-causing organisms) can enter the kidneys from the bladder or blood traveling from other parts of the body. A kidney infection can become serious. It can cause severe illness, scarring ofthe kidneys, or kidney failure if not treated properly. Common causes for this problem include: Not keeping the genital area clean and dry, which promotes the growth of bacteria Wiping back to front which drags bacteria from the rectum toward the urinary opening (urethra) Wearing tight pants or underwear (this lets moisture build up in the genital area, which helps bacteria grow) Holding urine in for long periods of time Dehydration Kidney infections can cause symptoms similar to a bladder infection. Symptoms include: Pain (or burning) when urinating Having to urinate more often than usual Blood in the urine (pink or red) Abdominal pain or discomfort, usually in the lower abdomen Pain in the side or back Pain above the pubic bone Fever or chills Vomiting Loss of appetite Treatment is oral antibiotics, or in more severe cases, intramuscular or IV antibiotics. These are started right away and may be changed once urine culture results determine the infecting organisms. Treatment helps prevent a more serious kidney infection. Medicines Medicines can help in the treatment of a bladder infection: Take antibiotics until they are used up, even if you feel better. It is important to finish them tomake sure the infection is gone. Unless another medicine was prescribed, you can use uofr-tsk-oyqeiuw medicines for pain, fever, or discomfort. If you have chronic liver of kidney disease, talk with your healthcare provider before using these medicines. Also talk with your provider if you've ever had a stomach ulcer or gastrointestinal (GI) bleeding, or are taking blood thinners. Home care The following are general care guidelines: Stay home from work or school. Rest in bed until your fever breaks and you are feeling better, or as advised by your healthcare provider. Drink lots of fluid unless you must restrict fluids for other medical reasons. This will force the medicine into your urinary system and flush the bacteria out of your body. Ask your healthcare provider how much you should drink. Don't have sex until you have finished all of your medicine and your symptoms are gone. Don't have caffeine, alcohol, or spicy foods. These foods may irritate the kidneys and bladder. Don't take bubble baths. Sensitivity to the chemicals in bubble baths can irritate the urethra. Make sure you wipe from front to back after using the toilet. Wear loose cloths and cotton underwear. Prevention These self-care steps can help prevent future infections: Drink plenty of fluids to prevent dehydration and flush out the bladder. Do this unless you must restrict fluids for other health reasons, or your healthcare provider told you not to. Proper cleaning after going to the bathroom in important. Make sure you wipe from front to back after using the toilet. Urinate more often. Don't try to hold urine in for a long time. Don't wear tight-fitting pants and underwear. Improve your diet to prevent constipation. Eat more fruits, vegetables, and fiber. Eat less junk and fatty foods. Constipation can make a urinary tract infection more likely. Talk with your healthcare provider if you have trouble with bowel movements. Urinate right after intercourse to flush out the bladder. Follow-up care Follow up with your healthcare provider, or as advised. Additional testing may be needed to make sure the infection has cleared. Close follow-up and further testing is very important to find the cause and to prevent future infections. If a urine culture was done, you will be contacted if your treatment needs to be changed. If directed, you may call to find out the results. If you had an X-ray, CT scan, or other diagnostic test, you will be notified of any new findings that may affect your care. Call 911 Call 911 if any of the following occur: Trouble breathing Fainting or loss of consciousness Rapid or very slow heart rate Weakness, dizziness, or fainting Difficulty arousing or confusion When to seek medical advice Call your healthcare provider right away if any of these occur: Fever 100.4 F (38 C) or higher, or as directed by your healthcare provider Not feeling better within 1 to 2 days after starting antibiotics Any symptom that continues after 3 days of treatment Increasing pain in the stomach, back, side, or groin area Repeated vomiting Not able to take prescribed medicine due to nausea or another reason Bloody, dark-colored, or foul smelling urine Trouble urinating or decreased urine output No urine for 8 hours, no tears when crying, sunken eyes, or dry mouth [id number] [employer]. [address] [place] [address], [place] [address]. All rights reserved. This information is not intended as a substitute for professional medical care. Always follow yourhealthcare professional's instructions. Additional Information VACCINATE! IT SAVES LIVES! Members of the community who have not yet received the COVID-19 vaccine and would like to receive it can visit one of [facility] vaccine clinics. There are many vaccine clinic locations within the [facility]. For locations and available times, please visit www.[email or web address].[email or web address]/. It is important to note that some COVID mobile vaccine clinics are held outdoors and may be canceled in rainy or stormy conditions. To learn more about pediatric vaccinations (ages 5-11), we invite you to visit the [facility] webpage. [email or web address]/pages/[email or web address]-Giyrgdqbcde-Fluhbobmmn-[email or web address]-[email or web address] stions.htmlTo learn more about the COVID-19 vaccine, we invite you to visit the CDC website for a list of frequently asked questions. https://www.cdc.gov/coronavirus/2019-ncov/vaccines/faq.html [facility] Patient Portal Access Instructions: Stay connected with your healthcare team and access your personal medical information anytime with the [facility] Patient Portal. If you would like a full copy of your medical records please contact the [facility] Medical Records Department Wednesday through Wednesday between 8a.m. and 4:30p.m. Please follow the directions below to access the portal: 1.Access the email account you provided upon registration to the hospital.2.Look for an invitation email from [facility].3.Open the email and access the invitation link: Accept Invitation to [facility]4.Fill in the required leal to create your account. Sign into [email or web address] with your username and password that you created in the above steps to stay up to date. You can then view a summary of results, a summary of your visits, and the ability to download your summaries to your computer or send the information securely to a physician. Remember that your healthcare information is confidential, so carefully consider who you will allow to register on the [facility] Patient Portal for access to your information. You can also access the [facility] Patient Portal on the [employer] tania. Simply click on Health Records under [place] and then click on the [facility] logo. HOW TO SAFELY DISPOSE OF PRESCRIPTION MEDICATIONS Please use one of the following methods to safely dispose of your unused medications. 1.Use a drug disposal kit: the drug disposal pouch allows you to safely discard your old and unuseddrugs. Ask your nurse to give you one when you are discharged.2.Visit a local take-back location: Many local pharmacies and police departments have programs that collect old and unwanted prescriptiondrugs. Call your local pharmacy or go to http://bit.Joint Loyalty/8U3Hz7s to find one close to you.3.Make use of household items: Use cat litter or old coffee grounds to dispose medications if other options arenot available. Mix your drugs with these household products, seal them in an airtight container andthrow it into the garbage. Call [facility]: [phone] to be sure your drugs can be disposed of in this way. Some medicines may require a different approach.4.Never flush your medications down the toilet. IF YOU HAVE BEEN PRESCRIBED AN OPIOIDS FOR PAIN If you have been prescribed an opioid (such as hydrocodone, oxycodone or morphine), it is critical to understand the possible side effects and risks of opioid pain medications. Even when taken as directed, opioids can have several side effects including: Tolerance, meaning you might need to take more of a medication for the same pain relief. Nausea, vomiting and/or constipation. Sleepiness, dizziness, dry mouth, confusion, depression or itching. Physical dependence, meaning you have withdrawal symptoms when a medication is stopped ? this can develop within a few days. KNOW YOUR RESPONSIBILITIES It is important to know exactly how much and how often to take the opioid pain medications you are prescribed. Never take opioids in higher amounts or more often than prescribed. Do not combine opioids with alcohol or other drugs that cause drowsiness, such as benzodiazepines, also known as benzos,including diazepam and alprazolam, muscle relaxants or sleep aids. Never sell or share prescriptionopioids. This is illegal. Store opioids in a secure place and out of reach of others (including children, family, friends and visitors). The last page(s) of this document has been signed and retained as a CHART COPY Signatures Patient Education Materials Omkaronephritis, Female (Adult) Medication Leaflets My discharge plan and instructions have been reviewed and explained to me and IJACKSON BRITTANY P understand my current condition and have read and understand these discharge instructions. I have received a written copy of the plan/instructions. If I have questions, I am aware that I should contact my doctor. 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 Multiplanar reformatted images are provided for review. Automated exposure control, iterative reconstruction, and/or weight based adjustment of the mA/kV was utilized to reduce the radiation dose to as low as reasonably achievable. COMPARISON: CT abdomen pelvis 08/10/2015 HISTORY: ORDERING SYSTEM PROVIDED HISTORY: Reason for Exam: LEFT flank pain FINDINGS: No acute osseous abnormalities. No significant degenerative changes. Small bilateral pars defects at L5-S1. The visualized lung bases are predominantly clear. No pleural or pericardial effusion. Cholecystectomy clips. The unenhanced liver, spleen, pancreas, and adrenal glands are unremarkable. Mild haziness and fat stranding surrounding the left kidney. No evidence of hydronephrosis or urolithiasis. Small calcific density adjacent to the left uterus was also seen on prior and is favored to represent a pelvic phlebolith. The bladder is unremarkable. Small calcific density in the right uterus may represent a calcified fibroid or surgical clip. No adnexal masses. Small amount of free pelvic fluid, which may be physiologic in nature. Small calcifications in the region of the cervix/lower uterus. The uterus is retroflexed and retroverted, unchanged since 2015. The stomach and small bowel are unremarkable. The appendix is not definitively identified, however no pericecal inflammation is seen. The colon is unremarkable. Nonaneurysmal aorta. No pathologically enlarged lymph nodes are identified. No free intraperitoneal air. Small fat containing umbilical hernia. IMPRESSION: Mild haziness and fat stranding surrounding the left kidney with no visualized obstructive uropathy. This may be seen with an ascending infectious/inflammatory process. Correlation with urinalysis is recommended. Additional chronic and incidental findings as above. I have personally reviewed the images of this examination and agree with the resident's findings and interpretation. Interpreted by: Nikolai Brewster Preliminary Report By: Idalia Samson Electronically signed By Nikolai Brewster Dictated Date: 02/12/2024 5:24:21 PM Prelim Date: 02/12/2024 5:32:48 PM Sign Date: 02/12/2024 5:37:47 PM [facility] + Plan note Diagnostic Tests Pending * Urine Culture 02/12/24 [facility] 06-29-2023 Evaluation + Plan noteExtracted from: Title:Clinical Document Author:AMINTA RAPP DO Date:02/18/23 [place] ADMISSION HISTORY AN D PHYSICIAL History and Physical Update I have examined the patient; reviewed the H&P and there are no changes to the H&P unless noted below. [facility] 06-29-2023 Hospital Discharge instructions Patient Education 02/18/2023 10:29:19 Diagnostic Laparoscopy, Care After Diagnostic Laparoscopy, Care After This sheet gives you information about how to care for yourself after your procedure. Your health care provider may also give you more specific instructions. If you have problems or questions, contact your health care provider. What can I expect after the procedure? After the procedure, it is common to have: Mild discomfort in the abdomen. Sore throat. Women who have laparoscopy with pelvic examination may have mild cramping and fluid coming from thevagina for a few days after the procedure. Follow these instructions at home: Medicines Take lhao-hif-uoiskls and prescription medicines only as told by your health care provider. If you were prescribed an antibiotic medicine, take it as told by your health care provider. Do notstop taking the antibiotic even if you start to feel better. Driving Do not drive for 24 hours if you were given a medicine to help you relax (sedative) during your procedure. Do not drive or use heavy machinery while taking prescription pain medicine. Bathing Do not take baths, swim, or use a hot tub until your health care provider approves. You may take showers. Incision care Follow instructions from your health care provider about how to take care of your incisions. Make sure you: ?Wash your hands with soap and water before you change your bandage (dressing). If soap and water are not available, use hand ward maid. ?Change your dressing as told by your health care provider. ?Leave stitches (sutures), skin glue, or adhesive strips in place. These skin closures may need to stay in place for 2 weeks or longer. If adhesive strip edges start to loosen and curl up, you may trim the loose edges. Do not remove adhesive strips completely unless your health care provider tells you to do that. Check your incision areas every day for signs of infection. Check for: ?Redness, swelling, or pain. ?Fluid or blood. ?Warmth. ?Pus or a bad smell. Activity Return to your normal activities as told by your health care provider. Ask your health care provider what activities are safe for you. Do not lift anything that is heavier than 10 lb (4.5 kg), or the limit that you are told, until your health care provider says that it is safe. General instructions To prevent or treat constipation while you are taking prescription pain medicine, your health care provider may recommend that you: ?Drink enough fluid to keep your urine pale yellow. ?Take bsed-njd-cjihljz or prescription medicines. ?Eat foods that are high in fiber, such as fresh fruits and vegetables, whole grains, and beans. ?Limit foods that are high in fat and processed sugars, such as fried and sweet foods. Do not use any products that contain nicotine or tobacco, such as cigarettes and e-cigarettes. If you need help quitting, ask your health care provider. Keep all follow-up visits as told by your health care provider. This is important. Contact a health care provider if: You develop shoulder pain. You feel lightheaded or faint. You are unable to pass gas or have a bowel movement. You feel nauseous or you vomit. You develop a rash. You have redness, swelling, or pain around any incision. You have fluid or blood coming from any incision. Any incision feels warm to the touch. You have pus or a bad smell coming from any incision. You have a fever or chills. Get help right away if: You have severe pain. You have vomiting that does not go away. You have heavy bleeding from the vagina. Any incision opens. You have trouble breathing. You have chest pain. Summary After the procedure, it is common to have mild discomfort in the abdomen and a sore throat. Check your incision areas every day for signs of infection. Return to your normal activities as told by your health care provider. Ask your health care provider what activities are safe for you. This information is not intended to replace advice given to you by your health care provider. Make sure you discuss any questions you have with your health care provider. Document Released: 07/20/2016 Document Revised: 07/22/2018 Document Reviewed: 02/02/2018 [employer] Patient Education 2020 [employer]. 02/18/2023 10:28:38 Monitored Anesthesia Care, Care After Monitored Anesthesia Care, Care After These instructions provide you with information about caring for yourself after your procedure. Your health care provider may also give you more specific instructions. Your treatment has been plannedaccording to current medical practices, but problems sometimes occur. Call your health care provider if you have any problems or questions after your procedure. What can I expect after the procedure? After your procedure, you may: Feel sleepy for several hours. Feel clumsy and have poor balance for several hours. Feel forgetful about what happened after the procedure. Have poor judgment for several hours. Feel nauseous or vomit. Have a sore throat if you had a breathing tube during the procedure. Follow these instructions at home: For at least 24 hours after the procedure: Have a responsible adult stay with you. It is important to have someone help care for you until youare awake and alert. Rest as needed. Do not: ?Participate in activities in which you could fall or become injured. ?Drive. ?Use heavy machinery. ?Drink alcohol. ?Take sleeping pills or medicines that cause drowsiness. ?Make important decisions or sign legal documents. ?Take care of children on your own. Eating and drinking Follow the diet that is recommended by your health care provider. If you vomit, drink water, juice, or soup when you can drink without vomiting. Make sure you have little or no nausea before eating solid foods. General instructions Take upqc-xwu-dtedypo and prescription medicines only as told by your health care provider. If you have sleep apnea, surgery and certain medicines can increase your risk for breathing problems. Follow instructions from your health care provider about wearing your sleep device: ?Anytime you are sleeping, including during daytime naps. ?While taking prescription pain medicines, sleeping medicines, or medicines that make you drowsy. If you smoke, do not smoke without supervision. Keep all follow-up visits as told by your health care provider. This is important. Contact a health care provider if: You keep feeling nauseous or you keep vomiting. You feel light-headed. You develop a rash. You have a fever. Get help right away if: You have trouble breathing. Summary For several hours after your procedure, you may feel sleepy and have poor judgment. Have a responsible adult stay with you for at least 24 hours or until you are awake and alert. This information is not intended to replace advice given to you by your health care provider. Make sure you discuss any questions you have with your health care provider. Document Released: 11/29/2016 Document Revised: 11/07/2018 Document Reviewed: 11/29/2016 [employer] Patient Education [employer]. Follow Up Care 12/25/2022 07:35:41 With:AMINTA RAPP DO Address: [address] [place] [phone]- [phone] When: Unknown Comments:Call office to schedule follow up appointment if not already done. [facility] 06-29-2023 Summary of episode note Discharge Instructions Thank you for allowing [facility] to assist you with your healthcare needs. The following is importantdischarge information regarding your hospital visit. Your Care Team PHYSICIAN, NONE Your Diagnosis Abdominal pain, chronic, right lower quadrant Encounter for removal of Essure Status post hysteroscopy, Status post laparoscopy What to do next Follow Up Appointments Follow Up with AMINTA RAPP DO When Why: Call office to schedule follow up appointment if not already done. Where: [address] [place] [phone] The Following Activity and Diet Have Been Ordered for You Discharge Activity - Ordered -- Sexual [place] Restricted, 2 weeks, 02/18/23 10:16:00 EDT Discharge Driving Restrictions - Ordered -- No driving until pain-free, 02/18/23 10:16:00 EDT Discharge Return to Work, School, or Sports - Ordered -- within 5-7 days, May return to: work, 02/18/23 10:16:00 EDT Discharge Diet - Ordered -- No changes were made to your diet during your hospital stay. Please resume your pre hospitalization diet on discharge., 02/18/23 10:16:00 EDT Allergies NKA Medications Please ask your primary doctor or pharmacist before taking any other medication not listed, including over the counter drugs, herbal medications, vitamins and or supplements as they may interact withyour home medications. What How Much When Why Instructions Last Dose New acetaminophen-hydrocodone ([place]udson 325- 5 mg oral tablet) 1 tab(s) by mouth Every 4 hours as needed for as needed for pain Status post laparoscopy Status post hysteroscopy Duration: 3 Days Pickup at [facility] #[id number] New ibuprofen (ibuprofen 600 mg oral tablet) 1 tab(s) by mouth Every 6 hours Pickup at [facility] #[id number] Unchanged herbal/ nutritional product (Probiotic) 1 cap by mouth Every day Unchanged magnesium gluconate (magnesium gluconate 500 mg oral tablet) 2 tab(s) by mouth Daily at bedtime Pharmacy Information [facility] #[id number]: [address] [place] [address] [phone] Please take this list to your next doctor s visit. Bring all medications you take, including over the counter medications, herbals and other supplements with you to your doctor s visit. Patients and families are reminded to discard old lists and to update any records with all medication providers or retail pharmacies. Education Materials Diagnostic Laparoscopy, Care After This sheet gives you information about how to care for yourself after your procedure. Your health care provider may also give you more specific instructions. If you have problems or questions, contact your health care provider. What can I expect after the procedure? After the procedure, it is common to have: Mild discomfort in the abdomen. Sore throat. Women who have laparoscopy with pelvic examination may have mild cramping and fluid coming from thevagina for a few days after the procedure. Follow these instructions at home: Medicines Take gkvl-dlr-ihnxpuu and prescription medicines only as told by your health care provider. If you were prescribed an antibiotic medicine, take it as told by your health care provider. Do notstop taking the antibiotic even if you start to feel better. Driving Do not drive for 24 hours if you were given a medicine to help you relax (sedative) during your procedure. Do not drive or use heavy machinery while taking prescription pain medicine. Bathing Do not take baths, swim, or use a hot tub until your health care provider approves. You may take showers. Incision care Follow instructions from your health care provider about how to take care of your incisions. Make sure you: ? Wash your hands with soap and water before you change your bandage (dressing). If soap and water are not available, use hand ward maid. ? Change your dressing as told by your health care provider. ? Leave stitches (sutures), skin glue, or adhesive strips in place. These skin closures may need to stay in place for 2 weeks or longer. If adhesive strip edges start to loosen and curl up, you may trim the loose edges. Do not remove adhesive strips completely unless your health care provider tells you to do that. Check your incision areas every day for signs of infection. Check for: ? Redness, swelling, or pain. ? Fluid or blood. ? Warmth. ? Pus or a bad smell. Activity Return to your normal activities as told by your health care provider. Ask your health care provider what activities are safe for you. Do not lift anything that is heavier than 10 lb (4.5 kg), or the limit that you are told, until your health care provider says that it is safe. General instructions To prevent or treat constipation while you are taking prescription pain medicine, your health care provider may recommend that you: ? Drink enough fluid to keep your urine pale yellow. ? Take gdfn-uzq-ydovxpw or prescription medicines. ? Eat foods that are high in fiber, such as fresh fruits and vegetables, whole grains, and beans. ? Limit foods that are high in fat and processed sugars, such as fried and sweet foods. Do not use any products that contain nicotine or tobacco, such as cigarettes and e-cigarettes. If you need help quitting, ask your health care provider. Keep all follow-up visits as told by your health care provider. This is important. Contact a health care provider if: You develop shoulder pain. You feel lightheaded or faint. You are unable to pass gas or have a bowel movement. You feel nauseous or you vomit. You develop a rash. You have redness, swelling, or pain around any incision. You have fluid or blood coming from any incision. Any incision feels warm to the touch. You have pus or a bad smell coming from any incision. You have a fever or chills. Get help right away if: You have severe pain. You have vomiting that does not go away. You have heavy bleeding from the vagina. Any incision opens. You have trouble breathing. You have chest pain. Summary After the procedure, it is common to have mild discomfort in the abdomen and a sore throat. Check your incision areas every day for signs of infection. Return to your normal activities as told by your health care provider. Ask your health care provider what activities are safe for you. This information is not intended to replace advice given to you by your health care provider. Make sure you discuss any questions you have with your health care provider. Document Released: 07/20/2016 Document Revised: 07/22/2018 Document Reviewed: 02/02/2018 [employer] Patient Education 2020 [employer]. Monitored Anesthesia Care, Care After These instructions provide you with information about caring for yourself after your procedure. Your health care provider may also give you more specific instructions. Your treatment has been plannedaccording to current medical practices, but problems sometimes occur. Call your health care provider if you have any problems or questions after your procedure. What can I expect after the procedure? After your procedure, you may: Feel sleepy for several hours. Feel clumsy and have poor balance for several hours. Feel forgetful about what happened after the procedure. Have poor judgment for several hours. Feel nauseous or vomit. Have a sore throat if you had a breathing tube during the procedure. Follow these instructions at home: For at least 24 hours after the procedure: Have a responsible adult stay with you. It is important to have someone help care for you until youare awake and alert. Rest as needed. Do not: ? Participate in activities in which you could fall or become injured. ? Drive. ? Use heavy machinery. ? Drink alcohol. ? Take sleeping pills or medicines that cause drowsiness. ? Make important decisions or sign legal documents. ? Take care of children on your own. Eating and drinking Follow the diet that is recommended by your health care provider. If you vomit, drink water, juice, or soup when you can drink without vomiting. Make sure you have little or no nausea before eating solid foods. General instructions Take ojdk-qnr-laznerq and prescription medicines only as told by your health care provider. If you have sleep apnea, surgery and certain medicines can increase your risk for breathing problems. Follow instructions from your health care provider about wearing your sleep device: ? Anytime you are sleeping, including during daytime naps. ? While taking prescription pain medicines, sleeping medicines, or medicines that make you drowsy. If you smoke, do not smoke without supervision. Keep all follow-up visits as told by your health care provider. This is important. Contact a health care provider if: You keep feeling nauseous or you keep vomiting. You feel light-headed. You develop a rash. You have a fever. Get help right away if: You have trouble breathing. Summary For several hours after your procedure, you may feel sleepy and have poor judgment. Have a responsible adult stay with you for at least 24 hours or until you are awake and alert. This information is not intended to replace advice given to you by your health care provider. Make sure you discuss any questions you have with your health care provider. Document Released: 11/29/2016 Document Revised: 11/07/2018 Document Reviewed: 11/29/2016 [employer] Patient Education 2020 [employer]. Additional Information VACCINATE! IT SAVES LIVES! Members of the community who have not yet received the COVID-19 vaccine and would like to receive it can visit one of [facility] vaccine clinics. There are many vaccine clinic locations within the [facility]. For locations and available times, please visit [email or web address].[place].gov/. It is important to note that some COVID mobile vaccine clinics are held outdoors and may be canceled in rainy or stormy conditions. To learn more about pediatric vaccinations (ages 5-11), we invite you to visit the [facility] webpage. [email or web address]/[email or web address] stions.htmlTo learn more about the COVID-19 vaccine, we invite you to visit the CDC website for a list of frequently asked questions.https://www.cdc.gov/coronavirus/2019-ncov/vaccines/faq.html [facility] Patient Portal Access Instructions: Stay connected with your healthcare team and access your personal medical information anytime with the [facility] Patient Portal. Please follow the directions below to create your [facility] account: 1.Access the email account you provided upon registration to the hospital/physician office.2.Look for an invitation email from [facility].3.Open the email and access the invitation link: AcceptInvitation to [facility].4.Fill in the required leal to create your account. To access your account, visit [email or web address]. Click the blue button labeled Access Patient Portal and then log in with the username and password that you created in the steps above. You will be able to view your test results, lab results, a summary of your visits, upcoming appointments and more. There is also a convenient messaging option where you can send secure messages to your p City Voice[employer]. In addition, you will have the ability to download any documents or summaries to your computer and/or send the information securely to a physician. Remember that your healthcare information is confidential, so carefully consider who you will allowto register on the [facility] Patient Portal for access to your information. You can also access the [facility] Patient Portal on the [facility] tania. Simply click on Patient Portal and then log into your account. If you would like to receive a full copy of your medical records, please contact the [facility] Medical Records Department by calling [phone], Wednesday through Wednesday between 8 a.m. and 4:30 p.m. HOW TO SAFELY DISPOSE OF PRESCRIPTION MEDICATIONS Please use one of the following methods to safely dispose of your unused medications. 1.Use a drug disposal kit: the drug disposal pouch allows you to safely discard your old and unuseddrugs. Ask your nurse to give you one when you are discharged.2.Visit a local take-back location: Many local pharmacies and police departments have programs that collect old and unwanted prescriptiondrugs. Call your local pharmacy or go to http://bit.ly/5P5Rc3q to find one close to you.3.Make use of household items: Use cat litter or old coffee grounds to dispose medications if other options arenot available. Mix your drugs with these household products, seal them in an airtight container andthrow it into the garbage. Call [facility]: [phone] to be sure your drugs can be disposed of in this way. Some medicines may require a different approach.4.Never flush your medications down the toilet. IF YOU HAVE BEEN PRESCRIBED AN OPIOID FOR PAIN If you have been prescribed an opioid (such as hydrocodone, oxycodone or morphine), it is critical to understand the possible side effects and risks of opioid pain medications. Even when taken as directed, opioids can have several side effects including: Tolerance, meaning you might need to take more of a medication for the same pain relief. Nausea, vomiting and/or constipation. Sleepiness, dizziness, dry mouth, confusion, depression or itching. Physical dependence, meaning you have withdrawal symptoms when a medication is stopped, can develop within a few days. KNOW YOUR RESPONSIBILITIES It is important to know exactly how much and how often to take the opioid pain medications you are prescribed. Never take opioids in higher amounts or more often than prescribed. Do not combine opioids with alcohol or other drugs that cause drowsiness, such as benzodiazepines, also known as benzos, including diazepam and alprazolam, muscle relaxants or sleep aids. Never sell or share prescription opioids. This is illegal. Store opioids in a secure place and out of reach of others (including children, family, friends and visitors). The last page of this document has been signed and retained as a CHART COPY. Signatures Patient Education Materials Diagnostic Laparoscopy, Care After Monitored Anesthesia Care, Care After Medication Leaflets My discharge plan and instructions have been reviewed and explained to me and IJACKSON BRITTANY P understand my current condition and have read and understand these discharge instructions. I have received a written copy of the plan/instructions. If I have questions, I am aware that I should contact my doctor. 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 Digitally Signed by AMINTA RAPP DO on 02/18/2023 08:53 AM [facility]06-29-2023 Anesthesiology Consult note Patient: VIC PAZ Age: 38 years Sex: Female : 1985 Associated Diagnoses: None Author: WANDA ANN DUSTER TENDER-DIRECTOR ONCOLOGY Preoperative Information Time of last food or liquid consumption: 02/17/2023 23:59:00 Anesthesia history Patient's history: negative. Family's history: negative. Review of Systems Ear/Nose/Mouth/Throat: Negative except as documented in history of present illness. Respiratory: Negative except as documented in history of present illness. Cardiovascular: Negative except as documented in history of present illness. Gastrointestinal: Negative except as documented in history of present illness. Genitourinary: Negative except as documented in history of present illness. Endocrine: Negative except as documented in history of present illness. Musculoskeletal: Negative except as documented in history of present illness. Integumentary: Negative except as documented in history of present illness. Neurologic: Negative except as documented in history of present illness. Health Status Allergies: Allergic Reactions (Selected) NKA, Allergies (1) ActiveReaction NKANone Documented Current medications: (Selected) Inpatient Medications Ordered LR 1,000 mL: 125 mL/hr, Intravenous, Stop: 02/18/23 23:59:00 EDT Documented Medications Documented Probiotic: 1 cap, Oral, Daily, 0 Refill(s) magnesium gluconate 500 mg oral tablet: 1,000 mg, 2 tab(s), Oral, qHS, 0 Refill(s), Medications (1) Active Scheduled: (0) Continuous: (1) Lactated Ringers 1,000 mL 1,000 mL, Intravenous, 125 mL/hr PRN: (0) Problem list: No problem items selected or recorded., Active Problems (1) Pancreatitis Histories Past Medical History: No active or resolved past medical history items have been selected or recorded. Family History: Procedure history: Appendectomy (731272080). Cholecystectomy (50269740). Tubal ligation ([id number]). Social History Social & Psychosocial Habits Alcohol 06/14/2017Risk Assessment: Low Risk 02/04/2023 Use: Current Frequency: 1-2 times per year Substance Abuse 06/14/2017Risk Assessment: No Risk 02/04/2023 Use: Never Tobacco 02/04/2023 Tobacco Use: Former smoker, quit more Type: Cigarettes Number of years: 5 Stopped at age: 24 Years Home/Environment 02/04/2023 Domestic Concerns None Living situation: Home/Independent Primary Saas Architect: Self Current Home Treatments None Special Services and Community Resources None Spouse Name Jonnathan Marital Status of Patient if Patient Independent Adult: Nutrition/Health 02/04/2023 Type of diet: Regular Appetite Good Eating Difficulties None . Physical Examination Vital Signs 02/18/2023 6:57 EDT Temperature Temporal Artery 36.9 DegC Apical Heart Rate 87 bpm Respiratory Rate 15 br/min Systolic Blood Pressure Non-Invasive 127 mmHg Diastolic Blood Pressure Non-Invasive 82 mmHg Vital Signs(last 24 hrs) Last Charted Resp Rate 15 br/min (FEB 18 06:57) AZJ693 mmHg (FEB 18 06:57) DBP82 mmHg (FEB 18 06:57) Measurements from flowsheet : Measurements 02/18/2023 6:57 EDT Height 170.2 cm Admission Weight 92.7 kg [place] Body Weight 61.62 kg Admission Body Mass Index 32 m2 Pain assessment: Pain Assessment 02/18/2023 6:57 EDT Primary Pain Intensity 0 Pain Scale Type 0-10 Pain scale . General: Alert and oriented. Airway: Normal neck range of motion. Mallampati classification: II (soft palate, fauces, uvula visible). Head: Normocephalic. Dentition Evaluation: Intact, Own teeth. Neck: Full range of motion. Respiratory: Lungs are clear to auscultation. Cardiovascular: Normal rate. Heart Sounds: Normal. Gastrointestinal: Soft. Musculoskeletal Normal range of motion. Integumentary: Intact, Warm, Dry. Neurologic: Alert, Oriented. Review / Management Results review: No qualifying data available , Lab results 02/18/2023 7:30 EDT SN - GCD - Post-operative Diagnosis PELVIC AND PERINEAL PAIN SN - GCD - Case Level Level 3 02/18/2023 7:29 EDT SN - Assess - LOC Alert, Awake SN - Assess - Orientation Oriented X 3 SN - Assess - Post-op Skin Integrity Intact/Dry 02/18/2023 7:23 EDT SN - CAt - Case Attendee SN - CAt - Case Attendee SN - CAt - Case Attendee SN - CAt - Case Attendee SN - CAt - Case Attendee SN - CAt - Case Attendee SN - CAt - Case Attendee SN - CAt - Case Attendee SN - CAt - Case Attendee SN - CAt - Case Attendee SN - CAt - Role Performed Primary Surgeon SN - CAt - Role Performed DIRECTOR ONCOLOGY SN - CAt - Role Performed Potato Chip Sorter 1 SN - CAt - Role Performed Scrub 1 SN - CAt - Role Performed Ditcher 1 02/18/2023 7:12 EDT Continuous IV Infusions LR Hand Right 02/18/2023 20 gauge Peripheral IV Activity: Insert new site Peripheral IV Site Condition: No complications Peripheral IV Equipment: Manual, Extension set, PRN Adaptor Peripheral IV Number of Attempts: 1 02/18/2023 7:09 EDT Lactated Ringers Injection Begin Bag 1,000 mL mL 02/18/2023 7:02 EDT Ed-Plan of Care Verbalizes/Nonverbally indicates understanding Individuals Taught Patient, Spouse Learning Readiness Willing to learn Barriers to Learning None evident Teaching Method Explanation Pre Procedure/Surgery Education Appropriate expectations 02/18/2023 6:57 EDT Height 170.2 cm Admission Weight 92.7 kg [place] Body Weight 61.62 kg Admission Body Mass Index 32 m2 Temperature Temporal Artery 36.9 DegC Apical Heart Rate 87 bpm Respiratory Rate 15 br/min Systolic Blood Pressure Non-Invasive 127 mmHg Diastolic Blood Pressure Non-Invasive 82 mmHg Primary Pain Intensity 0 Pain Scale Type 0-10 Pain scale Heart Sounds ICU S1S2 Heart Rhythm Regular Respirations Unlabored Respiratory Pattern Regular All Lobes Breath Sounds Clear Cough None Oxygen Therapy Room air Oxygen Saturation 99 % Abdomen Description Non-distended, Soft Bowel Sounds All Quadrants Present Urinary Elimination Voiding, no difficulties Skin Temperature Warm Skin Description [place], Normal for ethnicity, Dry IV Present Present Extremity Movement Equal Characteristics of Speech Clear Level of Consciousness Alert Strength All Extremities Strong Tone All Extremities Normal Sensation All Extremities Intact Affect/Behavior Appropriate Orientation Oriented x 4 Allergies Yes Clinical Programmer On Yes Consent Form Signed Yes Patient Dressed In Hospital gown History & Physical Update On Chart Yes History & Physical On Chart Yes Obstructive Sleep Apnea Assess Completed Yes Orientation Assessment Oriented x 4 Activity Status ADL Ambulating in cabezas, Ambulating in room, Awake Assistive Device None SCD On/Re-applied bilateral knee high NPO Status Maintained Standard Safety ID band on, Call device within reach, Bed in low position, Wheels locked, Visitor at bedside, Safety level maintained Patient ID Band on and Verified Yes Implants Verified Yes Pacemaker/AICD Verified Yes Blood Consent Signed Yes Last Fluid Intake 02/17/2023 23:00 Last Food Intake 02/17/2023 20:30 Last Void 02/18/2023 6:59 02/18/2023 6:56 EDT Safety Brochure Information Reviewed Unable to complete [facility] Video Viewed No Teaching Evaluation No further teaching needed Admission Note-Nursing Same Day Patient History (Modified) 02/18/2023 6:46 EDT Test Urine Negative test (u) int test (u) int QC PRGUN Negative QC PRGUP Positive . Assessment and Plan [place] [employer] Anesthesiologists (ASA) physical status classification: Class II. Anesthetic Preoperative Plan Premedication: intravenous. Anesthetic technique: General. Induction: intravenously. Maintenance airway: Oral endotracheal tube. Postoperative pain management: Per surgeon. Risks discussed: nausea, vomiting, headache, sore throat, dental injury, hypotension, allergic reaction, serious complications. Informed consent: signed by patient. Digitally Signed by WANDA ANN on 02/18/2023 07:36 AM [facility]* Diagnosis Acute pyelonephritis- Primary Acute pyelonephritis without lesion of renal medullary necrosis documented in this [facility] Flank pain- Primary Abdominal pain, unspecified site [facility] Narrative No data available for this section [facility] Discharge instructions No data available for this section [facility] Progress note No data available for this section [facility] Reason for referral (narrative)No reason for referral information availableWBrecks[facility] Work Phone: Summary Purpose Family History No Family History Records Found Relationship Condition Age at Onset Recorded Date/T oleg grandmother Hypertension Unknown grandfather Cardiac disease Unknown Cerebrovascular accident (CVA) Unknown Advance Directives No Advanced Directives Records FoundNo Advanced Directives Records FoundNo Advanced Directives Records FoundNo Advanced Directives Records Found Chief Complaint and Reason for Visit Chief Complaint Admit Date 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 27, 2024 11:0 0am PELVIC PAIN December 11, 2024 12: 52pm Reason for Visit Admit Date Pelvic pain November 27, 2024 11:0 0am Encounter for routine gynecological exam ination November 27, 2024 11:00am Chief Complaint Admit Date 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 27, 2024 11:0 0am PELVIC PAIN December 11, 2024 12: 52pm Hysterectomy consult *$30 copay ok per t riage March 09, 2025 2:28pm Chief Complaint Admit Date Hysterectomy consult *$30 copay ok per t riage March 09, 2025 2:28pm TRH Cysto April 24, 2025 3:55pm Reason for Visit Admit Date Pelvic pain March 09, 2025 2:28 pm 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, 2025 2: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 Additional Source Comments INFORMATION SOURCE (unrecogn ized section and content) DATE CREATED AUTHOR 07/17/2019 [facility] DATE CREATED AUTHOR AUTHOR'S ORGANIZ ATION 02/20/2024 [facility] [place] [facility] DATE CREATED AUTHOR AUTHOR'S ORGANIZ ATION 03/26/2024 [facility] DATE CREATED AUTHOR AUTHOR'S ORGANIZ ATION 05/06/2025 [facility] Patient Care team informatio n (unrecognized section and content) Certified Peer Specialist Relationship Specialty Start Date End Date Starla Eddy MD [address] [place] [address] PCP - General Internal Medicine 01/22/15 Certified Peer Specialist Relationship Specialty Start Date End Date Starla Eddy MD [address] [facility] [place] [id number] PCP - General Internal Medicine 01/22/15 Team Status: Active Member Role Status Dates No Primary Care Physician Primary Care Provider Active Team Status: Inactive Member Role Status Dates Dr. Starla Eddy MD Primary Care Provider Active Start: November 27, 2024 End: November 27, 2024 Dr. Starla Eddy MD Referring Provider Active Start: November 27, 2024 End: November 27, 2024 MARILUZ Pradhan Attending Provider Active Start: November 27, 2024 End: November 27, 2024 Team Status: Inactive Member Role Status Dates MARILUZ Pradhan Attending Provider Active Start: December 11, 2024 End: December 11, 2024 MARILUZ Pradhan Referring Provider Active Start: December 11, 2024 End: December 11, 2024 No Primary Care Physician Primary Care Provider Active Start: December 11, 2024 End: December 11, 2024 Team Status: Active Member Role/Relationship Status Dates No Primary Care Physician Primary Care Provider Active Team Status: Inactive Member Role/Relationship Status Dates Dr. Starla Eddy MD Primary Care Provider Active Start: November 27, 2024 End: November 27, 2024 Dr. Starla Eddy MD Referring Provider Active Start: November 27, 2024 End: November 27, 2024 MARILUZ Pradhan Attending Provider Active Start: November 27, 2024 End: November 27, 2024 Team Status: Inactive Member Role/Relationship Status Dates MARILUZ Pradhan Attending Provider Active Start: December 11, 2024 End: December 11, 2024 MARILUZ Pradhan Referring Provider Active Start: December 11, 2024 End: December 11, 2024 No Primary Care Physician Primary Care Provider Active Start: December 11, 2024 End: December 11, 2024 Team Status: Inactive Member Role/Relationship Status Dates No Primary Care Physician Primary Care Provider Active Start: March 09, 2025 End: March 09, 2025 No Primary Care Physician Referring Provider Active Start: March 09, 2025 End: March 09, 2025 Dr. Ambika Prieto DO Attending Provider Activ e Start: March 09, 2025 End: March 09, 2025 Team Status: Inactive Member Role/Relationship Status Dates No Primary Care Physician Primary Care Provider Active Start: March 09, 2025 End: March 09, 2025 No Primary Care Physician Referring Provider Active Start: March 09, 2025 End: March 09, 2025 Dr. Ambika Prieto DO Attending Provider Activ e Start: March 09, 2025 End: March 09, 2025 Team Status: Inactive Member Role/Relationship Status Dates No Primary Care Physician Primary Care Provider Active Start: April 24, 2025 End: April 24, 2025 No Primary Care Physician Referring Provider Active Start: April 24, 2025 End: April 24, 2025 Dr. Ambika Prieto DO Attending Provider Activ e Start: April 24, 2025 End: April 24, 2025 Source Comments (unrecognize d section and content) In the event this informatio n is protected by the Federal Confidentiality of Alcohol and Drug Abuse Patient Records regulations: The Federal rules restrict any use of the information to criminally investigate or prosecute any alcohol or drug abuse patient.[facility] the event this information is protected by the Federal Confidentiality of Alcohol and Drug Abuse Patient Records regulations: The Federal rules restrict any use of the information to criminally investigate or prosecute any alcohol or drug abuse patient.[facility] the event this information is protected by the Federal Confidentiality of Alcohol and Drug Abuse Patient Records regulations: The Federal rules restrict any use of the information to criminally investigate or prosecute any alcohol or drug abuse patient.[facility] Reason for Visit (unrecogniz ed section and content) Reason Comments Follow Up Reason Comments [facility] with [facility] Reason Comments Flank Pain Left side x 1 day Goals (unrecognized section and content) Goals may be documented in a n alternate section FOR RECORDS PERTAINING TO PATIENTS WHO ARE OR HAVE BEEN ENROLLED IN A CHEMICAL DEPENDENCY/SUBSTANCEABUSE PROGRAM, SOME INFORMATION MAY BE OMITTED. This clinical summary was aggregated from multiple sources. Caution should be exercised in using it in the provision of clinical care. This summary normalizes information from multiple sources, and as a consequence, information in this document may materially change the coding, format and clinical context of patient data. In addition, data may be omitted in some cases. CLINICAL DECISIONS SHOULD BE BASED ON THE PRIMARY CLINICAL RECORDS. [facility] [employer] [facility]. provides no warranty or guarantee of the accuracy or completeness of information in this document.
[2025-05-08] MEDS: Magnesium 2 GM for ERAS IV (06:05)
[2025-05-08 06:10] LABS: Hematocrit 38.1 % (37-47); Hemoglobin 12.9 g/dL (12.0-15.0); Mean Corp Hgb Conc 33.9 g/dL (32-36); Mean Corpuscular Volume 84.9 fL (81-99); Mean Platelet Vol. 9.3 fl (6.2-12.0); Platelet Count 226 K/mm3 (150-450); RBC Distribution Width CV 12.2 % (11.6-14.6); RBC Distribution Width SD 37.3 fl (35.1-43.9); Red Blood Count 4.49 M/mm3 (4.2-5.4); White Blood Count 8.4 K/mm3 (4.4-11.0)
[2025-05-08] MEDS: Scopolamine 1mg/72hr Patch 1 PATCH TD (06:21)
[2025-05-08] MEDS: Lactated Ringers 1,000 ML 40 ML IV (06:21)
--- NOTE | 2025-05-08 06:31 | PCM.PRE.AN2 ---
ASA Classification* ASA Classification ASA Classification: 1 Assessment & Plan Anesthesia* Anesthesia Assessment Anesthesia Assessment: Discussed sedation and/or anesthesia options, risks, benefits, and alternatives with patient/parents/legal guardian/POA. Questions invited. The patient/parents/legal guardian/POA seems to understand and agrees to proceed with anesthesia plan. Reviewed the physical assessment, medical history, allergy history and patient home medications list prior to surgery/procedure/anesthetic and documented any changes. Performed airway and anesthesia risk assessments. Anesthesia Type Anesthesia Type: General History Source History Obtained from:: Patient and Chart Anesthesia Focused Assessment* Temperature: 98.5 F Pulse Rate: 86 Blood Pressure: 109/72 Respiratory Rate: 18 Pulse Ox: 97 Oxygen Delivery Method: Room Air Airway Assessment Mouth opens: >3 cm Mallampati Score: II Teeth Condition: Caps/Crowns (Patient has a crown on the top right molar. It is tight.) Neck Range of motion (ROM): Full ROM Labs Anesthesia Preop lab: CBC WBC 8.4 K/mm3 (4.4-11.0) 05/08/25 06:03 05/08/25 RBC 4.49 M/mm3 (4.2-5.4) 05/08/25 06:03 05/08/25 Hgb 12.9 g/dL (12.0-15.0) 05/08/25 06:03 05/08/25 Hct 38.1 % (37-47) 05/08/25 06:03 05/08/25 Plt Count 226 K/mm3 (150-450) 05/08/25 06:03 05/08/25 CHEMISTRY Potassium 4.0 mmol/L (3.5-5.1) 11/18/17 11:40 11/18/17 Sodium 140 mmol/L (136-145) 11/18/17 11:40 11/18/17 Magnesium 1.9 mg/dL (1.5-2.2) 04/24/25 15:40 04/24/25 BUN 12 mg/dL (7-18) 11/18/17 11:40 11/18/17 Creatinine 0.70 mg/dL (0.55-1.02) 11/18/17 11:40 11/18/17 Glucose 92 mg/dL (74-106) 11/18/17 11:40 11/18/17 POC Glucose 96 mg/dL (70-110) 10/05/12 21:42 10/05/12 COAG Pre-Assessment Diagnosis/Proposed Procedure Planned Operative Procedure(s): ROBOTIC TOTAL HYSTERECTOMY, CYSTO Anesthesia History 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 When Was Last Pacemaker Check QUESTION #4 FULL TEXT: You/Your Family Experience fever (hyperthermia) with Anesthesia Last Oral Intake Last Oral intake: Last Oral Intake NPO since 04:30 05/08/25 06:17 Meds taken in AM with sips of No 05/08/25 06:17 water? 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 laborer Female Yes 04/24/25 14:19 HX of Motion Sickness No 04/24/25 14:19 HX of N/V After Surgery Yes 04/24/25 14:19 Non-Smoker Yes 04/24/25 14:19 Duration of Surgery greater Yes 04/24/25 14:19 than 60 minutes Number of Risk Factors 4 04/24/25 14:19 PONV Score Severe Risk 04/24/25 14:19 Height & Weight Height & Weight: Anesthesia: Height & Weight Height 5 ft 8 in 05/08/25 06:17 Weight: 97.9 kg 05/08/25 06:17 Body Mass Index (BMI) 32.8 05/08/25 06:17 Respiratory Assessment Respiratory Assessment - construction or leak gang laborer: Respiratory Tract Infection Hx - construction or leak gang laborer Hx Respiratory Tract Infection No 04/24/25 14:19 STOP Sleep Apnea STOP Sleep Apnea - construction or leak gang laborer: STOP Sleep Apnea - construction or leak gang laborer Hx Hypertension No 04/24/25 14:19 Hx Sleep Apnea No 04/24/25 14:19 CPAP BIPAP Do you snore loudly (louder No 04/24/25 14:19 than talking or can be heard Do you often feel tired/ No 04/24/25 14:19 fatigued/ sleepy during daytime? Has anyone observed you stop No 04/24/25 14:19 breathing during sleep? STOP Results Negative 04/24/25 14:19 QUESTION #5 FULL TEXT : Do you snore loudly (louder than talking or can be heard through closed doors)? 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 Specify any problems Hx of Preganancy in last 3 No 04/24/25 14:19 Months Nurse Filling Out Transfusion [id number] 04/24/25 14:19 & Questions: Date: 04/24/25 04/24/25 14:19 Time: 14:22 04/24/25 14:19 Patient unable to answer at this time (ie. 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 gang laborer: /Reproductive Hx- construction or leak gang laborer Hx Now No 04/24/25 14:19 Gestational Age (in weeks): EDC: Hx Hx Para Hx Section SAB No 04/24/25 15:59 Active Medications Active Medications: Current Medications Generic Name Dose Route Start Last Admin Trade Name Freq PRN Reason Stop Dose Admin Acetaminophen 1,000 mg 05/08/25 07:30 05/08/25 06:22 Acetaminophen 500 Mg Tablet PO 05/08/25 07:31 1,000 mg PREOP ONE Administration Celecoxib 400 mg 05/08/25 07:30 05/08/25 06:22 Celecoxib 200 Mg Capsule PO 05/08/25 07:31 400 mg PREOP ONE Administration Gabapentin 600 mg 05/08/25 07:30 05/08/25 06:22 Gabapentin 600 Mg Tablet PO 05/08/25 07:31 600 mg PREOP ONE Administration Lactated Ringer's 1,000 mls @ 40 mls/hr 05/08/25 07:30 05/08/25 06:21 IV 40 mls/hr .Q25H MARIO Administration Cefazolin Sodium 2 gm/ Sodium 110 mls @ 150 mls/hr 05/08/25 07:30 Chloride IV 05/08/25 08:13 INTRAOP ONE Lactated Ringer's 1,000 mls @ 70 mls/hr 05/08/25 07:30 IV .[id number] MARIO Magnesium Sulfate 2 gm/ 104 mls @ 208 mls/hr 05/08/25 07:30 05/08/25 06:05 Dextrose IV 05/08/25 07:59 208 mls/hr PREOP ONE Administration Lactated Ringer's 1,000 mls @ 15 mls/hr 05/08/25 05:45 IV .Q48H MARIO Insulin Human Lispro 0 unit 05/08/25 07:30 Insulin Lispro 100 Unit/Ml Insuln.Pen SC Q4H PRN PRN BG >/= 180, SEE PROTOCOL Protocol Ondansetron HCl 4 mg 05/08/25 07:30 Ondansetron 4 Mg/2 Ml Vial IV 05/08/25 07:31 INTRAOP ONE Phenazopyridine HCl 190 mg 05/08/25 07:30 05/08/25 06:22 Phenazopyridine 95 Mg Tablet PO 05/08/25 07:31 190 mg PREOP ONE Administration Scopolamine HBr 1 patch 05/08/25 07:30 05/08/25 06:21 Scopolamine 1mg/72hr Patch TD 05/08/25 07:31 1 mg PREOP ONE Administration PFSH Medical History Former smoker Headache Lipoma Anxiety High cholesterol Home Medications ?Medication ?Instructions ?Recorded ?Last Taken ?Type NK 03/09/25 Unknown History Allergy/AdvReac Type Severity Reaction Status Date / Time No Known Allergies Allergy Verified 05/08/25 06:14 Family History Grandmother Hypertension Grandfather Heart disease CVA (cerebral vascular accident) Surgical History H/O bilateral salpingectomy S/P D&C (status post dilation and curettage) S/P appendectomy S/P tonsillectomy and adenoidectomy S/P cholecystectomy Social History adopted: No household members: family housing: house number of children: 3 current occupational status: employed current occupation: [employer] pets and animals: Yes pets and animals: cat(s) and dog(s) history of recent travel: No sexually active: Yes Smoking Status: Former smoker second hand exposure: No alcohol intake: current alcohol intake frequency: holidays/special occasions only Alcohol type: wine substance use type: does not use well-balanced diet: daily or most days caffeine: Yes Type: carbonated beverages Number of servings: 1 and coffee Number of servings: 1 eating out: other details: 1/week during the past year weight has: decreased > 10 lbs what type of physical activity do you participate in: other details: gym frequency: 3-4 times per week duration: 30-45 minutes/day eileen/worship: Taoism seatbelt use: always do you feel safe at home: Yes additional social history: - Jonnathan Review of Systems (Anesthesia) ROS Narrative System reviewed and no additional complaints, except as documented.
--- NOTE | 2025-05-08 07:23 | PCM.HP.BLA ---
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 Is patient in pain?: No Allergies No Known Allergies Allergy (Verified 04/24/25 15:57) Medications ?Medication ?Instructions ?Recorded ?Confirmed ?Type NK 03/09/25 04/24/25 History Post menopausal: No Patient : No : No PFSH Medical History Former smoker Headache Lipoma Anxiety High cholesterol Surgical History H/O bilateral salpingectomy S/P D&C (status post dilation and curettage) S/P appendectomy S/P tonsillectomy and adenoidectomy S/P cholecystectomy Family History Grandmother HypertensionGrandfather Heart disease CVA (cerebral vascular accident) Social History adopted: No household members: family housing: house number of children: 3 current occupational status: employed current occupation: [employer] pets and animals: Yes pets and animals: cat(s) and dog(s) history of recent travel: No sexually active: Yes Smoking Status: Former smoker second hand exposure: No alcohol intake: current alcohol intake frequency: holidays/special occasions only Alcohol type: wine substance use type: does not use well-balanced diet: daily or most days caffeine: Yes Type: carbonated beverages Number of servings: 1 and coffee Number of servings: 1 eating out: other details: 1/week during the past year weight has: decreased > 10 lbs what type of physical activity do you participate in: other details: gym frequency: 3-4 times per week duration: 30-45 minutes/day eileen/anabaptism: Oriental Orthodox seatbelt use: always do you feel safe at home: Yes additional social history: - Jonnathan [facility] Cysto Details: VIC PAZ is a 40 year old (vaginal) who presents for surgery consultation. She is status post ablation and tubal ligation with essure and then laparoscopy. 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 SHe still has light bleeding from time to time but her pain is severe enough that it keeps her in bed. Ultrasound showed the following: REASON FOR EXAM: PELVIC PAIN; POST ABLATION 2016 TECHNIQUE: Transabdominal pelvic ultrasound COMPARISON: None. FINDINGS: The uterus is retroverted and heterogeneous in appearance. The uterus measures up to 8.6 x 6.4 x 5.4 cm. A fibroid is noted within the uterus measuring up to 2 x 1.6 x 1.5 cm. The fibroid is located within the posterior wall. The endometrial thickness measures up to 6.5 mm. The ovaries demonstrate normal arterial and venous flow without evidence of ovarian torsion. The right ovary measures up to 2.4 x 3.1 x 2.3 cm. The left ovary measures up to 2.9 x 3.8 x 1.7 cm. Bilateral ovaries contains cysts. Trace free fluid seen within the cul-de-sac. US/Pelvic w/ Transvaginal IMPRESSION: The uterus appears somewhat heterogeneous. Correlate clinically for adenomyosis. A 2 cm fibroid is noted within the uterus. No evidence of ovarian torsion. History 5 Elective abortions Hx Para 3 Spontaneous abortions Hx # Term Pregnancies Ectopic pregnancies Hx # Pregnancies Multiple births # of living children 3 ROS Const ROS Unobtainable: All systems reviewed & are unremarkable except as noted in H Resp Resp: Reports system reviewed and no additional complaints, except as documented; Denies cough GI GI: Reports as per HPI Psych Psych: Reports system reviewed and no additional complaints, except as documented Exam Const General: cooperative, healthy appearing, comfortable and no acute distress Resp Effort & Inspection: normal respiratory effort Skin General: no rashes or lesions noted Psych Appearance: grossly normal Speech and Movement: speech and movement normal Coding Level of Care Code Off vis,est,level 4 Diagnoses 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 I have discussed with the patient the risks, benefits, and alternatives of the procedure which include but are not limited to risks of anesthesia, bleeding, infection, possible damage to bowel, bladder, or surrounding vasculature which could lead to additional surgery to evaluate any complications. Patient agrees to procedure and wishes to proceed. ACOG/uptodate references given for additional information regarding procedure. plan for total robotic hysterectomy, cystoscopy
--- NOTE | 2025-05-08 07:24 | PCM.DC ---
Discharge Instructions DC O2, CPAP, BIPAP needs Home O2 Discharge instructions: No Dressing / Incision Discharge Activity: May Shower May resume sexual activity in: 8 weeks Weight Bearing Status: Full weight bearing Lifting Restrictions: 10 pounds for 2 weeks Dressing / Incision Call your doctor if your incision/area has: Continuous Slow Oozing, Sudden Increased Bleeding, Increased Pain/ Swelling, Increased Redness and Foul Smelling Discharge Call your doctor if you observe: Fever of 101 or Higher, Using more than 1 pad per hour, Shortness of breath, Chest pain and Uncontrolled pain Suture Line Care: Avoid Pulling/Pushing and Avoid Pinching/Bending Remove Dressing in: 1 week (if present) Cleanse incision/area with: Soap & Water and Keep Dressing Clean & Dry Follow Up Care Please Follow Up With: Ambika Prieto DO When: Call to make an appointment with your doctor for a postop visit in 2 and 6 weeks Test Results: Test results from this visit will be discussed in further detail at your follow-up appointment, if applicable. Discharge Plan Admission Primary Reason for Your Visit: robotic hysterectomy Attending Provider: Ambika Prieto Primary Care Provider: Care Physician,Jessenia Primary Instructions Print Language: Indonesian Discharge Orders/Prescriptions Prescriptions: New oxycodone-acetaminophen [Percocet] 5-325 mg tablet 1 tab PO Q4H PRN (Reason: pain) 7 Days Qty: 20 0RF ibuprofen 800 mg tablet 800 mg PO Q8H PRN (Reason: pain) Qty: 30 0RF Referrals / Follow Up: Care Physician,No Primary [Primary Care Provider] - Disposition Disposition (needs filled in before D/C Order can be placed): Home, Self Care
[2025-05-08] MEDS: Midazolam 2 MG/2 ML Syringe IV (07:30)
[2025-05-08] MEDS: Lactated Ringers 1,000 ML 1000 ML IV (07:30)
[2025-05-08] MEDS: Cefazolin 1 GM/5 ML Vial 2 GM IV (07:30)
--- NOTE | 2025-05-08 07:30 | UT_PTH ---
PATIENT: VIC PAZ LOC: [facility] [place] U#:[id number] AGE/SX: 40/F ROOM: RE05/08/[address]: Dr. Ambika Prieto DO : 1985 BED: DIS: 05/08/2025 SPEC #: [id number] RECD: 05/08/25 10:03 STATUS: EZEKIEL MARKO #: [id number] LATISHA: 05/08/25 07:[address]: Ambika Prieto DEPT: SURGICAL PATHOLOGY RECD BY: Oliverio Cheung ENTERED: 05/08/25 14:15 SP TYPE: UTERUS OTHR DR: No Primary Care Phys Tissues: A - Uterus, NOS Procedures: Surgery Specimen Level V HEADER OPERATION: ERAS, laparoscopic total robotic hysterectomy, cystoscopy PRE-OP DIAGNOSIS: Post endometrial ablation syndrome, pelvic pain TISSUE SUBMITTED: A- Uterus and cervix MICROSCOPIC DIAGNOSIS A. Uterus and uterine cervix, laparoscopic hysterectomy: - Squamous metaplasia and chronic cystic endocervicitis of the uterine cervix - Weakly proliferative endometrium - Adenomyosis of the myometrium, consistent with post endometrial ablation, benign - Hyperemic fibrovascular serosal adhesions MICROSCOPIC DESCRIPTION Slides are reviewed. GROSS DESCRIPTION A. Received in formalin labeled with the patient's name and date of . Designated as uterus and cervix is a 131.7 g, 8.6 x 6.0 x 4.5 cm uterus without attached adnexa. The serosa is pale north-pink with focal adhesions and an exposed, 0.5 cm sánchez metallic portion of hardware (consistent with a contraceptive device) at the insertion point of the right fallopian tube. The attached cervix is north-pink and measures 3.7 x 3.6; the 1.2 cm os is patent and expelling hemorrhagic mucoid material and clotted blood. Mucinous containing cysts are present. The specimen is oriented using the presumed, posterior peritoneal reflection which is slightly lower than the anterior aspect. The specimen is inked as follows: Odqjapvo-ybkogEctetkxzb-dtpxdGpeyyygdlss-orange. Opening reveals a 4.9 x 1.5 cm fibrotic and stenotic endometrial canal lined by minimal, possible endometrium measuring up to 0.1 cm thick. The myometrium is north-pink, trabeculated and somewhat cystic, measuring up to 3.2 cm thick. The myometrium near the cornu is somewhat fibrotic and lobulated, possibly representing leiomyomas, up to 1.3 cm. Cleaner And Presser sections are submitted as follows: A1: Anterior cervixA2: Posterior cervixA3: Anterior endometrium and myometriumA4: Posterior endometrium and myometriumA5: Fibrotic and lobulated myometrium (possible leiomyoma)A6: Serosal adhesions SD 05/08/2025 CPT:83162
[2025-05-08] MEDS: Lidocaine 1% (5 ml sdv) 5 ML Vial IV (07:37)
[2025-05-08] MEDS: fentaNYL 100 MCG/2 ML Ampul IV (08:18)
--- NOTE | 2025-05-08 09:18 | PCM.OPRPT ---
Problems Associated Problem List Diagnoses (1) Post endometrial ablation syndrome: (2) Pelvic pain: Multi Select Codes Urinary/Genital Urinary/Genital CPT Codes: 11309 Cystoscopy and 06873 TLH <250gr uterus Operative Report (Standard) Operative Information Date of Procedure: 05/08/25 Pre-Operative Diagnosis: pelvic pain, post ablation syndrome Post-Operative Diagnosis: pelvic pain, post ablation syndrome Surgery/Procedure Performed: total robotic hysterectomy, cystoscopy square cutter: Yes Security Assistant: Jessica Alejandre Tasks completed by talent acquisition assistant: Closing, Insert Trochanter, Trocar and Retracting Additional first assistant manager?: No Type of Anesthesia: General RN Documented Start/Stop Times: Operation Date: 05/08/25 07:30 Case Time Into Pre-Op 05/08/25 05:40 Out of Pre-Op 05/08/25 07:27 Anesthesia Start 05/08/25 07:30 Into Room 05/08/25 07:30 Procedure End 05/08/25 09:20 Anesthesia End 05/08/25 09:25 Out of Room 05/08/25 09:25 Into Recovery 05/08/25 09:30 Procedure Start Time: 07:52 Procedure Stop Time: 09:25 Select all DRAINS/GRAFTS/IMPLANTS that apply: None Estimated Blood Loss: 75cc Fluids Replaced: 1100 Specimen collected: Yes Description of specimen(s) removed: uterus and cervix Description of surgery: Findings: 8 cm size uterus, normal appearing ovaries and tubes. The right upper aspect of the uterus, an essure device was present in the serosa. On exploration of the abdominal cavity the uterus, adnexa, bowel, and liver were found to be normal. Cystoscopy showed no evidence of leaking at approximately 250 cc of normal saline, positive ureteral orifices and jet flow are seen and no suture material was appreciated in the bladder. Specimens removed: Uterus and cervix Reason for surgery: This is a 40-year-old G5, P3 who presented to my office with history of ablation. prior to that she had an essure procedure that resulted in pain. The fallopian tubes were removed but her pain remained. the planned procedure is for a robotic hysterectomy the risks benefits and alternatives were discussed with the patient the patient had a clear understanding of the procedure and a consent form was signed. Procedure: The patient was placed in the dorsal low lithotomy position and prepped and draped in the normal sterile fashion both abdominally and in the perineum. Her legs were placed in stirrups a Herrera catheter was inserted into the urethra without difficulty. A weighted speculum was placed in the vagina and a single-tooth tenaculum was used to grasp the anterior lip of the cervix. An advincula uterine manipulator was inserted through the cervix without complication. It was then tied into place at the 2 and 10:00 locations on the cervix. Gloves were changed and attention was turned towards the abdomen. Approximately 23 cm above the pubic symphysis in the midline, and after Marcaine injection, a 8 mm incision was made. An 8 mm trocar was inserted through the laparoscope, then inserted into the abdomen under direct visualization using the laparoscope. Good abdominal placement was noted and no complications were appreciated. An air seal device was utilized to create pneumoperitoneum. At 12 cm lateral to the midline on the left and right sides 8 mm accessory ports were placed. Next a left upper quadrant 8 mm first assistant manager port site was placed. The patient was placed in steep Trendelenburg position. The robot was docked. The hysterectomy was initiated first by taking down the round ligament on each side using the vessel sealer device. The Ovarian ligaments were cauterized and cut. The broad ligament was then and taken down using the vessel sealer device. Next the bladder flap was taken down without complication. This was done using monopolar cautery to the level of the cervical vaginal junction. After the bladder flap was created, uterine vessels were then isolated and cauterized using the vessel sealer device and EndoShears. At this point the uterine vessels were taken down further starting from the ascending branch, dissecting along the edges of the cervix to the level of the cervical vaginal junction with hemostasis appreciated. The cervical vaginal junction was then using monopolar cautery in a circumferential pattern across the superior aspect of the cervix. The specimen was delivered through the vagina and sent to pathology. The remaining vaginal cuff was then closed using a V lock suture. This was performed in a running technique. Excellent hemostasis was obtained and good closure was noted. Irrigation was then performed. All operative sites were noted to be hemostatic. A cystoscopy was performed with a 70 degree cystoscope through the urethra into the bladder without complication. The bladder was instilled with approximately 250 cc of normal saline. Intraoperative images were made. Ureteral orifices and jets were identified. No suture material was appreciated in the bladder. The bladder was then drained and cystoscope was removed. The abdominal cavity was again examined. Hemoblast was applied to the cuff. All operative sites were noted to be hemostatic. The trochars were removed under direct visualization without complication and pneumoperitoneum was reduced. At this point the skin was then closed using 4-0 Monocryl subcuticular stitch and sealed with surgical glue. The patient tolerated the procedure well sponge lap and needle counts were correct x2 the patient was taken to the recovery room in stable condition. Surgical Findings: essure device in right upper uterine serosa Complications Complications: No Admit VTE Documentation VTE Present on Admission: No VTE Mechan Device Prophylaxis: SCD's VTE Pharm Prophylaxis ordered?: No Reason prophylaxis not ordered: Treatment Not Indicated
--- NOTE | 2025-05-08 09:35 | PCM.POST.ANE ---
Anesthesia: Postop Eval I Current Vital Signs Temperature: 97.7 F Pulse Rate: 93 Blood Pressure: 142/90 Respiratory Rate: 22 Pulse Ox: 100 Oxygen Delivery Method: Nasal Cannula Oxygen Flow Rate (L/min): 3 Assessment Airway patent: Yes Spontaneous unlabored respirations: Yes Mental status: Awake nausea: No Vomiting: No Anesthesia Complication: No Fluid Hydration Crystalloid volume administer (ml): 1,100 Total IV fluid infused: 1,100 Progress Note Anesthesia document: Postop Eval 1 completed: Yes
[2025-05-08] MEDS: Lactated Ringers @ 70 MLS/HR 70 ML IV (09:57)
[2025-05-08] MEDS: HYDROcodone Bitartrate/Apap 5/325 Tablet PO (11:50)
--- NOTE | 2025-05-08 15:16 | POSTOPAN2_ITS ---
Anesthesia Postop Eval I Sum Postop Eval Completion status Anesthesia document: Postop Eval 1 completed: Yes Anesthesia Postop Eval I Summary Anesthesia Postop Eval I Summary: Anesthesia Postop Eval I: Assessment Summary Airway patent Yes 05/08/25 09:36 FINISHING AREA OPERATOR.[email or web address] Spontaneous unlabored Yes 05/08/25 09:36 FINISHING AREA OPERATOR.[email or web address] respirations Mental status Awake 05/08/25 09:36 FINISHING AREA OPERATOR.[email or web address] nausea No 05/08/25 09:36 FINISHING AREA OPERATOR.[email or web address] Vomiting No 05/08/25 09:36 FINISHING AREA OPERATOR.[email or web address] Anesthesia Postop Eval I: Fluid Summary Crystalloid volume administer 1,100 05/08/25 09:36 FINISHING AREA OPERATOR.[email or web address] (ml) Colloids volume administered ( ml) Blood Product volume administered (ml) Total IV fluid infused 1,100 05/08/25 09:36 FINISHING AREA OPERATOR.[email or web address] Anesthesia Postop Eval I: Summary Notes Anesthesia Complication No 05/08/25 09:36 FINISHING AREA OPERATOR.[email or web address] Anesthesia Complication Comment: Post-operative progress note Anesthesia: Postop Eval II Evaluation Mental status: Awake and Calm Pain Level: 2 nausea: No Vomiting: No Complications Anesthesia Complication: No
--- NOTE | 2025-05-08 15:16 | PCM.POSTANE2 ---
Anesthesia Postop Eval I Sum Postop Eval Completion status Anesthesia document: Postop Eval 1 completed: Yes Anesthesia Postop Eval I Summary Anesthesia Postop Eval I Summary: Anesthesia Postop Eval I: Assessment Summary Airway patent Yes 05/08/25 09:36 DIRECTOR [email or web address] Spontaneous unlabored Yes 05/08/25 09:36 DIRECTOR REPORT.[email or web address] respirations Mental status Awake 05/08/25 09:36 DIRECTOR [email or web address].[email or web address] nausea No 05/08/25 09:36 DIRECTOR REPORT.[email or web address] Vomiting No 05/08/25 09:36 DIRECTOR REPORT.[email or web address] Anesthesia Postop Eval I: Fluid Summary Crystalloid volume administer 1,100 05/08/25 09:36 DIRECTOR [email or web address] (ml) Colloids volume administered ( ml) Blood Product volume administered (ml) Total IV fluid infused 1,100 05/08/25 09:36 DIRECTOR [email or web address].[email or web address] Anesthesia Postop Eval I: Summary Notes Anesthesia Complication No 05/08/25 09:36 DIRECTOR REPORT.[email or web address] Anesthesia Complication Comment: Post-operative progress note Anesthesia: Postop Eval II Evaluation Mental status: Awake and Calm Pain Level: 2 nausea: No Vomiting: No Complications Anesthesia Complication: No
== END 2025-05-08 12:50 | disposition home or self-care (01) ==
LOC: SDC 05:22 → AC 05:24
PROVIDERS: Anesthesiology; Referring Provider Obstetrics & Gynecology; Visit Provider Obstetrics & Gynecology
PROC: 0UT94ZZ Resection of Uterus, Percutaneous Endoscopic Approach (ICD-10-PCS; CPT 58570; principal; 2025-05-08 07:10)
DX: N80.03 Adenomyosis of the uterus (principal); Z79.4 Long term (current) use of insulin; E78.00 Pure hypercholesterolemia, unspecified; Z87.891 Personal history of nicotine dependence; N99.85 Post endometrial ablation syndrome; N87.9 Dysplasia of cervix uteri, unspecified; N72 Inflammatory disease of cervix uteri; N88.1 Old laceration of cervix uteri; Z79.899 Other long term (current) drug therapy
CPT/HCPCS: 58570; S2900; 00840; 36415; 83735; 85025; 85027; 86850; 86900; 86901; 88307; J2405